=== PATIENT | female | born 1995 | race Caucasian/White ===

== ENCOUNTER → 2017-02-23 | Outpatient (REF) | payer OTHER ==
[~2017-02-23] MED LIST: CELE10TA PO; CELE20TA PO; CITA20TA4 PO; ZOLO50TA PO
== END ==
LOC: M LAB REF 20:00
PROVIDERS: ATTEND Physician Assistant
DX: R30.0 Dysuria (principal)

== ENCOUNTER 2017-03-28 23:42 | Inpatient (IN) | payer OTHER ==
[~2017-03-28] VITALS: Ht 170.2 cm; Wt 88.0 kg
[~2017-03-28 23:42] MED LIST changes: -CELE10TA PO; -CITA20TA4 PO
[2017-03-29 01:59] LABS: MEAN CORPUSCULAR HEMOGLOBIN 31.6 pg (27.0-33.0); MEAN CORPUSCULAR HGB CONC 34.7 g/dl (32.0-36.5); RED CELL DISTRIBUTION WIDTH 12.8 % (11.5-14.5); WHITE BLOOD COUNT 10.5 K/mm3 (4.0-10.0)
[2017-03-29 02:02] LABS: METHADONE URINE NEGATIVE (NEGATIVE)
[2017-03-29 02:03] LABS: GLUCOSE, FASTING 104 MG/DL (70-105)
[2017-03-29 02:04] LABS: ALKALINE PHOSPHATASE 83 U/L (45-117); ALT/SGPT 17 U/L (12-78); ANION GAP 0 MEQ/L (8-16); AST/SGOT 14 U/L (15-37); BILIRUBIN,DIRECT 0.1 MG/DL (0.0-0.2); BILIRUBIN,TOTAL 0.4 MG/DL (0.2-1.0); BLOOD UREA NITROGEN 7 MG/DL (7-18); CALCIUM LEVEL 8.6 MG/DL (8.5-10.1); CARBON DIOXIDE LEVEL 32 MEQ/L (21-32); CHLORIDE LEVEL 111 MEQ/L (98-107); CREATININE FOR GFR 0.75 MG/DL (0.55-1.02); GLOMERULAR FILTRATION RATE > 60.0 (>60); SODIUM LEVEL 143 MEQ/L (136-145); TOTAL PROTEIN 7.4 GM/DL (6.4-8.2)
[2017-03-29 02:05] LABS: ALBUMIN 3.9 GM/DL (3.2-5.2); ALBUMIN/GLOBULIN RATIO 1.11 (1.00-1.93); CONTROL LINE HCG INT CTR LINE PRESENT
[2017-03-29] MEDS ORDERED: LR 500 ML IV ONE (06:45)
[2017-03-29] MEDS ORDERED: MAALOX 30 ML SUSP *UDC PO PRN (09:00)
[2017-03-29] MEDS ORDERED: traZODone 50 MG TAB PO PRN (09:00)
[2017-03-29] MEDS ORDERED: MOM 30ML SUSPENSION UDC PO PRN (09:00)
[2017-03-29] MEDS ORDERED: ACETAMINOPHEN TAB 650MG DOSE (2X325MG) PO PRN (09:00)
[2017-03-29 11:29] VITALS: BP 121/84
[2017-03-29] MEDS ORDERED: LORazepam 2 MG TAB PO PRN (12:45)
--- NOTE | 2017-03-29 13:29 | MHHPE ---
DATE OF ADMISSION: 03/29/2017 Kaye Jha is a 21-year-old, single, white female who was driven here by her friend because she was drunk. She had drank in addition to her other alcohol an entire bottle of liquor. She apparently made suicidal statements. 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 She has worked there for 3 years. She has previously been admitted here in 2013 for suicide attempts. She does not remember her followup and was apparently here for a week. She is presently living with an aunt who has a son that the patient occasionally does cocaine with. Prior to that, she had been living with a roommate who she left after 1 month and prior to that living with a boyfriend who she left after a 3 year relationship. Her mother and brother are both from suicide attempts. Her father is in custodial for producing methamphetamine. PSYCHIATRIC HISTORY: As above. ALCOHOL HISTORY: Patient drinks every day Twist Teas 4-5 tall ones and at least a 1/4 bottle of vodka a night. She has been drinking this heavily for approximately 4-5 months. DRUG USE: As mentioned. She rarely does cocaine with her cousin. EDUCATIONAL HISTORY: High school diploma. Dropped out of college. MEDICAL HISTORY: Is negative. SURGICAL HISTORY: She had wrist surgery at age 12. LEGAL HISTORY: Is negative. The patient's speech is normal. No disturbance of thought processes. Mood is low. Affect is sad. No loose associations or psychotic thoughts. Judgment and Insight are poor. Fully oriented. Recent and remote memory are not intact at this time. Attention and concentration are poor. No disturbance of language. Full fund of knowledge. DIAGNOSIS: Major depression. Alcohol dependence. PLAN OF TREATMENT: Withdrawal orders to be given at this time and patient will be re-evaluated after withdrawal.
[2017-03-29] MEDS: FOLIC ACID 1 MG TAB PO SCH (13:36)
[2017-03-29] MEDS: MULTIVITAMINS/MINERALS THERAP 1 TAB PO SCH (13:36)
[2017-03-29] MEDS: THIAMINE 100 MG TAB PO SCH ×2 (13:36→21:00)
[2017-03-29 13:37] VITALS: BP 120/84
[2017-03-29 18:28] VITALS: BP 130/70
[2017-03-29 20:00] VITALS: BP 128/74
[2017-03-30 06:59] VITALS: BP 120/72
[2017-03-30] MEDS: THIAMINE 100 MG TAB PO SCH ×2 (09:17→21:08)
[2017-03-30] MEDS: FOLIC ACID 1 MG TAB PO SCH (09:17)
[2017-03-30] MEDS: MULTIVITAMINS/MINERALS THERAP 1 TAB PO SCH (09:17)
--- NOTE | 2017-03-30 10:20 | HPEPDOC ---
[facility] Medical History & Physical Date of Admission Mar 30, 2017 History and Physical PCP: None ATTENDING: Dr. Иван Liu HPI: 21 yo F admitted to [facility] for unspecified depressive disorder, being medically examined today. Patient is reluctant to provide history. Some of history is taken from the chart. No acute medical complaints today. Denies any fevers, chills, weakness, fatigue , BOWEN, CP, SOB, cough, palpitations, abdominal pain, N/V/D or changes in bowel or bladder habits. PMHx: Depression Anxiety History of SI. Overdose 2012. Substance use. Alcohol use. 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 Illicit Drugs: Patient denies. History of cocaine and marijuana use as per chart. IV Drug Use: Denies Tattoos done unprofessionally: Denies FAMHX: Mother: , suicide 2010 Father: Incarcerated related to methamphetamine manufacture. Siblings: One sister Alive, well. One brother , suicide 2013. Children: None Unexpected deaths due to medical reasons: None. ROS: As noted in HPI, otherwise 11pt ROS of systems reviewed and remarkable only for LMP 03/29/17. PE: GEN: 21 yo F, appears stated age. Well-nourished, well developed. No acute distress. Alert and oriented x 3. Avoids eye contact, reluctant to answer questions. HEENT: Normocephalic, atraumatic. Pupils are equal, round, and reactive to light. Extraocular movements are intact. No nystagmus appreciated. Sclera are nonicteric. Conjunctiva without injection. Nose midline. Nasal turbinates without bogginess. EACs both patent BL. TMs both visualized and lugo with good cone of light, no bulging or erythema. No facial asymmetry. Moist mucous membranes. Dentition fair. Pharynx pink and moist, no cobblestoning. Neck supple , trachea midline. No lymphadenopathy or thyromegaly appreciated. CHEST: Regular rate and rhythm, +S1, +S2 LUNGS: Clear to auscultation bilaterally. No wheezes, rales, or rhonchi. Breathing appears symmetric and easy. Patient is speaking in full sentences. No accessory muscle use. ABD: Round, soft, non-tender, non-distended. +Bowel sounds throughout. No rebound or guarding. No costovertebral angle tenderness. EXT: Pulses 2+ bilaterally dorsalis pedis and radial. No lower extremity edema appreciated. SKIN: [place], dry, warm. Capillary refill <2sec. No rashes. NEURO: Alert and oriented x 3. Cranial nerves III-XII are intact. No focal deficits appreciated. EKG: Pending. A&P: 21 yo F admitted to [facility] for unspecified depressive disorder. 1. Psych. Plan per Psychiatry. Obtain baseline EKG to assure the safety of psychiatric medications as they can prolong the QT interval. 2. Nicotine dependence. Patch available. 3. Mild leukocytosis. Patient is afebrile. Asymptomatic. Recheck CBC in a.m. 4. Follow up. No Primary Care Provider. Will attempt to establish PCP on discharge. 5. Substance use. Per psychiatry. Continue with MVI, Thiamine, and Folic Acid supplementation. 6. Staff member Rylie CARO present throughout exam. Vital Signs Vital Signs Date Time Temp Pulse Resp B/P (MAP) Pulse Ox O2 Delivery O2 Flow Rate FiO2 03/30/17 06:59 98.7 77 16 120/72 (88) 03/29/17 09:23 98 Room Air Home Medications No Active Prescriptions or Reported Meds Allergies Coded Allergies: No Known Allergies (Unverified , 03/19/13) Nandini Maher Mar 30, 2017 10:19
[2017-03-30] MEDS: CitaloPRAM (CeleXA) 10 MG TABLET PO SCH (11:45)
--- NOTE | 2017-03-30 11:53 | IPN ---
DATE: 03/30/2017 I met with Ms. Jha. She stated that she has been on Celexa since age 13, but stopped all of her medications 1-2 years ago. She stopped them because she was previously prescribed 1-2 years ago Wellbutrin, which she did not like. She states at times her depression is so bad she does not want to get out of bed. She feels people are against her, including her boss, he coworkers and her aunt. Her thoughts become slow. Her memory becomes decreased. She has treated this depression by drinking. I will begin patient on Celexa 30 mg by mouth every day. DIAGNOSES: Major depression. Alcohol abuse. MENTAL STATUS: Speech is normal. Thought processes normal. No loose associations. No psychotic thoughts. Judgment and insight are improved. Fully oriented. Recent and remote memory intact. Attention and concentration intact. No disturbance of language. Full fund of knowledge. Mood is neutral. Affect is same, neutral.
[2017-03-30 18:00] VITALS: BP 128/70
--- NOTE | 2017-03-30 19:56 | ECGEPIP ---
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
[2017-03-31 06:30] VITALS: BP 107/73
[2017-03-31 08:00] LABS: MEAN CORPUSCULAR HEMOGLOBIN 32.2 pg (27.0-33.0); RED CELL DISTRIBUTION WIDTH 12.7 % (11.5-14.5)
[2017-03-31] MEDS ORDERED: INFLUENZA QUADRIVALENT PF VACCINE 0.5ML SYRINGE (90686) IM ONE (09:00)
[2017-03-31] MEDS: THIAMINE 100 MG TAB PO SCH ×2 (09:51→21:07)
[2017-03-31] MEDS: CitaloPRAM (CeleXA) 10 MG TABLET PO SCH (09:51)
[2017-03-31] MEDS: MULTIVITAMINS/MINERALS THERAP 1 TAB PO SCH (09:52)
[2017-03-31] MEDS: FOLIC ACID 1 MG TAB PO SCH (09:52)
[2017-03-31 11:51] VITALS: BP 128/75
--- NOTE | 2017-03-31 12:09 | MHIPN ---
DATE: 03/31/2017 Ms. Jha is in improved mood today. Eye contact improved. She is having no difficulty with the Celexa 30 mg and is now deciding that she needs mental health and alcohol treatment followup. MENTAL STATUS EXAMINATION: Speech is normal. Thought processes show no abnormalities. No loose associations or psychotic thoughts. Judgment and insight improved. Fully oriented, with recent and remote memory intact. Attention and concentration are improved. No disturbances of language, with a full fund of knowledge. Mood is good. Affect is bright. PLAN: For outpatient alcohol and mental health treatment. Continue on Celexa 30 mg.
[2017-03-31 18:29] VITALS: BP 136/88
[2017-04-01 07:20] VITALS: BP 134/80
[2017-04-01 08:33] VITALS: BP 130/78
[2017-04-01] MEDS: MULTIVITAMINS/MINERALS THERAP 1 TAB PO SCH (08:52)
[2017-04-01] MEDS: CitaloPRAM (CeleXA) 10 MG TABLET PO SCH (08:52)
[2017-04-01] MEDS: FOLIC ACID 1 MG TAB PO SCH (08:52)
[2017-04-01 11:54] VITALS: BP 116/68
[2017-04-01 18:19] VITALS: BP 120/70
[2017-04-01 19:30] VITALS: BP 120/70
[2017-04-02 06:26] VITALS: BP 129/81
[2017-04-02] MEDS: MULTIVITAMINS/MINERALS THERAP 1 TAB PO SCH (09:14)
[2017-04-02] MEDS: CitaloPRAM (CeleXA) 10 MG TABLET PO SCH (09:14)
[2017-04-02] MEDS: FOLIC ACID 1 MG TAB PO SCH (09:14)
[2017-04-02 12:08] VITALS: BP 122/72
--- NOTE | 2017-04-02 15:17 | IPN ---
DATE: 04/02/2017 SUBJECTIVE: Kaye Jha is feeling well today. She is planning to go to outpatient. She is planning to some form of sobriety treatment, and she is planning to be discharged tomorrow. MENTAL STATUS EXAMINATION: Speech normal. No disturbance of thought processes. No loose associations. No psychotic thoughts. Mood is good. Affect is bright. Judgment and insight are good. Fully oriented. Recent and remote memory intact. No disturbance of attention and concentration. Language is normal. Full fund of knowledge. PRESENT MEDICATIONS: - citalopram 30 mg DIAGNOSES: 1. Adjustment disorder with depressed mood. 2. Alcohol abuse.
--- NOTE | 2017-04-02 15:50 | IPN ---
DATE: 04/01/2017 Ms. Jha continues in an improved mood. Eye contact is improved. The patient is having no difficulty with Celexa 30 mg and is continuing to feel that she needs mental health and alcohol treatment followup. MENTAL STATUS EXAMINATION: Speech is normal. Thought processes show no abnormalities. No loose associations or psychotic thoughts. Judgment and insight are improved. Fully oriented with recent and remote memory intact. Attention and concentration are improved. No disturbance of language. Full fund of knowledge. Mood is good. Affect is bright. Denies hallucinations, delusions, obsessions, compulsions, phobias. Denies suicidal ideation. PLAN: Outpatient alcohol and mental health treatment. Continue on Celexa 30 mg.
[2017-04-02 18:41] VITALS: BP 126/72
[2017-04-02 21:00] VITALS: BP 122/70
[2017-04-02 21:16] VITALS: BP 126/72
[2017-04-03 06:44] VITALS: BP 109/61
[2017-04-03] MEDS ORDERED: CELE10TA PO (08:35)
[2017-04-03] MEDS: MULTIVITAMINS/MINERALS THERAP 1 TAB PO SCH (08:44)
[2017-04-03] MEDS: FOLIC ACID 1 MG TAB PO SCH (08:44)
[2017-04-03] MEDS: CitaloPRAM (CeleXA) 10 MG TABLET PO SCH (08:44)
--- NOTE | 2017-04-03 10:18 | MHDS ---
DATE OF ADMISSION: 03/29/2017 DATE OF DISCHARGE: 04/03/2017 Kaye Jha, a 21-year-old single white female driven here by her friend because she was drunk. She was drunk in addition to her other alcohol intake, an entire bottle of liquor. She apparently made suicidal statements. 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 She was previously admitted here in 2013 for suicide attempt. She does not remember followup and was apparently here for a week. She is presently living with an aunt who has a son that the patient occasionally uses cocaine with. Prior to that, she had been living with a roommate who she left after a month and prior to that living with boyfriend who she left after a 3 year relationship. Her mother and brother are both from suicide attempts. Her father is in assisted for producing methamphetamine. ALCOHOL HISTORY: Patient drinks everyday Twisties four to five tall ones and a quarter bottle of vodka a night. DRUG USE: As mentioned. EDUCATIONAL HISTORY: High school diploma, dropped out of college. MEDICAL HISTORY: Negative. SURGICAL HISTORY: Wrist surgery age 12. LEGAL HISTORY: Negative. The patient's speech is normal and no disturbance of thought process. Mood is low. Affect sad. No loose associations, psychotic thoughts. Judgment and insight are poor on admission. Patient stated that she had been on Celexa age 13 but had stopped all medications 1-2 years ago because she was then prescribed Wellbutrin which she did not like. She states her depression is so bad at times she does not want to get out of bed and feels people are against her including her boss, coworkers and aunts. She was prescribed Celexa. Her mood began to improve. She is having no difficulty with her medication and had no significant withdrawal issues. Patient was planning to go to outpatient. She is planning sobriety treatment and hoping to be discharged. She continued in improved mood with no significant difficulties. MENTAL STATUS EXAMINATION ON DISCHARGE: Speech normal. Thought processes showed no abnormalities. No loose associations or psychotic thoughts. Her judgment and insight are improved. She is fully oriented. Recent and remote memory intact. Attention and concentration are improved. No disturbance of language. She had a full fund of knowledge. Her mood was good. Her affect was bright. She denies hallucinations, delusions, obsessions, compulsions, phobias and denies repetitively any suicidal ideation or plan. Laboratory examinations on 03/29 and 03/31/2017 showed no abnormalities of her CBC. Her serum chemistries were positive for a low AST and a mildly high chloride. On 03/29, she had a 0.179 alcohol. Otherwise her toxicology was negative. She is presently on citalopram 30 mg and was discharged as per discharge planning. DISCHARGE DIAGNOSES: Major depressive illness. Alcohol dependence. Discharge planning will involve alcohol rehabilitation as well as psychiatric followup. DARIO
[2017-04-03] MEDS ORDERED: CITA20TA4 PO (10:54)
== END 2017-04-03 15:00 | disposition home or self-care (01) | DRG 754 ==
LOC: M ED 23:42 → M ED INP 03-29 08:59 → M PSY 03-29 09:30
PROVIDERS: ADMIT Psychiatry & Neurology Psychiatry; ATTEND Psychiatry & Neurology Child & Adolescent Psychiatry
DX: F32.9 Major depressive disorder, single episode, unspecified (principal); D72.829 Elevated white blood cell count, unspecified; F10.20 Alcohol dependence, uncomplicated; F17.200 Nicotine dependence, unspecified, uncomplicated

== ENCOUNTER 2017-09-18 22:17 | Emergency (ER) | payer OTHER | END 2017-09-18 23:30 | disposition home or self-care (01) | LOC: M ED 22:17 | DX: B86 Scabies (principal); F17.210 Nicotine dependence, cigarettes, uncomplicated | CPT/HCPCS: 99282 ==

== ENCOUNTER → 2017-10-20 | Outpatient (CLI) | payer OTHER ==
[2017-10-20 13:20] LABS: BASO % 0.4 % (0.0-1.0); EOS # 0.4 10^3/uL (0.0-0.50); EOS % 4.3 % (0.0-3.0); HEMATOCRIT 40.5 % (36.0-47.0); IMMATURE GRANULOCYTE % 0.3 % (0-3.0); LYMPH # 2.4 10^3/uL (1.5-6.5); MEAN CORPUSCULAR HEMOGLOBIN 30.4 pg (27.0-33.0); MEAN CORPUSCULAR HGB CONC 34.6 g/dl (32.0-36.5); MONO # 0.5 10^3/uL (0.0-0.8); MONO % 5.3 % (0.0-5.0); NEUTROPHILS # 6.9 10^3/uL (1.8-7.7); NEUTROPHILS % 66.7 % (36.0-66.0); PLATELET COUNT, AUTOMATED 266 10^3/uL (150-450); RED CELL DISTRIBUTION WIDTH 12.2 % (11.5-14.5); WHITE BLOOD COUNT 10.3 10^3/uL (4.0-10.0)
[2017-10-20 14:19] LABS: RUBELLA IgG QUALITATIVE IMMUNE (IMMUNE)
[2017-10-20 14:23] LABS: HBsAg Prenatal NEGATIVE (NEGATIVE)
[2017-10-20 14:49] LABS: HIV 1&2 SCREEN CENTAUR NEGATIVE (NEGATIVE)
[2017-10-20 14:49] LABS: HEPATITIS C VIRUS ABY INDEX < 0.0 INDEX (<0.8)
== END ==
LOC: M SMT 11:33
DX: Z34.81 Encounter for supervision of other normal pregnancy, first trimester (principal)
CPT/HCPCS: 86762

== ENCOUNTER → 2017-12-12 | Outpatient (REF) | payer OTHER | LOC: M LAB REF 13:05 | DX: Z34.82 Encounter for supervision of other normal pregnancy, second trimester (principal) ==

== ENCOUNTER → 2018-01-12 | Outpatient (CLI) | payer OTHER | LOC: M RAD 11:03 | DX: Z34.82 Encounter for supervision of other normal pregnancy, second trimester (principal); Z36.89 Encounter for other specified antenatal screening; Z3A.18 18 weeks gestation of pregnancy | CPT/HCPCS: 76811 ==

== ENCOUNTER → 2018-02-06 | Outpatient (REF) | payer OTHER ==
[2018-02-06 22:10] LABS: CHLAMYDIA DNA AMPLIFICATION NEGATIVE (NEGATIVE); GC DNA AMPLIFICATION NEGATIVE (NEGATIVE)
== END ==
LOC: M LAB REF 17:05
DX: Z34.82 Encounter for supervision of other normal pregnancy, second trimester (principal); Z3A.00 Weeks of gestation of pregnancy not specified
CPT/HCPCS: 87086

== ENCOUNTER → 2018-02-16 | Outpatient (CLI) | payer OTHER | LOC: M RAD 06:49 | DX: Z34.82 Encounter for supervision of other normal pregnancy, second trimester (principal); Z3A.23 23 weeks gestation of pregnancy | CPT/HCPCS: 76816 ==

== ENCOUNTER → 2018-03-26 | Outpatient (CLI) | payer OTHER | LOC: M RAD 15:45 | DX: O32.1XX0 Maternal care for breech presentation, not applicable or unspecified (principal); Z36.89 Encounter for other specified antenatal screening; Z3A.29 29 weeks gestation of pregnancy | CPT/HCPCS: 76816 ==

== ENCOUNTER → 2018-05-12 | Outpatient (REF) | payer OTHER | LOC: M LAB REF 17:27 | DX: J02.9 Acute pharyngitis, unspecified (principal) ==

== ENCOUNTER → 2018-05-17 | Outpatient (REF) | payer OTHER | LOC: M LAB REF 12:40 | DX: Z34.83 Encounter for supervision of other normal pregnancy, third trimester (principal); Z3A.00 Weeks of gestation of pregnancy not specified | CPT/HCPCS: 87186 ==

== ENCOUNTER 2018-05-27 14:34 | Outpatient (CLI) | payer OTHER | END 2018-05-27 15:50 | disposition home or self-care (01) | LOC: M LDO 14:34 | DX: O36.8130 Decreased fetal movements, third trimester, not applicable or unspecified (principal); Z3A.37 37 weeks gestation of pregnancy | CPT/HCPCS: 59025 ==

== ENCOUNTER 2018-06-10 23:25 | Inpatient (IN) | payer OTHER ==
[2018-06-11] MEDS: LACTATED RINGER'S 1000 ML IV (00:45)
[2018-06-11] MEDS: PENICILLIN G POTASSIUM IV 5 MU in D5W MINI-BAG PLUS 100 ML IV (00:45)
[2018-06-11 01:01] LABS: BASO % 0.3 % (0.0-1.0); EOS # 0.3 10^3/uL (0.0-0.50); EOS % 1.9 % (0.0-3.0); HEMATOCRIT 34.2 % (36.0-47.0); HEMOGLOBIN 11.7 g/dl (12.0-15.5); IMMATURE GRANULOCYTE % 0.9 % (0-3.0); LYMPH # 2.7 10^3/uL (1.5-6.5); LYMPH % 19.7 % (24.0-44.0); MEAN CORPUSCULAR HEMOGLOBIN 30.1 pg (27.0-33.0); MEAN CORPUSCULAR HGB CONC 34.2 g/dl (32.0-36.5); MEAN CORPUSCULAR VOLUME 87.9 fl (80.0-96.0); MONO # 0.6 10^3/uL (0.0-0.8); MONO % 4.5 % (0.0-5.0); NEUTROPHILS # 10.1 10^3/uL (1.8-7.7); NEUTROPHILS % 72.7 % (36.0-66.0); PLATELET COUNT, AUTOMATED 248 10^3/uL (150-450); RED BLOOD COUNT 3.89 10^6/uL (4.00-5.40); RED CELL DISTRIBUTION WIDTH 12.3 % (11.5-14.5); WHITE BLOOD COUNT 13.9 10^3/uL (4.0-10.0)
[2018-06-11] MEDS ORDERED: FENTANYL 2MCG/ML ROPIVACAINE 0.2% IN 0.9% NACL 200ML IVBAG As Ordered (02:17)
[2018-06-11] MEDS ORDERED: LACTATED RINGER'S 1000 ML IV (02:40)
[2018-06-11] MEDS ORDERED: EPIDURAL COMMENT XX (02:40)
[2018-06-11] MEDS ORDERED: ePHEDrine SULFATE 25 MG/5 ML(5MG/ML) SYRINGE IV (02:40)
[2018-06-11] MEDS ORDERED: REFRIGERATOR IV KEYS XX (02:40)
[2018-06-11] MEDS ORDERED: NALOXONE INJ 0.4 MG/1 ML VIAL (J2310) IV (02:40)
[2018-06-11] MEDS ORDERED: diphenhydrAMINE INJ 50MG/ML VIAL (J1200) IV (02:40)
[2018-06-11] MEDS: FENTANYL/ROPIVACAINE/NACL BAG 200 ML EPIDURAL ×2 (02:40→17:38)
[2018-06-11] MEDS ORDERED: EPIDURAL/PCA KEYS XX (02:40)
[2018-06-11] MEDS ORDERED: ONDANSETRON 4MG/2ML VIAL (J2405) IV (02:40)
[2018-06-11] MEDS: LR 1,000 ML IV ×3 (03:29→16:43)
[2018-06-11] MEDS: PENICILLIN G POTASSIUM IV 2.5 MU in APPROPRIATE DILUENT 1 EA IV ×5 (05:00→21:07)
[2018-06-11] MEDS: OXYTOCIN DRIP 30 UNITS in APPROPRIATE DILUENT 1 EA IV (11:03)
[2018-06-11] MEDS: LIDOCAINE 1% MDV 20ML VIAL INFIL (22:01)
[2018-06-11 22:14] LABS: CORD GAS ABE V -5.4; CORD GAS HCO3 V 20.9 MEQ/L; CORD GAS O2 SAT V 55.8 %; CORD GAS PCO2 V 43.3 mmHg; CORD GAS PH V 7.301 UNITS; CORD GAS PO2 V 25.8 mmHg; CORD GAS SBC V 19.1 MEQ/L; CORD GAS TCO2 V 22.2 MEQ/L
[2018-06-11] MEDS ORDERED: RHOGAM 300 MCG (1500 IU) INJ (J2790) IM (22:45)
[2018-06-11] MEDS ORDERED: ANUSOL HC CREAM 30GM TOP (22:45)
[2018-06-11] MEDS ORDERED: MEASLES,MUMPS,RUBELLA VACCINE INJ (MMR-II) (90707) SC (22:45)
[2018-06-11] MEDS ORDERED: DOCUSATE SODIUM 100 MG CAP PO (22:45)
[2018-06-11] MEDS ORDERED: MOM 30ML SUSPENSION UDC PO (22:45)
[2018-06-11] MEDS ORDERED: METHYLERGONOVINE MALEATE 0.2 MG TAB PO (22:45)
[2018-06-12] MEDS: IBUPROFEN 800 MG TAB PO ×2 (06:41→19:48)
[2018-06-12] MEDS: PRENATAL VITAMINS CHEWABLE TABLET PO (09:20)
[2018-06-12] MEDS: ACETAMINOPHEN 500 MG TAB PO (13:38)
[2018-06-12] MEDS: DIBUCAINE 1% OINTMENT 30GM TOP (19:50)
[2018-06-13] MEDS: PRENATAL VITAMINS CHEWABLE TABLET PO (09:04)
== END 2018-06-13 11:42 | disposition home or self-care (01) | DRG 560 ==
LOC: M LDO 23:25 → M LDI 06-11 00:10 → M OBS 06-12 00:19
PROVIDERS: Advanced Practice Midwife
PROC: 10E0XZZ Delivery of Products of Conception, External Approach (ICD-10-PCS; principal; 2018-06-11)
PROC: 0HQ9XZZ Repair Perineum Skin, External Approach (ICD-10-PCS; 2018-06-11)
DX: O69.3XX0 Labor and delivery complicated by short cord, not applicable or unspecified (principal); O99.820 Streptococcus B carrier state complicating pregnancy; Z37.0 Single live birth; Z3A.39 39 weeks gestation of pregnancy; O70.1 Second degree perineal laceration during delivery

== ENCOUNTER → 2018-08-02 | Outpatient (CLI) | payer OTHER ==
[~2018-08-02] MED LIST changes: +CELE10TA PO; +CITA20TA4 PO; +ELIM5CRE2 TOP; +IBUP-1114 PO; +MAPA500T2 PO; +PRENTAB9 PO; +ZYRT10CA5 PO
[2018-08-02 18:28] LABS: FREE T4 1.06 NG/DL (0.76-1.46); THYROID STIMULATING HORMONE 1.38 uIU/ML (0.358-3.740); TOTAL 25(OH) VITAMIN D 19.4 NG/ML (30.0-100.0)
== END ==
LOC: M SMT 13:50
PROVIDERS: ATTEND Advanced Practice Midwife
DX: F53.0 Postpartum depression (principal)

== ENCOUNTER → 2018-08-14 | Outpatient (REF) | payer OTHER ==
[2018-08-14 15:24] LABS: CHLAMYDIA DNA AMPLIFICATION NEGATIVE (NEGATIVE); GC DNA AMPLIFICATION NEGATIVE (NEGATIVE)
== END ==
LOC: M LAB REF 13:34
PROVIDERS: ATTEND Advanced Practice Midwife
DX: Z11.3 Encounter for screening for infections with a predominantly sexual mode of transmission (principal)

== ENCOUNTER 2018-11-01 18:25 | Emergency (ER) | payer OTHER ==
[~2018-11-01] VITALS: Ht 160 cm; Wt 99.7 kg
[~2018-11-01 18:25] MED LIST changes: -CITA20TA4 PO; +CITA20TA6 PO
[2018-11-01] MEDS ORDERED: CITA10TA5 (18:30)
[2018-11-01] MEDS ORDERED: LIDOCAINE 2% MDV 20 ML VIAL SC ONE (18:45)
[2018-11-01 20:07] VITALS: BP 130/61
== END 2018-11-01 20:26 | disposition home or self-care (01) ==
LOC: M ED 18:25
DX: L60.0 Ingrowing nail (principal); F32.9 Major depressive disorder, single episode, unspecified; Z79.899 Other long term (current) drug therapy

== ENCOUNTER → 2019-04-06 | Outpatient (REF) | payer OTHER ==
[~2019-04-06] MED LIST changes: +CITA10TA5
== END ==
LOC: M LAB REF 09:27
PROVIDERS: ATTEND Physician Assistant
DX: N39.0 Urinary tract infection, site not specified (principal)

== ENCOUNTER → 2019-12-26 | Outpatient (REF) | payer OTHER ==
[~2019-12-26] MED LIST changes: +ASPE4PAD TOP; +AUGM875T28 PO; +CIPR500T3 PO; +CIPRHCOTIC OTIC; +IBUP-1022 PO; +MIRE1IUD IU; +PHEN-501 PO
== END ==
LOC: M LAB REF 15:13
PROVIDERS: ATTEND Physician Assistant
DX: N39.0 Urinary tract infection, site not specified (principal)

== ENCOUNTER 2019-12-29 17:34 | Emergency (ER) | payer OTHER ==
[~2019-12-29] VITALS: Ht 162.6 cm; Wt 97.3 kg
[~2019-12-29 17:34] MED LIST changes: -ASPE4PAD TOP; -AUGM875T28 PO; -CIPR500T3 PO; -CIPRHCOTIC OTIC; -IBUP-1022 PO; -MIRE1IUD IU; -PHEN-501 PO
[2019-12-29] MEDS ORDERED: CIPR500T3 PO (17:40)
[2019-12-29] MEDS ORDERED: PHEN-501 PO (17:40)
[2019-12-29] MEDS ORDERED: NS 1,000 ML IV ONE (18:00)
[2019-12-29] MEDS ORDERED: METHOCARBAMOL 1,000 MG/10 ML VIAL (J2800) IV ONE (18:00)
[2019-12-29 18:18] LABS: BASO # 0.1 10^3/uL (0.0-0.2); BASO % 0.6 % (0.0-1.0); EOS # 0.5 10^3/uL (0.0-0.5); EOS % 3.6 % (0.0-3.0); HEMATOCRIT 42.7 % (36.0-47.0); HEMOGLOBIN 14.2 g/dl (12.0-15.5); LYMPH # 3.4 10^3/uL (1.5-5.0); LYMPH % 27.3 % (24.0-44.0); MEAN CORPUSCULAR HEMOGLOBIN 29.3 pg (27.0-33.0); MEAN CORPUSCULAR HGB CONC 33.3 g/dl (32.0-36.5); MONO # 0.6 10^3/uL (0.0-0.8); MONO % 5.1 % (0.0-5.0); NEUTROPHILS # 7.9 10^3/uL (1.5-8.5); NEUTROPHILS % 63.1 % (36.0-66.0); PLATELET COUNT, AUTOMATED 299 10^3/uL (150-450); RED BLOOD COUNT 4.85 10^6/uL (4.00-5.40); WHITE BLOOD COUNT 12.4 10^3/uL (4.0-10.0)
[2019-12-29] MEDS: KETOROLAC 30 MG/ML 1ML VIAL IV ONE ×2 (19:28→19:31)
[2019-12-29 19:39] VITALS: BP 146/84
== END 2019-12-29 19:43 | disposition home or self-care (01) ==
LOC: M ED 17:34
DX: R31.29 Other microscopic hematuria (principal); F17.200 Nicotine dependence, unspecified, uncomplicated; M54.9 Dorsalgia, unspecified; Z87.440 Personal history of urinary (tract) infections
CPT/HCPCS: 80047; 81001; 84702; 85025; 87086; 96361; 96374; 99284; J2800

== ENCOUNTER 2020-01-09 23:07 | Emergency (ER) | payer OTHER ==
[~2020-01-09] VITALS: Ht 162.6 cm; Wt 96.6 kg
[~2020-01-09 23:07] MED LIST changes: +CIPR500T3 PO; +PHEN-501 PO
[2020-01-09] MEDS ORDERED: MIRE1IUD IU (23:17)
[2020-01-10 00:44] VITALS: BP 128/75
[2020-01-10] MEDS ORDERED: AUGMENTIN 875 MG TAB PO ONE (00:45)
[2020-01-10] MEDS ORDERED: CIPROFLOXACIN HC OTIC SUSPENSION AD ONE (00:45)
[2020-01-10] MEDS ORDERED: LIDOCAINE 5% (LIDODERM) PATCH TD ONE (00:45)
[2020-01-10] MEDS ORDERED: IBUPROFEN 600MG TAB PO ONE (00:45)
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
[2020-01-10] MEDS ORDERED: CIPRHCOTIC OTIC (01:30)
[2020-01-10] MEDS ORDERED: ASPE4PAD TOP (01:30)
[2020-01-10] MEDS ORDERED: AUGM875T28 PO (01:30)
[2020-01-10] MEDS ORDERED: IBUP-1022 PO (01:30)
[2020-01-10] MEDS ORDERED: **NOTE PATIENT COMMENT** MISC XX ONE (13:00)
== END 2020-01-10 02:03 | disposition home or self-care (01) ==
LOC: M ED 23:07
DX: H60.8X1 Other otitis externa, right ear (principal); M54.2 Cervicalgia

== ENCOUNTER → 2020-02-14 | Outpatient (REF) | payer OTHER ==
[~2020-02-14] MED LIST changes: +ASPE4PAD TOP; +AUGM875T28 PO; +CIPRHCOTIC OTIC; +CITA10TA5 PO; +EXCETAB33 PO; +IBUP-1022 PO; +MIRE1IUD IU
== END ==
LOC: M LAB REF 09:16
PROVIDERS: ATTEND Physician Assistant
DX: H60.501 Unspecified acute noninfective otitis externa, right ear (principal)

== ENCOUNTER 2020-03-27 12:43 | Emergency (ER) | payer OTHER ==
[~2020-03-27] VITALS: Ht 162.6 cm; Wt 101.3 kg
[~2020-03-27 12:43] MED LIST changes: -CITA10TA5 PO; -EXCETAB33 PO
[2020-03-27 12:45] VITALS: BP 125/67
[2020-03-27] MEDS ORDERED: EXCETAB33 PO (12:52)
[2020-03-27] MEDS ORDERED: CITA10TA5 PO (12:52)
[2020-03-27 14:25] LABS: HEMATOCRIT 42.9 % (36.0-47.0); HEMOGLOBIN 14.2 g/dl (12.0-15.5); MEAN CORPUSCULAR HEMOGLOBIN 29.5 pg (27.0-33.0); MEAN CORPUSCULAR HGB CONC 33.1 g/dl (32.0-36.5); PLATELET COUNT, AUTOMATED 248 10^3/uL (150-450); RED BLOOD COUNT 4.82 10^6/uL (4.00-5.40); WHITE BLOOD COUNT 13.5 10^3/uL (4.0-10.0)
[2020-03-27 14:45] LABS: BLOOD UREA NITROGEN 11 MG/DL (7-18); CALCIUM LEVEL 9.2 MG/DL (8.5-10.1); CARBON DIOXIDE LEVEL 25 MEQ/L (21-32); CHLORIDE LEVEL 107 MEQ/L (98-107); CREATININE FOR GFR 0.73 MG/DL (0.55-1.30); GLOMERULAR FILTRATION RATE > 60.0 (>60); GLUCOSE, FASTING 97 MG/DL (70-100); POTASSIUM SERUM 4.3 MEQ/L (3.5-5.1); SODIUM LEVEL 138 MEQ/L (136-145)
--- NOTE | 2020-03-28 12:02 | ECGEPIP ---
[facility] - ED Test Date: 2020-03-27 Pat Name: KINGSLEY PEREZ Department: Room: - Gender: Female Incident Commander: PATRICIA : 1995 Requested By: LUIS MIGUEL ZAVALA PA-C. Order Number: [id number] Reading MD: Nabor Presley Measurements Intervals [place] Rate: 83 P: 42 WV: 155 QRS: 30 QRSD: 86 T: 29 QT: 357 QTc: 421 Interpretive Statements SINUS RHYTHM SIMILAR TO 03/30/17 Electronically Signed on 03-28-2020 12:01:58 EDT by Nabor Presley
== END 2020-03-27 15:06 | disposition left against medical advice (07) ==
LOC: EEVIPCON 12:43 → M ED 12:43
DX: H60.8X1 Other otitis externa, right ear (principal); R42 Dizziness and giddiness; Z53.20 Procedure and treatment not carried out because of patient's decision for unspecified reasons; F17.200 Nicotine dependence, unspecified, uncomplicated; Z79.82 Long term (current) use of aspirin; Z79.899 Other long term (current) drug therapy

== ENCOUNTER 2020-08-09 20:07 | Emergency (ER) | payer OTHER ==
[~2020-08-09] VITALS: Ht 165.1 cm; Wt 97.7 kg
[~2020-08-09 20:07] MED LIST changes: +CITA10TA5 PO; +EXCETAB33 PO
--- OUTSIDE RECORDS SUMMARY | 2020-08-09 21:16 | CCD | Continuity of Care Document ---
Author Author Kaye OLEARY MD Organization Unknown Address [address] [place] [address] Phone [phone] Care Team Providers Care Promotions Executive Name Role Phone Samaria Oleary MD AUTM [phone] [facility] Behavioral Health AUTM [phone] [facility] Gastroenterology AUTM [phone] [place] ENT AUTM [phone] [facility] Nutrition Services AUTM [phone] [facility] AUTM [phone] [facility] AUTM [facility] Physical Therapy AUTM [phone] Problems Active Problems Provider Date Obesity Samaria Oleary MD Onset: 03/04/2020 Depressive disorder Samaria Oleary MD Onset: 03/04/2020 Tobacco user Samaria Oleary MD Onset: 03/04/2020 Prediabetes Samaria Oleary MD Onset: 03/05/2020 Social History Type Date Description Comments Sex Unknown Tobacco Use Start: Unknown Patient is a current cigarette smoker, smokes every day Tobacco Use Start: Unknown Light tobacco smoker (10 or fewe r cigarettes/day) Tobacco Use Start: Unknown Never Smoked Cigars Tobacco Use Start: Unknown Never Smoked A Pipe Tobacco Use Start: Unknown Never Used Smokeless Tobacco ETOH Use Rarely consumes alcohol Tobacco Use Start: Unknown Patient is a current smoker, smo kes every day Recreational Drug Use Denies Drug Use Tobacco Use Start: Unknown Light tobacco smoker (10 or fewe r cigarettes/day) Allergies, Adverse Reactions, Alerts Active Allergies Reaction Severity Comments Date NKDA 03/04/2020 NKEA 04/14/2020 NKFA 04/14/2020 Medications Active Medications SIG Qnty Indications Ordering Provide r Date Prednisone 10mg Tablets 3 tablets by mouth daily for 2 days. then 2 tablets daily for 2 days. then 1 tablet daily for 2 days. 12angelia Oleary MD 06/11/2020 Magnesium 500mg Capsules 1 by mouth every day 30caps Samaria Oleary MD 05/15/2020 Vitamin D3 Ultra Potency 1.25mg (79666 Ut) Tablets 1 tablet once a week by mouth 12angelia ron MD 05/15/2020 Mirena (52 MG) 20mcg/24HR IUD after insert remove after 5 yr 1untootie Oleary MD 04/14/20 20 Citalopram Hydrobromide 20mg Table ts 1 tablet by mouth daily. 30angelia Oleary MD 12/2019 Glucometer Device test blood glucose three times daily 1untootie Oleary MD 04/14/20 20 Glucose Meter Test Strips Advanced Strips test glucose three times before meals 200units Maria Elena Oleary MD 04/14/2020 Lancets Ultra Fine Misc dispense a box of 100 lancets. check glucose three times daily 100units Maria Elena Oleary MD 04/14/2020 History Medications Amoxicillin/Clavulanate Potassium 875-125mg Tablets 1 by mouth twice a day 14tajoanna Oleary MD 05/07/2020 - 05/15/2020 No Active Medications Unknown - 03/04/2020 Citalopram Hydrobromide 10mg Table ts 1 tablet by mouth daily. 30angelia Oleary MD - 04/14/2020 Immunizations Description No Information Available Vital Signs Date Vital Result Comment 06/11/2020 1:03pm BP Systolic 122 mmHg BP Diastolic 78 mmHg Heart Rate 95 /min Body Temperature 97.6 F Respiratory Rate 16 /min O2 % BldC Oximetry 98 % Weight 219.12 lb Weight 99.395 kg Height 64 inches 5'4" BMI (Body Mass Index) 37.6 kg/m2 BSA (Body Surface Area) 2.03 m2 05/15/2020 1:12pm BP Systolic 128 mmHg BP Diastolic 78 mmHg Heart Rate 112 /min Body Temperature 97.9 F Respiratory Rate 16 /min O2 % BldC Oximetry 95 % Weight 220.38 lb Weight 99.962 kg Height 64 inches 5'4" BMI (Body Mass Index) 37.8 kg/m2 BSA (Body Surface Area) 2.04 m2 Results Test Acquired Date Facility Test Result H/L Range Note Laboratory test finding 06/11/2020 [facility] Aldolase 6.2 U/L 3.3-10.3 CPK 175 U/L High 30 - 170 Xray 06/11/2020 [facility] [address] [place] [address] [phone] Knee Ap & Lat RT <pending> Xray 06/11/2020 [facility] [address] [place], [place] [id number] [phone] US Ext-Non Vascular RT Complete <pending> Laboratory test finding 05/15/2020 [facility] Magnesium Serum 2.0 mg/dL 1.7 - 2.2 1 Lyme Disease Antibodies 05/15/2020 [facility] Lyme IgG/IgM Ab <0.91 ISR 0.00-0.90 2 Lyme Disease Ab, Quant,IgM 1.30 index High 0.00-0.79 3 IgG P93 Ab. Absent IgG P66 Ab. Absent IgG P58 Ab. Absent IgG P45 Ab. Absent IgG P41 Ab. Present Abnormal IgG P39 Ab. Absent IgG P30 Ab. Absent IgG P28 Ab. Absent IgG P23 Ab. Absent IgG P18 Ab. Absent Lyme IgG Line BlotInterp. Negative 4 IgM P41 Ab. Absent IgM P39 Ab. Absent IgM P23 Ab. Absent Lyme IgM Line BlotInterp. Negative 5 Laboratory test finding 05/15/2020 [facility] Glucose 90 mg/dL 65 - 110 Debby Ifa Negative 6 Sedimentation Rate 05/15/2020 [facility] Sed Rate 6 mm/hr 0 - 20 Sed Rate Reenter 6 Laboratory test finding 05/15/2020 [facility] Ra Quant <10 IU/mL 0 - 14 CPK 554 U/L High 30 - 170 Order 04/14/2020 In Office Inhouse EKG Given to Pcp Laboratory test finding 04/14/2020 [facility] Hgba1c 6.2 % High 4.4 - 6.1 7 Basic Metabolic Panel 04/14/2020 [facility] Basic Metabolic Pane (SEE NOTE) 8 Sodium 138 mEq/L 134 - 153 Potassium 4.4 mEq/L 3.6 - 5.0 Chloride 101 mEq/L 98 - 107 Co2 25 mEq/L 22 - 30 Glucose 99 mg/dL 65 - 110 BUN 13 mg/dL 7 - 21 Creatinine 0.8 mg/dL 0.7 - 1.5 BUN/Creat 16 8 - 27 Calcium 9.4 mg/dL 8.4 - 10.2 Anion Gap 12.0 mmol/L 8.0 - 16.0 Age 24 yrs Afr Amer GFR >60 mL/min Non-Aa GFR >60 mL/min 9 Comprehensive Metabolic Panel 03/04/2020 [facility] Comprehensive Metabo (SEE NOTE) 10 Sodium 135 mEq/L 134 - 153 Potassium 3.9 mEq/L 3.6 - 5.0 Chloride 101 mEq/L 98 - 107 Co2 22 mEq/L 22 - 30 Glucose 199 mg/dL High 65 - 110 BUN 11 mg/dL 7 - 21 Creatinine 0.7 mg/dL 0.7 - 1.5 BUN/Creat 16 8 - 27 Total Protein 7.3 g/dL 6.3 - 8.2 Albumin 4.6 g/dL 3.9 - 5.0 Globulin 2.7 GM/DL 2.4 - 3.2 A/G Ratio 1.7 0.8 - 2.0 Calcium 9.6 mg/dL 8.4 - 10.2 Total Bili <0.7 mg/dL 0.2 - 1.3 Alkaline Phos 75 U/L 38 - 126 Sgot/Ast 15 U/L 5 - 40 SGPT/Alt 13 U/L 7 - 56 Anion Gap 12.0 mmol/L 8.0 - 16.0 Age 24 yrs Non-Aa GFR >60 mL/min Afr Amer GFR >60 mL/min 11 Laboratory test finding 03/04/2020 [facility] TSH Highly Sensitive 0.84 uIU/mL 0.47 - 5.01 Vitamin D (25-Hydroxy) 25 NG/ML 12 Vitamin B12 Serum 383 pg/mL 232 - 1245 Hgba1c 6.3 % High 4.4 - 6.1 13 Culture MRSA 03/04/2020 [facility] Culture MRSA (SEE NOTE) 14 CBC No Diff 03/04/2020 [facility] CBC No Diff (SEE NOTE) 15 WBC 10.7 10^3/uL 4.2 - 11.0 RBC 4.86 10^6/uL 4.20 - 5.40 Hemoglobin 14.4 g/dL 12.0 - 16.0 Hematocrit 42.5 % 37.0 - 47.0 MCV 87.4 fL 81.0 - 101 MCH 29.6 pg 27.0 - 34.0 MCHC 33.9 g/dL 31.0 - 36.0 RDW 12.9 % 11.5 - 14.5 Platelets 259 10^3/uL 150 - 450 MPV 10.9 fL High 7.4 - 10.4 1 Is patient fasting? N 2 Negative <0.91 Equivocal 0.91 - 1.09 Positive >1.09 3 Negative <0.80 Equivocal 0.80 - 1.19 Positive >1.19 IgM levels may peak at 3-6 weeks post infection, then gradually decline. 4 Positive: 5 of the following Borrelia-specific bands: 18,23,28,30,39,41,45,58, 66, and 93. Negative: No bands or banding patterns which do not meet positive criteria. 5 Note: An equivocal or positi ve EIA result followed by a negative Line Blot result is considered NEGATIVE. An equivocal or positive EIA result followed by a positive Line Blot is considered POSITIVE by the CDC. Positive: 2 of the following bands: 23,39 or 41 Negative: No bands or banding patterns which do not meet positive criteria. Criteria for positivity are those recommended by CDC/ASTPHLD. p23=Osp C, k53=dxgqegyal Note: Sera from individuals with the following may cross react in the Lyme Line Blot assays: other spirochetal diseases (periodontal disease, leptospirosis, relapsing fever, yaws, and pinta); connective autoimmune (Rheumatoid Arthritis and Systemic Lupus Erythematosus and also individuals with Antinuclear Antibody); other infections ([place] Spotted Fever; Shayy-Garcia Virus, and Cytomegalovirus). 6 Negative <1:80 Borderline 1:80 Positive >1:80 7 {A1] {HB] 8 BASIC METABOLIC PANEL 9 Male GFR Interprentation 20-49 yrs >60 mL/min Normal 50-59 yrs >56 mL/min Normal 60-69 yrs >49 mL/min Normal 70-79yrs >42 mL/min Normal 80 and above >35 mL/min Normal Female GFR Interpretation 20-39 yrs >60 mL/min Normal 40-49 yrs >58 mL/min Normal 50-59 yrs >51 mL/min Normal 60-69 yrs >45 mL/min Normal 70-79 yrs >39 mL/min Normal 80 and above >32 mL/min Normal 10 COMPREHENSIVE METABOLIC PANE L 11 Male GFR Interprentation 20-49 yrs >60 mL/min Normal 50-59 yrs >56 mL/min Normal 60-69 yrs >49 mL/min Normal 70-79yrs >42 mL/min Normal 80 and above >35 mL/min Normal Female GFR Interpretation 20-39 yrs >60 mL/min Normal 40-49 yrs >58 mL/min Normal 50-59 yrs >51 mL/min Normal 60-69 yrs >45 mL/min Normal 70-79 yrs >39 mL/min Normal 80 and above >32 mL/min Normal 12 VITAMIN-D(25HYDROXY) Deficiency: <=20 ng/ml Insufficiency: 21-29 ng/ml Preferred level: => 30 ng/ml 13 {A1] {HB] 14 _CULTURE MRSA SCREENING_ SEE SEPARATE REFERENCE LAB REPORT 15 COMPLETE BLOOD COUNT Procedures Date Code Description Status 04/14/2020 95836 Admin Patient Focused Health Ris k Assessment Instrument Completed 04/14/2020 25175 Brief Emotional/Beha v Assessment W/ Scoring Doc Per Standard Inst Completed 04/14/2020 49056 Electrocardiogram Complete Compl eted Medical Devices Description No Information Available Encounters Description No Information Available Assessments Date Code Description Provider 06/11/2020 M25.561 Pain in right knee Samaira king MD 06/11/2020 M79.10 Myalgia, unspecified site Samaria wright MD 06/11/2020 R73.03 Prediabetes Samaria collier MD 05/15/2020 M79.10 Myalgia, unspecified site Samaria wright MD 05/15/2020 R55 Syncope and collapse Samaria ron MD 05/15/2020 R25.2 Cramp and spasm Samaria collier MD 05/15/2020 F32.89 Other specified depressive episo desiree Samaria Oleary MD 04/14/2020 R55 Syncope and collapse Samaria rno MD 04/14/2020 M54.2 Cervicalgia Samaria collier MD 04/14/2020 M54.5 Low back pain Samaria collier MD 04/14/2020 F32.89 Other specified depressive episo desiree Samaria Oleary MD 04/14/2020 R73.03 Prediabetes Samaria collier MD 03/04/2020 Z00.00 Encounter for genera l adult medical examination without abnormal findings Samaria Oleary MD 03/04/2020 E66.9 Obesity, unspecified Samaria ron MD 03/04/2020 F32.89 Other specified depressive episo desiree Samaria Oleary MD 03/04/2020 H60.8x1 Other otitis externa, right ear Samaria Oleary MD 03/04/2020 K59.00 Constipation, unspecified Samaria wright MD 03/04/2020 F17.210 Nicotine dependence, cigarettes, uncomplicated Samaria Oleary MD Plan of Treatment Future Appointment(s):* 08/18/2020 1:00 pm - Samaria Oleary MD at [facility] 06/11/2020 - Samaria Oleary MD* M25.561 Pain in right knee* Recommendations: * Likely bursitis. We will get x-ray of the knee and also get ultrasound to rule out Coley's cyst. She was given tapering dose of prednisone. She can take ibuprofen as needed for pain. Rest, ice, use knee brace as needed for comfort. * M79.10 Myalgia, unspecified site* Recommendations:* She has chronic symptoms of myalgia. She had elevated CPK of 554. We will check CPK and aldolase. * R73.03 Prediabetes* Recommendations:* She has made changes in her diet. Her fasting blood sugars are running close to 100. * All * New Medication:* Prednisone 10 mg - 3 tablets by mouth daily for 2 days. then 2 tablets daily for 2 days. then 1 tablet daily for 2 days. * Follow up:* 3 months or earlier if knee pain is not improving. Functional Status Description No Information Available Mental Status Description No Information Available Referrals Refer to Reason for Referral Status Appt Date [facility] Physical Therapy 24-year-old female wi th neck and low back pain. Please evaluate and treat. Thank you. Closed [address] [place] [address] [phone] [facility] 24-year-old female with hist ory of syncope, but recently symptoms are getting more frequent. In-house EKG is normal. Please evaluate and treat. Thank you. Sent [phone] [place] [address] [phone] [facility] 24-year-old female with h istory of recurrent syncope and dizziness, but recently symptoms are getting more frequent. Please evaluate and treat. Thank you. Patient Notified 06/11/2020 [address] [place] [address] [phone] [facility] Nutrition Services 24 year old with obesity and prediabe ronal A1c 6.4. 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 Please evaluate and treat as needed. Thank you. Patient Notified 04/13/2020 [address] [place] [address] [phone] [facility] Behavioral Health 24-year-old female with hist ory of depression. Please evaluate and treat as needed. Thank you. Closed 04/02/2020 [address] [place] [address] [phone] [facility] ENT 24-year-old female with pers istent ear infection. ?chronic suppurative otitis media with perforation.Please evaluate and treat as needed. Thank you. Closed 03/20/2020 [address] [facility] [address] [place], [place] [address] [phone]
--- OUTSIDE RECORDS SUMMARY | 2020-08-09 21:16 | CCD | Continuity of Care Document ---
Author Author Kaye OLEARY MD Organization Unknown Address [address] [place] [address] Phone [phone] Care Team Providers Care Operations Lead Name Role Phone Samaria Oleary MD AUTM [phone] [facility] Behavioral Health AUTM [phone] [facility] Gastroenterology AUTM [phone] [place] ENT AUTM [phone] [facility] Nutrition Services AUTM [phone] [facility] AUTM [phone] [facility] AUTM [facility] Physical Therapy AUTM Problems Active Problems Provider Date Obesity Samaria [...] MD 05/15/2020 Vitamin D3 Ultra Potency 1.25mg (26342 Ut) Tablets 1 tablet once a week [...] H/L Range Note Laboratory test finding 06/11/2020 [facility] CPK 175 U/L High 30 - 170 Xray 06/11/2020 [facility] [address] [place] [address] [phone] Knee Ap & Lat RT <pending> Xray 06/11/2020 [facility] [address] [place] [address] [phone] US Ext-Non Vascular RT Complete <pending> Laboratory test finding 05/15/2020 [facility] Magnesium Serum 2.0 mg/dL 1.7 - 2.2 1 Lyme Disease Antibodies 05/15/2020 [facility] Lyme IgG/IgM Ab <0.91 ISR 0.00-0.90 2 [...] BlotInterp. Negative 5 Laboratory test finding 05/15/2020 [facility] Glucose 90 mg/dL 65 - 110 Debby Ifa Negative 6 Sedimentation Rate 05/15/2020 [facility] Sed Rate 6 mm/hr 0 - 20 Sed Rate Reenter 6 Laboratory test finding 05/15/2020 [facility] Ra Quant <10 IU/mL 0 - 14 CPK 554 U/L High 30 - 170 Order 04/14/2020 In Office Inhouse EKG Given to Pcp Laboratory test finding 04/14/2020 [facility] Hgba1c 6.2 % High 4.4 - 6.1 7 Basic Metabolic Panel 04/14/2020 [facility] Basic Metabolic Pane (SEE NOTE) 8 [...] >60 mL/min 9 Comprehensive Metabolic Panel 03/04/2020 [facility] ospital Comprehensive Metabo (SEE NOTE) 10 [...] >60 mL/min 11 Laboratory test finding 03/04/2020 [facility] TSH Highly Sensitive 0.84 uIU/mL 0.47 - 5.01 Vitamin D (25-Hydroxy) 25 NG/ML 12 Vitamin B12 Serum 383 pg/mL 232 - 1245 Hgba1c 6.3 % High 4.4 - 6.1 13 Culture MRSA 03/04/2020 [facility] Culture MRSA (SEE NOTE) 14 CBC No Diff 03/04/2020 [facility] CBC No Diff (SEE NOTE) 15 [...] are those recommended by CDC/ASTPHLD. p23=Osp C, s83=kjpvcbljr Note: Sera from individuals with the following may cross react in the Lyme Line Blot assays: other spirochetal diseases (periodontal disease, leptospirosis, relapsing fever, yaws, and pinta); connective autoimmune (Rheumatoid Arthritis and Systemic Lupus Erythematosus and also individuals with Antinuclear Antibody); other infections ([place] Spotted Fever; Shayy-Garcia Virus, and Cytomegalovirus). 6 [...] COUNT Procedures Date Code Description Status 04/14/2020 98587 Admin Patient Focused Health Ris k Assessment Instrument Completed 04/14/2020 08736 Brief Emotional/Beha v Assessment W/ Scoring Doc Per Standard Inst Completed 04/14/2020 99298 Electrocardiogram Complete Compl eted Medical Devices Description No Information Available Encounters Description No Information Available Assessments Date Code Description Provider 06/11/2020 M25.561 Pain in right knee Samaria king MD 06/11/2020 M79.10 Myalgia, unspecified site Samaria wright MD 06/11/2020 R73.03 Prediabetes Samaria collier MD 05/15/2020 M79.10 Myalgia, unspecified site Samaria wright MD 05/15/2020 R55 Syncope and collapse Samaria ron MD 05/15/2020 R25.2 Cramp and spasm Samaria collier MD 05/15/2020 F32.89 Other specified depressive episo desiree Samaria Oleary MD 04/14/2020 R55 Syncope and collapse Samaria ron MD 04/14/2020 M54.2 Cervicalgia Samaria collier MD [...] 1:00 pm - Samaria Oleary MD at [facility] 06/11/2020 - Samaria Oleary MD* M25.561 [...] Description No Information Available Referrals Refer to Dr Reason for Referral Status Appt Date [facility] Physical Therapy 24-year-old female wi th neck and low back pain. Please evaluate and treat. Thank you. Closed [address] [place] [address] [phone] [facility] 24-year-old female with hist ory of syncope, but recently symptoms are getting more frequent. In-house EKG is normal. Please evaluate and treat. Thank you. Sent [phone] [place] [address] [phone] [facility] 24-year-old female with h istory of recurrent syncope and dizziness, but recently symptoms are getting more frequent. Please evaluate and treat. Thank you. Patient Notified 06/11/2020 [address] [place] [address] [phone] [facility] Nutrition Services 24 year old with obesity and prediabe ronal A1c 6.4. Closed 03/31/2020 [address] [place] [address] [phone] [facility] Gastroenterology 24-year-old female with epilepsy physician patrick constipation. Please evaluate and treat as needed. Thank you. Patient Notified 04/13/2020 [address] [place] [address] [phone] [facility] Behavioral Health 24-year-old female with hist ory of depression. Please evaluate and treat as needed. Thank you. Closed 04/02/2020 [address] [place] [address] [phone] [facility] ENT 24-year-old female with pers istent ear infection. ?chronic suppurative otitis media with perforation.Please evaluate and treat as needed. Thank you. Closed 03/20/2020 826 [facility] [address] [place] [address] [phone]
--- OUTSIDE RECORDS SUMMARY | 2020-08-09 21:16 | CCD ---
Continuity of Care Document (CCD) Created on: 07/01/2020 Kaye Jha External Reference #: [id number] : [id number] Sex: Female Author Author Kaye JENKINS M.D. Organization Unknown Address [address] [place] [address] Phone [phone] Care Team Providers Care Water Pump Operator Name Role Phone Samaria Oleary M.D. AUTM [phone] Problems Description No Information Available Social History Type Date Description Comments Sex Unknown Allergies, Adverse Reactions, Alerts Description No Information Available Medications Description No Information Available Immunizations Description No Information Available Vital Signs Description No Information Available Results Description No Information Available Procedures Date Code Description Status 06/22/2020 92429 Magnetic Resonance Angiography N radha W/O Contrast Materials Completed 06/22/2020 33992 Magnetic Resonance Angiography N radha W/O Contrast Materials Completed 06/22/2020 67553 Magnetic Resonance Angiogtaphy H ead W/O Contrast Material(S) Completed 06/22/2020 84529 Magnetic Resonance Angiogtaphy H ead W/O Contrast Material(S) Completed 06/12/2020 14683 Sympathetic Skin Responses Compl eted 06/12/2020 09447 Sympathetic Skin Responses Compl eted 06/12/2020 24472 Test Autonomic Nervous System, C ardiovagal Innervation Completed 06/12/2020 77039 Test Autonomic Nervous System, C ardiovagal Innervation Completed Medical Devices Description No Information Available Encounters Type Date Location Provider Dx Diagnosis Office Visit 06/11/2020 3:00p [place] R55 Syncope and collapse R42 Dizziness and giddiness R25.8 Other abnormal involuntary m ovements I95.1 Orthostatic hypotension Assessments Date Code Description Provider 06/22/2020 R42 Dizziness and giddiness Yuval Belcher M.D. 06/22/2020 R42 Dizziness and giddiness MRI 06/12/2020 I95.1 Orthostatic hypotension Carol L adela, M.D. 06/12/2020 I95.1 Orthostatic hypotension Ans/VS 06/12/2020 R55 Syncope and collapse Carol griffiths M.D. 06/12/2020 R55 Syncope and collapse Ans/VS 06/11/2020 R55 Syncope and collapse Carol griffiths M.D. 06/11/2020 R42 Dizziness and giddiness Carol chapman M.D. 06/11/2020 R25.8 Other abnormal involuntary movem ents Carol Jenkins M.D. 06/11/2020 I95.1 Orthostatic hypotension Carol chapman M.D. Plan of Treatment Future Appointment(s):* 07/02/2020 8:30 am - Myles [facility]baCFred at [facility] * 08/14/2020 10:30 am - Inessa Bedoya P.A.-C. at [facility] * 08/04/2020 8:15 am - EEG at [facility] 07/02/2020 - Myles BarbaCFred* R55 Syncope and collapse * R42 Dizziness and giddiness Functional Status Description No Information Available Mental Status Description No Information Available Referrals Refer to Reason for Referral Status Appt Date Yuval Jenkins M.D. Created [facility] [address] [place] [address] [phone] Yuval Jenkins M.D. Created [facility] [address] [place] [address] [phone] Yuval Jenkins M.D. Created [facility] [address] [place] [address] [phone]
--- OUTSIDE RECORDS SUMMARY | 2020-08-09 21:16 | CCD | Continuity of Care Document ---
Author Author Kaye OLEARY MD Organization Unknown Address [address] [place] [address] Phone [phone] Care Team Providers Care Network Relay Tester Name Role Phone Samaria Oleary MD AUTM [phone] [facility] Behavioral Health AUTM [phone] [facility] Gastroenterology AUTM [phone] [place] ENT AUTM [phone] [facility] Nutrition Services AUTM [phone] [facility] AUTM [phone] [facility] AUTM [facility] Physical Therapy AUTM [phone] Problems Active Problems Provider Date Obesity Samaria [...] MD 05/15/2020 Vitamin D3 Ultra Potency 1.25mg (63106 Ut) Tablets 1 tablet once a week [...] H/L Range Note Laboratory test finding 06/11/2020 [facility] Aldolase <pending> CPK <pending> Xray 06/11/2020 [facility] [address] [place] [address] [phone] Knee Ap & Lat RT <pending> Xray 06/11/2020 [facility] [address] [place] [address] [phone] US Ext-Non Vascular RT Complete <pending> Laboratory test finding 05/15/2020 [facility] Magnesium Serum 2.0 mg/dL 1.7 - 2.2 1 Lyme Disease Antibodies 05/15/2020 [facility] Lyme IgG/IgM Ab <0.91 ISR 0.00-0.90 2 [...] BlotInterp. Negative 5 Laboratory test finding 05/15/2020 [facility] Glucose 90 mg/dL 65 - 110 Debby Ifa Negative 6 Sedimentation Rate 05/15/2020 [facility] Sed Rate 6 mm/hr 0 - 20 Sed Rate Reenter 6 Laboratory test finding 05/15/2020 [facility] Ra Quant <10 IU/mL 0 - 14 CPK 554 U/L High 30 - 170 Order 04/14/2020 In Office Inhouse EKG Given to Pcp Laboratory test finding 04/14/2020 [facility] Hgba1c 6.2 % High 4.4 - 6.1 7 Basic Metabolic Panel 04/14/2020 [facility] Basic Metabolic Pane (SEE NOTE) 8 [...] >60 mL/min 9 Comprehensive Metabolic Panel 03/04/2020 [facility] ospital Comprehensive Metabo (SEE NOTE) 10 Sodium [...] >60 mL/min 11 Laboratory test finding 03/04/2020 [facility] TSH Highly Sensitive 0.84 uIU/mL 0.47 - 5.01 Vitamin D (25-Hydroxy) 25 NG/ML 12 Vitamin B12 Serum 383 pg/mL 232 - 1245 Hgba1c 6.3 % High 4.4 - 6.1 13 Culture MRSA 03/04/2020 [facility] Culture MRSA (SEE NOTE) 14 CBC No Diff 03/04/2020 [facility] CBC No Diff (SEE NOTE) 15 [...] are those recommended by CDC/ASTPHLD. p23=Osp C, v35=tabmfrfpa Note: Sera from individuals with the following may cross react in the Lyme Line Blot assays: other spirochetal diseases (periodontal disease, leptospirosis, relapsing fever, yaws, and pinta); connective autoimmune (Rheumatoid Arthritis and Systemic Lupus Erythematosus and also individuals with Antinuclear Antibody); other infections ([place] Spotted Fever; Shayy-Garcia Virus, and Cytomegalovirus). 6 [...] COUNT Procedures Date Code Description Status 04/14/2020 20523 Admin Patient Focused Health Ris k Assessment Instrument Completed 04/14/2020 37150 Brief Emotional/Beha v Assessment W/ Scoring Doc Per Standard Inst Completed 04/14/2020 39263 Electrocardiogram Complete Compl eted Medical Devices Description [...] 1:00 pm - Samaria Oleary MD at [facility] 06/11/2020 - Samaria Oleary MD* M25.561 [...] to Reason for Referral Status Appt Date [facility] Physical Therapy 24-year-old female wi th neck and low back pain. Please evaluate and treat. Thank you. Closed [address] [place] [address] [phone] [facility] 24-year-old female with hist ory of syncope, but recently symptoms are getting more frequent. In-house EKG is normal. Please evaluate and treat. Thank you. Sent [id number] [place] [address] [phone] [facility] 24-year-old female with h istory of recurrent syncope and dizziness, but recently symptoms are getting more frequent. Please evaluate and treat. Thank you. Patient Notified 06/11/2020 [address] [place] [address] [phone] [facility] Nutrition Services 24 year old with obesity and prediabe ronal A1c 6.4. 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 Please evaluate and treat as needed. Thank you. Patient Notified 04/13/2020 [address] [place] [address] [phone] [facility] Behavioral Health 24-year-old female with hist ory of depression. Please evaluate and treat as needed. Thank you. Closed 04/02/2020 [address] [place] [address] [phone] [facility] ENT 24-year-old female with pers istent ear infection. ?chronic suppurative otitis media with perforation.Please evaluate and treat as needed. Thank you. Closed 03/20/2020 826 [facility] [address] [place], [place] [address] [phone]
--- OUTSIDE RECORDS SUMMARY | 2020-08-09 21:16 | CCD | Continuity of Care Document ---
Author Author Ans/Kaye JAMES Organization Unknown Address [address] [place] [address] Phone [phone] Care Team Providers Care Butter Fat Tester Name Role Phone Samaria Oleary M.D. [phone] Problems Description No Information Available Social History Type Date Description Comments Sex Unknown Allergies, Adverse Reactions, Alerts Description No Information Available Medications Description No Information Available Immunizations Description No Information Available Vital Signs Description No Information Available Results Description No Information Available Procedures Description No Information Available Medical Devices Description No Information Available Encounters Description No Information Available Assessments Description No Information Available Plan of Treatment Future Appointment(s):* 08/14/2020 10:30 am - Inessa Bedoya P.A.-C. at [facility] * 08/04/2020 8:15 am - EEG at [facility] Functional Status Description No Information Available Mental Status Description No Information Available Referrals Description No Information Available
--- OUTSIDE RECORDS SUMMARY | 2020-08-09 21:16 | CCD | Continuity of Care Document ---
Author Author TIMOTHYKentonKaye L Organization Unknown Address [address] [place] [address] Phone [phone] Care Team Providers Care Specimen Collector Name Role Phone Samaria Oleary M.D. AUTM [phone] Problems Description No Information Available Social History Type Date Description Comments Sex Unknown Allergies, Adverse Reactions, Alerts Description No Information Available Medications Description No Information Available Immunizations Description No Information Available Vital Signs Description No Information Available Results Description No Information Available Procedures Date Code Description Status 06/22/2020 34266 Magnetic Resonance Angiography N radha W/O Contrast Materials Completed 06/22/2020 37119 Magnetic Resonance Angiography N radha W/O Contrast Materials Completed 06/22/2020 24041 Magnetic Resonance Angiogtaphy H ead W/O Contrast Material(S) Completed 06/22/2020 33017 Magnetic Resonance Angiogtaphy H ead W/O Contrast Material(S) Completed 06/12/2020 36376 Sympathetic Skin Responses Compl eted 06/12/2020 78715 Sympathetic Skin Responses Compl eted 06/12/2020 79565 Test Autonomic Nervous System, C ardiovagal Innervation Completed 06/12/2020 62355 Test Autonomic Nervous System, C ardiovagal Innervation Completed Medical Devices Description No Information Available Encounters Description No Information Available Assessments Date Code Description Provider 06/22/2020 R42 Dizziness and giddiness Yuval Belcher M.D. 06/22/2020 R42 Dizziness and giddiness MRI 06/12/2020 I95.1 Orthostatic hypotension Carol chapman M.D. 06/12/2020 I95.1 Orthostatic hypotension Ans/VS 06/12/2020 R55 Syncope and collapse Carol griffiths M.D. 06/12/2020 R55 Syncope and collapse Ans/VS Plan of Treatment Future Appointment(s):* 08/14/2020 10:30 am - Inessa Bedoya P.A.-C. at [facility] * 08/04/2020 8:15 am - EEG at [facility] Functional Status Description No Information Available Mental Status Description No Information Available Referrals Refer to Reason for Referral Status Appt Date Yuval Jenkins M.D. Created [facility] [address] [place] [address] [phone] Yuval Jenkins M.D. Created [facility] [address] [place] [address] [phone] Yuval Jenkins M.D. Created [facility] [address] [place] [address] [phone]
--- OUTSIDE RECORDS SUMMARY | 2020-08-09 21:16 | CCD | Continuity of Care Document ---
Author Author Kaye OLEARY MD Organization Unknown Address [address] [place] [address] Phone [phone] Care Team Providers Care Budget Manager Name Role Phone Samaria Oleary MD AUTM [phone] [facility] Behavioral Health AUTM [phone] [facility] Gastroenterology AUTM [phone] [place]/[facility] ENT AUTM [phone] [facility] Nutrition Services AUTM [phone] [facility] AUTM [phone] [facility] AUTM [phone] [facility] Physical Therapy AUTM [phone] Problems Active Problems Provider Date Obesity Samaria [...] SIG Qnty Indications Ordering Provide r Date Magnesium 500mg Capsules 1 by mouth every day 30caps Samaria Oleary MD 05/15/2020 Vitamin D3 Ultra Potency 1.25mg (36810 Ut) Tablets 1 tablet once a week by mouth 12tajoanna ron MD 05/15/2020 Mirena (52 MG) 20mcg/24HR IUD after insert remove after 5 yr 1untootie Oleary MD 04/14/20 20 Citalopram Hydrobromide 20mg Table ts 1 tablet by mouth daily. 30tajoanna Oleary MD 12/2019 Glucometer Device test blood glucose three times daily 1units Samaria Oleary MD 04/14/20 20 Glucose Meter Test Strips Advanced Strips test glucose three times before meals 200units Maria Elena Oleary MD 04/14/2020 Lancets Ultra Fine Misc dispense a box of 100 lancets. check glucose three times daily 100units Maria Elena Oleary MD 04/14/2020 History Medications Amoxicillin/Clavulanate Potassium 875-125mg Tablets 1 by mouth twice a day 14tabs Samaria Oleary MD 05/07/2020 - 05/15/2020 No Active Medications Unknown - 03/04/2020 Citalopram Hydrobromide 10mg Table ts 1 tablet by mouth daily. 30tajoanna Oleary MD - 04/14/2020 Immunizations Description No Information Available Vital Signs Date Vital Result Comment 05/15/2020 1:12pm BP Systolic 128 mmHg BP Diastolic 78 mmHg Heart Rate 112 /min Body Temperature 97.9 F Respiratory Rate 16 /min O2 % BldC Oximetry 95 % Weight 220.38 lb Weight 99.962 kg Height 64 inches 5'4" BMI (Body Mass Index) 37.8 kg/m2 BSA (Body Surface Area) 2.04 m2 04/14/2020 2:00pm BP Systolic 120 mmHg BP Diastolic 78 mmHg Heart Rate 89 /min Body Temperature 98.2 F Respiratory Rate 16 /min O2 % BldC Oximetry 97 % Weight 220.00 lb Weight 99.792 kg Height 64 inches 5'4" BMI (Body Mass Index) 37.8 kg/m2 BSA (Body Surface Area) 2.04 m2 Results Test Acquired Date Facility Test Result H/L Range Note Laboratory test finding 05/15/2020 [facility] Magnesium Serum 2.0 mg/dL 1.7 - 2.2 1 Lyme Disease Antibodies 05/15/2020 [facility] Lyme IgG/IgM Ab <0.91 ISR 0.00-0.90 2 [...] BlotInterp. Negative 5 Laboratory test finding 05/15/2020 [facility] Glucose 90 mg/dL 65 - 110 Debby Ifa Negative 6 Sedimentation Rate 05/15/2020 [facility] Sed Rate 6 mm/hr 0 - 20 Sed Rate Reenter 6 Laboratory test finding 05/15/2020 [facility] Ra Quant <10 IU/mL 0 - 14 CPK 554 U/L High 30 - 170 Basic Metabolic Panel 04/14/2020 [facility] Basic Metabolic Pane (SEE NOTE) 7 Sodium 138 mEq/L 134 - 153 Potassium [...] GFR >60 mL/min Non-Aa GFR >60 mL/min 8 Laboratory test finding 04/14/2020 [facility] Hgba1c 6.2 % High 4.4 - 6.1 9 Order 04/14/2020 In Office Inhouse EKG Given to Pcp CBC No Diff 03/04/2020 [facility] CBC No Diff (SEE NOTE) 10 WBC 10.7 10^3/uL 4.2 - 11.0 RBC 4.86 10^6/uL 4.20 - 5.40 Hemoglobin 14.4 g/dL 12.0 - 16.0 Hematocrit 42.5 % 37.0 - 47.0 MCV 87.4 fL 81.0 - 101 MCH 29.6 pg 27.0 - 34.0 MCHC 33.9 g/dL 31.0 - 36.0 RDW 12.9 % 11.5 - 14.5 Platelets 259 10^3/uL 150 - 450 MPV 10.9 fL High 7.4 - 10.4 Comprehensive Metabolic Panel 03/04/2020 [facility] ospital Comprehensive Metabo (SEE NOTE) 11 Sodium 135 mEq/L 134 - 153 Potassium [...] >60 mL/min Afr Amer GFR >60 mL/min 12 Laboratory test finding 03/04/2020 [facility] l TSH Highly Sensitive 0.84 uIU/mL 0.47 - 5.01 Vitamin D (25-Hydroxy) 25 NG/ML 13 Vitamin B12 Serum 383 pg/mL 232 - 1245 Hgba1c 6.3 % High 4.4 - 6.1 14 Culture MRSA 03/04/2020 [facility] Culture MRSA (SEE NOTE) 15 1 Is patient fasting? N 2 Negative [...] are those recommended by CDC/ASTPHLD. p23=Osp C, y57=tgfncasin Note: Sera from individuals with the following may cross react in the Lyme Line Blot assays: other spirochetal diseases (periodontal disease, leptospirosis, relapsing fever, yaws, and pinta); connective autoimmune (Rheumatoid Arthritis and Systemic Lupus Erythematosus and also individuals with Antinuclear Antibody); other infections ([place] Spotted Fever; Shayy-Garcia Virus, and Cytomegalovirus). 6 Negative <1:80 Borderline 1:80 Positive >1:80 7 BASIC METABOLIC PANEL 8 Male GFR Interprentation 20-49 yrs >60 mL/min Normal 50-59 yrs >56 mL/min Normal 60-69 yrs >49 mL/min Normal 70-79yrs >42 mL/min Normal 80 and above >35 mL/min Normal Female GFR Interpretation 20-39 yrs >60 mL/min Normal 40-49 yrs >58 mL/min Normal 50-59 yrs >51 mL/min Normal 60-69 yrs >45 mL/min Normal 70-79 yrs >39 mL/min Normal 80 and above >32 mL/min Normal 9 {A1] {HB] 10 COMPLETE BLOOD COUNT [address] COMPREHENSIVE METABOLIC PANE L 12 Male GFR Interprentation 20-49 yrs >60 mL/min Normal 50-59 yrs >56 mL/min Normal 60-69 yrs >49 mL/min Normal 70-79yrs >42 mL/min Normal 80 and above >35 mL/min Normal Female GFR Interpretation 20-39 yrs >60 mL/min Normal 40-49 yrs >58 mL/min Normal 50-59 yrs >51 mL/min Normal 60-69 yrs >45 mL/min Normal 70-79 yrs >39 mL/min Normal 80 and above >32 mL/min Normal 13 VITAMIN-D(25HYDROXY) Deficiency: <=20 ng/ml Insufficiency: 21-29 ng/ml Preferred level: => 30 ng/ml 14 {A1] {HB] 15 _CULTURE MRSA SCREENING_ SEE SEPARATE REFERENCE LAB REPORT Procedures Date Code Description Status 04/14/2020 72127 Admin Patient Focused Health Ris k Assessment Instrument Completed 04/14/2020 07028 Brief Emotional/Beha v Assessment W/ Scoring Doc Per Standard Inst Completed 04/14/2020 55929 Electrocardiogram Complete Compl eted Medical Devices Description No Information Available Encounters Description No Information Available Assessments Date Code Description Provider 05/15/2020 M79.10 Myalgia, unspecified site Samaria wright [...] 1:00 pm - Samaria Oleary MD at [facility] Functional Status Description No Information Available Mental Status Description No Information Available Referrals Refer to Reason for Referral Status Appt Date [facility] Physical Therapy 24-year-old female wi th neck and low back pain. Please evaluate and treat. Thank you. Closed [address] [place] [address] [phone] [facility] 24-year-old female with hist ory of syncope, but recently symptoms are getting more frequent. In-house EKG is normal. Please evaluate and treat. Thank you. Sent [id number] [place] [address] [phone] [facility] 24-year-old female with h istory of recurrent syncope and dizziness, but recently symptoms are getting more frequent. Please evaluate and treat. Thank you. Patient Notified 06/11/2020 [address] [place] [address] [phone] [facility] Nutrition Services 24 year old with obesity and prediabe ronal A1c 6.4. Closed 03/31/2020 [address] [place], [place] [address] [phone] 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 Please evaluate and treat as needed. Thank you. Patient Notified 04/13/2020 [address] [place] [address] [phone] [facility] Behavioral Health 24-year-old female with hist ory of depression. Please evaluate and treat as needed. Thank you. Closed 04/02/2020 [address] [place], [place] [address] [phone] [facility] ENT 24-year-old female with pers istent ear infection. ?chronic suppurative otitis media with perforation.Please evaluate and treat as needed. Thank you. Closed 03/20/2020 826 [facility] [address] [place], [place] [address] [phone]
--- OUTSIDE RECORDS SUMMARY | 2020-08-09 21:16 | CCD | Continuity of Care Document ---
Author Author Kaye AGUIRRE Organization Unknown Address [address] [place] [address] Phone [phone] Care Team Providers Care Lasting Room Supervisor Name Role Phone Samaria Oleary M.D. AUTM [phone] Problems Description No Information Available Social History Type Date Description Comments Sex Unknown Allergies, Adverse Reactions, Alerts Description No Information Available Medications Description No Information Available Immunizations Description No Information Available Vital Signs Description No Information Available Results Description No Information Available Procedures Date Code Description Status 06/12/2020 66862 Sympathetic Skin Responses Compl eted 06/12/2020 94611 Sympathetic Skin Responses Compl eted 06/12/2020 15865 Test Autonomic Nervous System, C ardiovagal Innervation Completed 06/12/2020 84673 Test Autonomic Nervous System, C ardiovagal Innervation Completed Medical Devices Description No Information Available Encounters Description No Information Available Assessments Date Code Description Provider 06/12/2020 I95.1 Orthostatic hypotension Carol chapman M.D. 06/12/2020 I95.1 Orthostatic hypotension Ans/VS 06/12/2020 R55 Syncope and collapse Carol griffiths M.D. 06/12/2020 R55 Syncope and collapse Ans/VS Plan of Treatment Future Appointment(s):* 08/14/2020 10:30 am - Inessa Bedoya P.A.-C. at [facility] * 08/04/2020 8:15 am - EEG at [facility] Functional Status Description No Information Available Mental Status Description No Information Available Referrals Refer to Reason for Referral Status Appt Date Yuval Jenkins M.D. Created [facility] [address] [place] [address] [phone]
--- OUTSIDE RECORDS SUMMARY | 2020-08-09 21:16 | CCD | Continuity of Care Document ---
Author Author Kaye OLEARY MD Organization Unknown Address [address] [place] [address] Phone [phone] Care Team Providers Care Work Manager Name Role Phone Samaria Oleary MD AUTM [phone] [facility] Behavioral Health AUTM [phone] [facility] Gastroenterology AUTM [phone] [facility] ENT AUTM [phone] [facility] Nutrition Services AUTM [phone] [facility] [phone] [facility] AUTM [facility] Physical [facility] AUTM [phone] Problems Active Problems Provider Date Obesity Samaria [...] SIG Qnty Indications Ordering Provide r Date Vitamin D 2000Unit Tablets 1 tablet by mouth daily 90angelia Oleary MD 07/23/2020 Magnesium 500mg Capsules 1 by mouth every day 30capperico Oleary MD 05/15/2020 Mirena (52 MG) 20mcg/24HR IUD [...] Maria Elena Oleary MD 04/14/2020 History Medications Prednisone 10mg Tablets 3 tablets by mouth daily for 2 days. then 2 tablets daily for 2 days. then 1 tablet daily for 2 days. 12angelia Oleary MD 06/11/2020 - 07/23/2020 Vitamin D3 Ultra Potency 1.25mg (67159 Ut) Tablets 1 tablet once a week by mouth 12tajoanna ron MD 05/15/2020 - 07/23/2020 Amoxicillin/Clavulanate Potassium 875-125mg Tablets 1 by mouth twice a day 14angelia Oleary MD 05/07/2020 - 05/15/2020 No Active Medications Unknown - 03/04/2020 Citalopram Hydrobromide 10mg Table ts 1 tablet by mouth daily. 30angelia Oleary MD - 04/14/2020 Immunizations Description No Information Available Vital Signs Date Vital Result Comment 07/23/2020 9:47am BP Systolic 110 mmHg BP Diastolic 82 mmHg Heart Rate 104 /min Body Temperature 96.8 F Respiratory Rate 16 /min O2 % BldC Oximetry 98 % Weight 221.38 lb Weight 100.416 kg Height 64 inches 5'4" BMI (Body Mass Index) 38.0 kg/m2 BSA (Body Surface Area) 2.04 m2 06/11/2020 1:03pm BP Systolic 122 mmHg BP Diastolic 78 mmHg Heart Rate 95 /min Body Temperature 97.6 F Respiratory Rate 16 /min O2 % BldC Oximetry 98 % Weight 219.12 lb Weight 99.395 kg Height 64 inches 5'4" BMI (Body Mass Index) 37.6 kg/m2 BSA (Body Surface Area) 2.03 m2 Results Test Acquired Date Facility Test Result H/L Range Note Laboratory test finding 07/23/2020 [facility] CPK 146 U/L 30 - 170 Xray 07/23/2020 [facility] [address] [place] [address] [phone] Spine LS Ap & Lat <pending> Laboratory test finding 06/11/2020 [facility] Aldolase 6.2 U/L 3.3-10.3 CPK 175 U/L High 30 - 170 Xray 06/11/2020 [facility] [address] [place] [address] [phone] Knee Ap & Lat RT <pending> Xray 06/11/2020 [facility] [address] [place] [address] [phone] US Ext-Non Vascular RT Complete <pending> Laboratory test finding 05/15/2020 [facility] Magnesium Serum 2.0 mg/dL 1.7 - 2.2 1 Lyme Disease Antibodies 05/15/2020 [facility] Lyme IgG/IgM Ab <0.91 ISR 0.00-0.90 2 [...] Negative 5 Laboratory test finding 05/15/2020 [facility] Glucose 90 mg/dL 65 - 110 Debby Ifa Negative 6 Sedimentation Rate 05/15/2020 [facility] Sed Rate 6 mm/hr 0 - 20 Sed Rate Reenter 6 Laboratory test finding 05/15/2020 [facility] Ra Quant <10 IU/mL 0 - 14 CPK 554 U/L High 30 - 170 Order 04/14/2020 In Office Inhouse EKG Given to Pcp Laboratory test finding 04/14/2020 [facility] Hgba1c 6.2 % High 4.4 - 6.1 7 Basic Metabolic Panel 04/14/2020 [facility] Basic Metabolic Pane (SEE NOTE) 8 Sodium [...] >60 mL/min Non-Aa GFR >60 mL/min 9 Laboratory test finding 03/04/2020 [facility] TSH Highly Sensitive 0.84 uIU/mL 0.47 - 5.01 Vitamin D (25-Hydroxy) 25 NG/ML 10 Vitamin B12 Serum 383 pg/mL 232 - 1245 Hgba1c 6.3 % High 4.4 - 6.1 11 Culture MRSA 03/04/2020 [facility] Culture MRSA (SEE NOTE) 12 Comprehensive Metabolic Panel 03/04/2020 [facility] Comprehensive Metabo (SEE NOTE) 13 Sodium 135 mEq/L 134 - 153 Potassium [...] >60 mL/min Afr Amer GFR >60 mL/min 14 CBC No Diff 03/04/2020 [facility] CBC No Diff (SEE NOTE) 15 WBC [...] are those recommended by CDC/ASTPHLD. p23=Osp C, p70=isdzsxuvj Note: Sera from individuals with the following may cross react in the Lyme Line Blot assays: other spirochetal diseases (periodontal disease, leptospirosis, relapsing fever, yaws, and pinta); connective autoimmune (Rheumatoid Arthritis and Systemic Lupus Erythematosus and also individuals with Antinuclear Antibody); other infections ([place]ale Spotted Fever; Shayy-Garcia Virus, and Cytomegalovirus). 6 [...] 80 and above >32 mL/min Normal 10 VITAMIN-D(25HYDROXY) Deficiency: <=20 ng/ml Insufficiency: 21-29 ng/ml Preferred level: => 30 ng/ml 11 {A1] {HB] 12 _CULTURE MRSA SCREENING_ SEE SEPARATE REFERENCE LAB REPORT 13 COMPREHENSIVE METABOLIC PANE L 14 Male GFR Interprentation 20-49 yrs >60 mL/min Normal 50-59 yrs >56 mL/min Normal 60-69 yrs >49 mL/min Normal 70-79yrs >42 mL/min Normal 80 and above >35 mL/min Normal Female GFR Interpretation 20-39 yrs >60 mL/min Normal 40-49 yrs >58 mL/min Normal 50-59 yrs >51 mL/min Normal 60-69 yrs >45 mL/min Normal 70-79 yrs >39 mL/min Normal 80 and above >32 mL/min Normal 15 COMPLETE BLOOD COUNT Procedures Date Code Description Status 04/14/2020 35013 Admin Patient Focused Health Ris k Assessment Instrument Completed 04/14/2020 00975 Brief Emotional/Beha v Assessment W/ Scoring Doc Per Standard Inst Completed 04/14/2020 99418 Electrocardiogram Complete Compl eted Medical Devices Description No Information Available Encounters Description No Information Available Assessments Date Code Description Provider 07/23/2020 M54.5 Low back pain Samaria collier MD 07/23/2020 M79.10 Myalgia, unspecified site Samaria wright MD 07/23/2020 R55 Syncope and collapse Samaria ron MD 06/11/2020 M25.561 Pain in right knee Samaria [...] 1:00 pm - Samaria Oleary MD at [facility] Functional Status Description No Information Available Mental Status Description No Information Available Referrals Refer to Reason for Referral Status Appt Date [facility] Physical Therapy 24-year-old female wi th neck and low back pain. Please evaluate and treat. Thank you. Closed [address] [place] [address] [phone] [facility] [place] 24-year-old female with hist ory of syncope, but recently symptoms are getting more frequent. In-house EKG is normal. Please evaluate and treat. Thank you. Closed [address] [place] [address] [phone] [facility] 24-year-old female with h istory of recurrent syncope and dizziness, but recently symptoms are getting more frequent. Please evaluate and treat. Thank you. Closed 06/11/2020 [address] [place] [address] [phone] [facility] Nutrition Services 24 year old with obesity and prediabe ronal A1c 6.4. 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 Please evaluate and treat as needed. Thank you. Patient Notified 04/13/2020 [address] [place], [place] [id number] [phone] [facility] Behavioral Health 24-year-old female with hist ory of depression. Please evaluate and treat as needed. Thank you. Closed 04/02/2020 [address] [place] [address] [phone] [facility] ENT 24-year-old female with pers istent ear infection. ?chronic suppurative otitis media with perforation.Please evaluate and treat as needed. Thank you. Closed 03/20/2020 [address] [facility] [address] [place], [place] [id number] [phone]
--- OUTSIDE RECORDS SUMMARY | 2020-08-09 21:17 | CCD ---
Author Author [facility] Organization [facility] Address Unknown Phone Unavailable Care Team Providers Care [place] Contractor Name Role Phone ASHU TREVINO MD Unavailable Unavailable ASHU TREVINO MD Unavailable Unavailable ASHU TREVINO MD Unavailable Unavailable ASHU TREVINO MD Unavailable Unavailable ASHU TREVINO MD Unavailable Unavailable ASHU TREVINO MD Unavailable Unavailable ASHU TREVINO MD Unavailable Unavailable ASHU TREVINO MD Unavailable Unavailable ASHU TREVINO MD Unavailable Unavailable ASHU TREVINO MD Unavailable Unavailable ASHU TREVINO MD Unavailable Unavailable URIEL, ASHU MD Unavailable Unavailable URIEL, ASHU MD Unavailable Unavailable URIEL, ASHU MD Unavailable Unavailable URIEL, ASHU MD Unavailable Unavailable URIEL, ASHU MD Unavailable Unavailable URIEL, ASHU MD Unavailable Unavailable URIEL, ASHU MD Unavailable Unavailable URIEL, ASHU MD Unavailable Unavailable URIEL, ASHU MD Unavailable Unavailable URIEL, ASHU MD Unavailable Unavailable URIEL, ASHU MD Unavailable Unavailable URIEL, ASHU MD Unavailable Unavailable URIEL, ASHU MD Unavailable Unavailable URIEL, ASHU MD Unavailable Unavailable URIEL, ASHU MD Unavailable Unavailable URIEL, ASHU MD Unavailable Unavailable URIEL, ASHU MD Unavailable Unavailable URIEL, ASHU MD Unavailable Unavailable URIEL, ASHU MD Unavailable Unavailable URIEL, ASHU MD Unavailable Unavailable URIEL, ASHU MD Unavailable Unavailable URIEL, ASHU MD Unavailable Unavailable URIEL, ASHU MD Unavailable Unavailable URIEL, ASHU MD Unavailable Unavailable URIEL, ASHU MD Unavailable Unavailable URIEL, ASHU MD Unavailable Unavailable URIEL, ASHU MD Unavailable Unavailable URIEL, ASHU MD Unavailable Unavailable URIEL, ASHU MD Unavailable Unavailable Kamlesh Menjivartech Unavailable Unavailable WilburkaPanchojtech Unavailable Unavailable WilburkaPanchojtech Unavailable Unavailable Wilburka Vojtech Unavailable Unavailable WilburkaPanchojtech Unavailable Unavailable Pancho Menjivarjtech Unavailable Unavailable WilburkaPanchojtech Unavailable Unavailable WilburkaPanchojtech Unavailable Unavailable SlejohnniekaPanchojtech Unavailable Unavailable Slejohnnieka Vojtech Unavailable Unavailable SlejohnniekaPanchojtech Unavailable Unavailable WilburkaPanchojtech Unavailable Unavailable SlejohnniekaPanchojtech Unavailable Unavailable Slejohnnieka Vojtech Unavailable Unavailable Slezka Vojtech Unavailable Unavailable Slezka Vojtech Unavailable Unavailable Slezka Vojtech Unavailable Unavailable SlezkaPanchojtech Unavailable Unavailable WilburkaPanchojtech Unavailable Unavailable Slejohnnieka Vojtech Unavailable Unavailable Wilburka Vojtech Unavailable Unavailable Slezka Vojtech Unavailable Unavailable Slezka Vojtech Unavailable Unavailable Slezka Vojtech Unavailable Unavailable Slejohnnieka Vojtech Unavailable Unavailable WilburkaPanchojtech Unavailable Unavailable SlezkaPanchojtech Unavailable Unavailable Slezka Vojtech MD Unavailable Unavailable Diamond Menjivar MD Unavailable Unavailable Diamond Menjivar MD Unavailable Unavailable Diamond Menjivar MD Unavailable Unavailable Diamond Menjivar MD Unavailable Unavailable Diamond Menjivar MD Unavailable Unavailable Diamond Menjivar MD Unavailable Unavailable Diamond Menjivar MD Unavailable Unavailable Diamond Menjivar MD Unavailable Unavailable Diamond Menjivar MD Unavailable Unavailable Diamond Menjivar MD Unavailable Unavailable Diamond Menjivar MD Unavailable Unavailable Diamond Menjivar MD Unavailable Unavailable Diamond Menjivar MD Unavailable Unavailable Diamond Menjivar MD Unavailable Unavailable Diamond Menjivar MD Unavailable Unavailable Diamond Menjivar MD Unavailable Unavailable Diamond Menjivar MD Unavailable Unavailable Diamond Menjivar MD Unavailable Unavailable Diamond Menjivar MD Unavailable Unavailable Diamond Menjivar MD Unavailable Unavailable Diamond Menjivar MD Unavailable Unavailable Diamond Menjivar MD Unavailable Unavailable Diamond Menjivar MD Unavailable Unavailable Diamond Menjivar MD Unavailable Unavailable Diamond Menjivar MD Unavailable Unavailable Diamond Menjivar MD Unavailable Unavailable Diamond Menjivar MD Unavailable Unavailable Diamond Menjivar MD Unavailable Unavailable Diamond Menjivar MD Unavailable Unavailable Diamond Menjivar MD Unavailable Unavailable TURRIN, ELSY Unavailable Unavailable TURRIN, ELSY Unavailable Unavailable TURRIN, ELSY Unavailable Unavailable TURRIN, ELSY Unavailable Unavailable Mamta F Samaria MARR Unavailable Unavailable Jimumpuradulce F Samaria MARR Unavailable Unavailable Ajnumpuradulce F Samaria MARR Unavailable Unavailable Ajnumpuradulce F Samaria MARR Unavailable Unavailable Ajnumpuradulce F Samaria MARR Unavailable Unavailable Ajnumpuradulce F Samaria MARR Unavailable Unavailable Ajnumpuradulce F Samaria MARR Unavailable Unavailable Ajnumpuradulce F Samaria MARR Unavailable Unavailable Ajnumpuradulce F Samaria MARR Unavailable Unavailable Ajnumpuradulce F Samaria MARR Unavailable Unavailable Ajnumpuradulce, F Samaria MARR Unavailable Unavailable Ajnumpuradulce F Samaria MARR Unavailable Unavailable Ajnumpuradulce F Samaria MARR Unavailable Unavailable Kunnumpurath, F Samaria MD Unavailable Unavailable Kunnumpurath, F Samaria MD Unavailable Unavailable Kunnumpurath, F Samaria MD Unavailable Unavailable Kunnumpurath, F Samaria MD Unavailable Unavailable Kunnumpurath, F Samaria MD Unavailable Unavailable Kunnumpurath, F Samaria MD Unavailable Unavailable Kunnumpurath, F Samaria MD Unavailable Unavailable Kunnumpurath, F Samaria MD Unavailable Unavailable Kunnumpurath, F Samaria MD Unavailable Unavailable Kunnumpurath, F Samaria MD Unavailable Unavailable Kunnumpurath, F Samaria MD Unavailable Unavailable Kunnumpurath, F Samaria MD Unavailable Unavailable Kunnumpurath, F Samaria MD Unavailable Unavailable Kunnumpurath, F Samaria MD Unavailable Unavailable Kunnumpurath, F Samaria MD Unavailable Unavailable Kunnumpurath, F Samaria MD Unavailable Unavailable Kunnumpurath, F Samaria MD Unavailable Unavailable Kunnumpurath, F Samaria MD Unavailable Unavailable Kunnumpurath, F Samaria MD Unavailable Unavailable Kunnumpurath, F Samaria MD Unavailable Unavailable Kunnumpurath, F Samaria MD Unavailable Unavailable Kunnumpurath, F Samaria MD Unavailable Unavailable Kunnumpurath, F Samaria MD Unavailable Unavailable Kunnumpurath, F Samaria MD Unavailable Unavailable Kunnumpurath, F Samaria MD Unavailable Unavailable Raines, Naz Adair PA Unavailable Unavailable Raines, Naz Adair PA Unavailable Unavailable Raines, Naz Adair PA Unavailable Unavailable Raines, Naz Adair PA Unavailable Unavailable RainesNaz PA Unavailable Unavailable RainesNaz PA Unavailable Unavailable Raines, Naz Mana PA Unavailable Unavailable Raines, Naz Gamezlyn PA Unavailable Unavailable Raines, Naz Mana PA Unavailable Unavailable Raines, Naz Mana PA Unavailable Unavailable Kunnumpurath, F Samaria MD Unavailable Unavailable Kunnumpurath, F Samaria MD Unavailable Unavailable Kunnumpurath, F Samaria MD Unavailable Unavailable Kunnumpurath, F Samaria MD Unavailable Unavailable Kunnumpurath, F Samaria MD Unavailable Unavailable Kunnumpurath, F Samaria MD Unavailable Unavailable Kunnumpurath, F Samaria MD Unavailable Unavailable Kunnumpurath, F Samaria MD Unavailable Unavailable Kunnumpurath, F Samaria MD Unavailable Unavailable Kunnumpurath, F Samaria MD Unavailable Unavailable Kunnumpurath, F Samaria MD Unavailable Unavailable Kunnumpurath, F Samaria MD Unavailable Unavailable Kunnumpurath, F Samaria MD Unavailable Unavailable Kunnumpurath, F Samaria MD Unavailable Unavailable Kunnumpurath, F Samaria MD Unavailable Unavailable Kunnumpurath, F Samaria MD Unavailable Unavailable Kunnumpurath, F Samaria MD Unavailable Unavailable Kunnumpurath, F Samaria MD Unavailable Unavailable Kunnumpurath, F Samaria MD Unavailable Unavailable Kunnumpurath, F Samaria MD Unavailable Unavailable Kunnumpurath, F Samaria MD Unavailable Unavailable Kunnumpurath, F Samaria MD Unavailable Unavailable Kunnumpurath, F Samaria MD Unavailable Unavailable Kunnumpurath, F Samaria MD Unavailable Unavailable Kunnumpurath, F Samaria MD Unavailable Unavailable Kunnumpurath, F Samaria MD Unavailable Unavailable Kunnumpurath, F Samaria MD Unavailable Unavailable Kunnumpurath, F Samaria MD Unavailable Unavailable Kunnumpurath, F Samaria MD Unavailable Unavailable Kunnumpurath, F Samaria MD Unavailable Unavailable Kunnumpurath, F Samaria MD Unavailable Unavailable Kunnumpurath, F Samaria MD Unavailable Unavailable Kunnumpurath, F Samaria MD Unavailable Unavailable Kunnumpurath, F Samaria MD Unavailable Unavailable Kunnumpurath, F Samaria MD Unavailable Unavailable Kunnumpurath, F Samaria MD Unavailable Unavailable Kunnumpurath, F Samaria MD Unavailable Unavailable Kunnumpurath, F Samaria MD Unavailable Unavailable GoncalvesSihla ruiz MD Unavailable Unavailable GoncalvesShila ruiz MD Unavailable Unavailable GoncalvesShila ruiz MD Unavailable Unavailable GoncalvesShila ruiz MD Unavailable Unavailable GoncalvesShila ruiz MD Unavailable Unavailable GoncalvesShila ruiz MD Unavailable Unavailable GoncalvesShila ruiz MD Unavailable Unavailable GoncalvesShila ruiz MD Unavailable Unavailable GoncalvesShila ruiz MD Unavailable Unavailable GoncalvesShila ruiz MD Unavailable Unavailable Shila Goncalves MD Unavailable Unavailable GoncalvesShila ruiz MD Unavailable Unavailable GoncalvesShila ruiz MD Unavailable Unavailable GoncalvesShila ruiz MD Unavailable Unavailable GoncalvesShila ruiz MD Unavailable Unavailable Goncalves, L Vincent MD Unavailable Unavailable Goncalves, L Vincent MD Unavailable Unavailable Goncalves, L Vincent MD Unavailable Unavailable Goncalves, L Vincent MD Unavailable Unavailable Goncalves, L Vincent MD Unavailable Unavailable Goncalves, L Vincent MD Unavailable Unavailable Goncalves, L Vincent MD Unavailable Unavailable Goncalves, L Vincent MD Unavailable Unavailable Goncalves, L Vincent MD Unavailable Unavailable Goncalves, L Vincent MD Unavailable Unavailable Goncalves, L Vincent MD Unavailable Unavailable Goncalves, L Vincent MD Unavailable Unavailable Goncalves, L Vincent MD Unavailable Unavailable Goncalves, L Vincent MD Unavailable Unavailable Goncalves, L Vincent MD Unavailable Unavailable Goncalves, L Vincent MD Unavailable Unavailable Goncalves, L Vincent MD Unavailable Unavailable Goncalves, L Vincent MD Unavailable Unavailable Goncalves, L Vincent MD Unavailable Unavailable Goncalves, L Vincent MD Unavailable Unavailable Goncalves, L Vincent MD Unavailable Unavailable Goncalves, L Vincent MD Unavailable Unavailable Goncalves, L Vincent MD Unavailable Unavailable Goncalves, L Vincent MD Unavailable Unavailable Goncalves, L Vinecnt MD Unavailable Unavailable Goncalves, L Vincent MD Unavailable Unavailable Goncalves, L Vincent MD Unavailable Unavailable Goncalves, L Vincent MD Unavailable Unavailable Goncalves, L Vincent MD Unavailable Unavailable Goncalves, L Vincent MD Unavailable Unavailable Goncalves, L Vincent MD Unavailable Unavailable Goncalves, L Vincent MD Unavailable Unavailable NO, PCP Unavailable Unavailable Re-disclosure Warning The records that you are about to access may contain information from federally-assisted alcohol or drug abuse programs. If such information is present, then the following federally mandated warning applies: This information has been disclosed to you from records protected by federal confidentiality rules (42 CFR part 2). The federal rules prohibit you from making any further disclosure of this information unless further disclosure is expressly permitted by the written consent of the person to whom it pertains or as otherwise permitted by 42 CFR part 2. A general authorization for the release of medical or other information is NOT sufficient for this purpose. The Federal rules restrict any use of the information to criminally investigate or prosecute any alcohol or drug abuse patient.The records that you are about to access may contain highly sensitive health information, the redisclosure of which is protected by Article 27-F of the [facility] Public Health law. If you continue you may have access to information: Regarding HIV / AIDS; Provided by facilities licensed or operated by the [facility] Office of Mental Health; or Provided by the [facility] Office for People With Developmental Disabilities. If such information is present, then the following [facility] mandated warning applies: This information has been disclosed to you from confidential records which are protected by state law. State law prohibits you from making any further disclosure of this information without the specific written consent of the person to whom it pertains, or as otherwise permitted by law. Any unauthorized further disclosure in violation of state law may result in a fine or long term sentence or both. A general authorization for the release of medical or other information is NOT sufficient authorization for further disc losure. Family History Family Member Name Family Member Gender Family Member Status Date o f Status Description Data Source(s) Unknown Unknown Problem [facility] ([facility] Unknown Unknown Problem [facility] Encounters Encounter Providers Location Date Indications Data Source(s ) Outpatient Attender: Samaria Oleary MDConsultant: PCP NO 07/23/2020 09:38:00 AM EST - 07/23/2020 09:38:00 AM [facility] Outpatient Referrer: Diamond MARTÍNEZCT-[email or web address].SYR 06/10 10:47:26 AM [facility] Outpatient Attender: Diamond Menjivar MDConsultant: Mic MARTÍNEZSRINIVAS-[email or web address].SRINIVAS 06/23/2020 03:35:41 PM EST - 07/01/2020 10:57:17 AM [facility] Outpatient Attender: Samaria Oleary MDConsultant: PCP NO 06/17/2020 12:49:15 PM EST - 06/18/2020 12:43:00 PM [facility] Patient discharged. Outpatient Attender: ASHU TREVINO MD Main office - [facility] 06/11/2020 02:00:00 PM EST [facility] ([facility] ) Outpatient Attender: Samaria Oleary MDConsultant: PCP NO 06/11/2020 12:57:00 PM EST - 06/11/2020 12:57:00 PM [facility] Outpatient Attender: Samaria Oleary MDConsultant: PCP NO 05/15/2020 01:05:00 PM EST - 05/15/2020 01:05:00 PM [facility] Outpatient Attender: Samaria Oleary MD Family Practice 1 07/15/2019 12:00:00 PM EST [facility] ([facility] Outpatient Attender: Samaria Oleary MDConsultant: PCP NO 05/05/2020 09:04:00 AM EDT - 05/05/2020 10:04:00 AM EDT [facility] Patient discharged. Outpatient Attender: Samaria Oleary MDConsultant: PCP NO 04/28/2020 02:29:50 PM EDT - 04/29/2020 09:03:00 AM EDT [facility] Patient discharged. Outpatient Attender: Samaria Oleary MDConsultant: PCP NO 04/20/2020 11:20:00 AM EDT - 04/20/2020 12:20:00 PM EDT [facility] Outpatient Attender: Samaria Oleary MD Family Practice 1 02:00:00 PM EDT [facility] ([facility] Outpatient Attender: Samaria Oleary MDConsultant: PCP NO 04/14/2020 01:46:00 PM EDT - 04/14/2020 01:46:00 PM EDT [facility] Outpatient Attender: Vincent Goncalves MD Physical Therapy 03/09/2020 1 0:15:00 AM EDT [facility] ([facility]) Outpatient Attender: Samaria Oleary MD Family Practice 0 03/04/2020 01:20:00 PM EDT [facility] ([facility] Outpatient Attender: Samaria Oleary MDConsultant: PCP NO 03/04/2020 01:13:00 PM EDT - 03/04/2020 01:13:00 PM EDT [facility] Emergency Attender: ELSY JUAREZConsultant: PCP NO 02/19/2020 08:18:00 PM EDT - 02/19/2020 10:13:[facility] Attender: Mana rey 02/14/2020 03:00:00 PM EDT [facility] ([facility]) Outpatient Attender: Vincent Goncalves MD Physical Therapy 01/23/2020 1 0:00:00 AM EDT [facility] ([facility]) Medications Medication Brand Name Start Date Product Form Dose Route Admi nistrative Instructions Pharmacy Instructions Status Indications Reaction Description Data Source(s) 50 mcg (2,000 unit) 07/24/2020 12:00:00 AM EST tablet 30 TAKE ONE TABLET BY MOUTH EVERY DAY TAKE ONE TABLET BY MOUTH EVERY DAY SOLD: 08/06/2020 [facility] Citalopram 20 MG Oral Tablet CITALOPRAM HYDROBROMIDE 07/24/2020 12:00:00 AM EST tablet 30 TAKE ONE TABLET BY MOUTH EVERY D AY TAKE ONE TABLET BY MOUTH EVERY DAY SOLD: 08/06/2020 [facility] Cholecalciferol 2000 UNT Oral Tablet Vitamin D 07/23/2020 12:00:00 A M EST ORAL active [facility] ([facility]) Citalopram 20 MG Oral Tablet citalopram (CELEXA) 20 MG tablet citalopram (CELEXA) 20 MG tablet 06/12/2020 12:00:00 AM EST 20 mg Oral active Take 20 mg by mouth daily [facility] Prednisone 10 MG Oral Tablet Prednisone 06/11/2020 12:00:00 AM EST ORAL completed [facility] ([facility]) 10 mg 06/11/2020 12:00:00 AM EST tablet 12 TAKE 3 TABLETS BY MOUTH EVERY DAY FOR 2 DAYS THEN 2 TABLETS DAILY FOR 2 DAYS THEN 1 TABLET DAILY FOR 2 DAYS TAKE 3 TABLETS BY MOUTH EVERY DAY FOR 2 DAYS THEN 2 TABLETS DAILY FOR 2 DAYS THEN 1 TABLET DAILY FOR 2 DAYS SOLD: 06/11/2020 [facility] Magnesium Oxide 500 MG Oral Tablet Magnesium Oxide 500 MG TABS Magnesium Oxide 500 MG TABS 05/16/2020 12:00:00 AM EST 1 {tbl} Oral activ e Take 1 tablet by mouth daily [facility] Cholecalciferol 91362 UNT Oral Capsule D3-50 1.25 MG ( 15141 UT) capsule D3-50 1.25 MG (98232 UT) capsule 05/16/2020 12:00:00 AM EST active TAKE ONE CAPSULE BY MOUTH ONCE A WEEK [facility] 500 mg 05/16/2020 12:00:00 AM EST tablet 30 TAKE ONE TABLET BY MOUTH EVERY DAY TAKE ONE TABLET BY MOUTH EVERY DAY SOLD: 05/19/2020 [facility] 1,250 mcg (50,000 unit) 05/16/2020 12:00:00 AM EST capsule 4 TAKE ONE CAPSULE BY MOUTH ONCE A WEEK TAKE ONE CAPSULE BY MOUTH ONCE A WEEK SOLD: 05/19/2020 [facility] Cholecalciferol 10386 UNT Oral Tablet Vitamin D3 Ultra Poten cy 05/15/2020 12:00:00 AM EST ORAL completed [facility] ([facility]) Magnesium Oxide 500 MG Oral Capsule Magnesium 05/15/2020 12:00:00 AM EST ORAL active [facility] ([facility]) Amoxicillin 875 MG / Clavulanate 125 MG Oral Tablet Am oxicillin/Clavulanate Potassium 05/07/2020 12:00:00 AM EDT ORAL completed [facility] ([facility]) Lancets Ultra Fine 04/14/2020 12:00:00 AM EDT active [facility] ([facility]) BLOOD SUGAR DIAGNOSTIC 04/14/2020 12:00:00 AM EDT strip 200 TEST THREE TIMES A DAY BEFORE MEALS TEST THREE TIMES A DAY BEFORE MEALS SOLD: 04/14/2020 [facility] BLOOD-GLUCOSE METER 04/14/2020 12:00:00 AM EDT misc 1 TEST BLOOD GLUCOSE THREE TIMES A DAY TEST BLOOD GLUCOSE THREE TIMES A DAY SOLD: 04/14/2020 [facility] Citalopram 20 MG Oral Tablet CITALOPRAM HYDROBROMIDE 04/14/2020 12:00:00 AM EDT tablet 30 TAKE ONE TABLET BY MOUTH EVERY D AY TAKE ONE TABLET BY MOUTH EVERY DAY SOLD: 04/14/2020 [facility] Citalopram 20 MG Oral Tablet CITALOPRAM HYDROBROMIDE 04/14/2020 12:00:00 AM EDT tablet 30 TAKE ONE TABLET BY MOUTH EVERY D AY TAKE ONE TABLET BY MOUTH EVERY DAY SOLD: 06/19/2020 [facility] 33 gauge 04/14/2020 12:00:00 AM EDT misc 100 CHECK GLUCOSE THREE TIMES A DAY CHECK GLUCOSE THREE TIMES A DAY SOLD: 04/14/2020 [facility] Levonorgestrel 0.504500 MG/HR Drug Implant [Mirena] Mirena ( 52 MG) 04/14/2020 12:00:00 AM EDT active M EDENT ([facility]) Citalopram 20 MG Oral Tablet Citalopram Hydrobromide 04/14/2020 12:00:00 AM EDT ORAL active [facility] ( [facility]) Glucose Meter Test Strips Advanced 04/14/2020 12:00:00 AM EDT active [facility] ([facility]) Glucometer 04/14/2020 12:00:00 AM EDT active [facility] ([facility]) 1-0.05 % 04/04/2020 12:00:00 AM EDT cream 15 APPLY TO OUTER EAR CANAL AND RUB IN TWO TIMES A DAY APPLY TO OUTER EAR CANAL AND RUB IN TWO TIMES A DAY SO LD: 04/09/2020 [facility] 10 mg 03/05/2020 12:00:00 AM EDT tablet 30 TAKE ONE TABLET BY MOUTH EVERY DAY TAKE ONE TABLET BY MOUTH EVERY DAY SOLD: 04/11/2020 [facility] 10 mg 03/05/2020 12:00:00 AM EDT tablet 30 TAKE ONE TABLET BY MOUTH EVERY DAY TAKE ONE TABLET BY MOUTH EVERY DAY SOLD: 03/06/2020 [facility] No Active Medications 03/04/2020 12:00:00 AM EDT completed [facility] ([facility]) Citalopram 10 MG Oral Tablet Citalopram Hydrobromide 03/04/2020 12:00:00 AM EDT ORAL completed [facility] ([facility]) 300 mg 02/20/2020 12:00:00 AM EDT capsule 30 TAKE ONE CAPSULE BY MOUTH THREE TIMES A DAY TAKE ONE CAPSULE BY MOUTH THREE TIMES A DAY SOLD: 02/20/2020 [facility] 5-325 mg 02/20/2020 12:00:00 AM EDT tablet 3 TAKE ONE TABLET BY MOUTH THREE TIMES A DAY MAXIMUM DAILY DOSE = 3 TABLETS TAKE ONE TABLET BY MOUTH THREE TIMES A DAY MAXIMUM DAILY DOSE = 3 TABLETS SOLD: 02/20/2020 [facility] 3.5-10,000-1 mg/mL-unit/mL-% 02/20/2020 12:00:00 AM EDT drop s,suspension 10 INSTILL 4 DROPS INTO AFFECTED EAR 3 TO 4 TIMES DAILY FOR 7 DAYS INSTILL 4 DROPS INTO AFFECTED EAR 3 TO 4 TIMES DAILY FOR 7 DAYS SOLD: 02/20/2020 [facility] Dexamethasone 1 MG/ML / Tobramycin 3 MG/ML Ophthalmic Suspension [Tobradex] Tobradex 02/19/2020 12:00:00 AM EDT completed [facility] ([facility]) 2 % 02/15/2020 12:00:00 AM EDT solution 15 INSTILL FIVE DROPS IN RIGHT EAR CANAL FOUR TIMES A DAY FOR 10 DAYS INSTILL FIVE DROPS IN RIGHT EAR CANAL FO UR TIMES A DAY FOR 10 DAYS SOLD: 02/16/2020 [facility] Acetic Acid 20 MG/ML Otic Solution Acetic Acid 02/14/2020 12:00:00 AM EDT completed [facility] ([facility]) 0.5 mg (11)- 1 mg (42) 01/24/2020 12:00:00 AM EDT tablets,do se pack 53 TAKE BY MOUTH DIRECTED TAKE BY MOUTH DIRECTED SOLD: 01/25/2020 [facility] varenicline 0.5 MG Oral Tablet [Chantix] Chantix 01/23/2020 12:00: 00 AM EDT active [facility] ([facility]) 0.3 % 01/10/2020 12:00:00 AM EDT drops 5 INSTILL 3 DROPS INTO AFFECTED EAR(S) TWO TIMES A DAY INSTILL 3 DROPS INTO AFFECTED EAR(S) TWO TIMES A DAY SOLD: 01/10/2020 [facility] 875-125 mg 01/10/2020 12:00:00 AM EDT tablet 14 TAKE ONE TABLET BY MOUTH TWICE A DAY TAKE ONE TABLET BY MOUTH TWICE A DAY SOLD: 01/10/2020 [facility] 600 mg 01/10/2020 12:00:00 AM EDT tablet 30 TAKE ONE TABLET BY MOUTH EVERY 6 HOURS NEEDED FOR PAIN TAKE ONE TABLET BY MOUTH EVERY 6 HOURS A S NEEDED FOR PAIN SOLD: 01/10/2020 [facility] 3.5-10,000-1 mg/mL-unit/mL-% 12/26/2019 12:00:00 AM EDT drop s,suspension 10 INSTILL 3 DROPS INTO AFFECTED EAR(S) THREE TIMES A DAY FOR 7 DAYS INSTILL 3 DROPS INTO AFFECTED EAR(S) THREE TIMES A DAY FOR 7 DAYS SOLD: 12/26/2019 [facility] 500 mg 12/26/2019 12:00:00 AM EDT tablet 10 TAKE ONE TABLET BY MOUTH EVERY 12 HOURS FOR 5 DAYS TAKE ONE TABLET BY MOUTH EVERY 12 HOURS FOR 5 DAYS FLORENTIN [facility] 200 mg 12/26/2019 12:00:00 AM EDT tablet 6 TAKE ONE TABLET BY MOUTH THREE TIMES A DAY FOR 2 DAYS TAKE ONE TABLET BY MOUTH THREE TIMES A DAY FOR 2 DAYS SOLD: 12/26/2019 [facility] Insurance Providers Payer name Policy type / Coverage type Policy ID Covered alliance party ID Covered alliance party's relationship to [place] Policy [place] Plan Information [facility] [id number] SP [id number] [facility] [place] [id number] 18 [id number] [facility] COMMUNTY PLAN [id number] [facility] [employer] XIX [id number] [facility] MEDICAID [id number] [place] [id number] [facility] MEDICAID [id number] [facility](MCA[facility]) O [id number] S [id number] Medicaid [place] Medigap Part B [id number] Self [id number] [facility] Health Maintenance Organization (HMO) [id number] Self [id number] [facility] ([facility] [id number] Self [id number] [facility] (HMO) [id number] Self [id number] [facility] (HMO) [id number] Self [id number] [facility] (HMO) [id number] Self [id number] SELF PAY O [id number] S [id number] [facility] [id number] SP [id number] [facility] [id number] Comme rcial Insurance [id number] [facility] [id number] SP [id number] [facility] (HMO) [id number] Self [id number] Medicaid [place] Medigap Part B [id number] Self [id number] [facility] Health Maintenance Organization (HMO) [id number] Self [id number] [facility] (HMO) [id number] Self [id number] [facility] (HMO) Self SELF PAY ONLY [id number] SP [id number] MEDICAID [id number] SP [id number] SELF PAY UNAVAILABLE SP UNAVAILA BLE BLUE [employer]OSS [employer] PLAN [id number] SP [id number] Medicaid P [id number] S [id number] HMO BLUE [id number] SP [id number] Problems, Conditions, and Diagnoses Code Display Name Description Problem Type Effective Dates Data Source(s) R55 Syncope Syncope [id number] 06/21/2020 12:00:00 AM [facility] [id number] Prediabetes Prediabetes Problem 03/05/2020 12:00:00 AM EDT [facility] ([facility]) [id number] Tobacco user Tobacco user Problem 03/04/2020 12:00:00 A M EDT [facility] ([facility]) [id number] Depressive disorder Depressive disorder Problem 0 03/04/2020 12:00:00 AM EDT [facility] ([facility]) [id number] Obesity Obesity Problem 03/04/2020 12:00:00 AM ED T [facility] ([facility]) M7910 Myalgia, unspecified site Myalgia, unspecified site Di agnosis 07/23/2020 09:38:00 AM [facility] M545 Low back pain Low back pain Diagnosis 07/23/2020 09:38:00 AM [facility] R55 Syncope and collapse Syncope and collapse Diagnosis 06/23/2020 03:35:41 PM [facility] R99 Ill-defined and unknown cause of mortali ty Ill-defined and unknown cause of mortality Diagnosis 06/18/2020 12:43:00 PM [facility] R7303 Prediabetes Prediabetes Diagnosis 06/11/2020 12:57:00 PM [facility] A79893 Pain in right knee Pain in right knee Diagnosis 09/2019 12:57:00 PM [facility] F3289 Other specified depressive episodes Other specif ied depressive episodes Diagnosis 05/15/2020 01:05:00 PM [facility] R252 Cramp and spasm Cramp and spasm Diagnosis 05/15/2020 01:0 5:00 PM [facility] R55 Syncope and collapse Syncope and collapse Diagnosis 05/15/2020 01:05:00 PM [facility] J0120 Acute ethmoidal sinusitis, unspecified A cute ethmoidal sinusitis, unspecified Diagnosis [facility]05[facility]2020 [facility] Acute maxillary sinusitis, unspecified A cute maxillary sinusitis, unspecified Diagnosis 05/05/2020 09:04:00 AM [facility] R222 Localized swelling, mass and lump, trunk Localized swelling, mass and lump, trunk Diagnosis 04/20/2020 [facility] Cervicalgia Cervicalgia Diagnosis 04/14/2020 01:46:00 PM [facility] Z833 Family history of diabetes mellitus Family histo ry of diabetes mellitus Diagnosis 03/04/2020 01:13:00 PM [facility] [id number] Nicotine dependence, cigarettes, uncompl icated Nicotine dependence, cigarettes, uncomplicated Diagnosis [facility] Constipation, unspecified Constipation, unspecified Di agnosis 03/04/2020 01:13:00 PM [facility] [id number] Other otitis externa, right ear Other otitis ext marisa, right ear Diagnosis 03/04/2020 01:13:00 PM [facility] E669 Obesity, unspecified Obesity, unspecified Diagnosis 03/04/2020 01:13:00 PM [facility] Z0000 Encounter for general adult medical exam ination without abnormal findings Encounter for general adult medical examination without abnormal findings Diagnosis 03/04/2020 01:13:00 PM [facility] H6092 Unspecified otitis externa, left ear Unspecified otitis externa, left ear Diagnosis 02/19/2020 08:18:00 PM [facility] H6501 Acute serous otitis media, right ear Acute serou s otitis media, right ear Diagnosis 02/19/2020 08:18:00 PM [facility] H9203 Otalgia, bilateral Otalgia, bilateral Diagnosis 06/2020 08:18:00 PM [facility] Surgeries/Procedures Procedure Description Date Indications Data Source(s) ECG ROUTINE ECG W/LEAST 12 LDS W/I&R POCT AMB EKG Routine 06/23/2020 4:27 PM EST Syncope, unspecified syncope type 06/23/2020 09:27:00 PM EST Syncope, unspecified syncope type [facility] Syncope, unspecified syncope type Magnetic Resonance Angiogtaphy Head W/O Contrast Material(S) 06/22/2020 12:00:00 AM EST [facility] ([facility]) Magnetic Resonance Angiogtaphy Head W/O Contrast Material(S) 06/22/2020 12:00:00 AM EST [facility] ([facility]) Magnetic Resonance Angiography Neck W/O Contrast Materials 06/22/2020 12:00:00 AM EST [facility] ([facility]) Magnetic Resonance Angiography Neck W/O Contrast Materials 06/22/2020 12:00:00 AM EST [facility] ([facility]) TSTG ANS FUNCJ CARDIOVAGAL INNERVAJ PARASYMP 0 12:00:00 AM EST [facility] ([facility]) TSTG ANS FUNCJ CARDIOVAGAL INNERVAJ PARASYMP 0 12:00:00 AM EST [facility] ([facility] ) TESTING AUTONOMIC NERVOUS SYSTEM FUNCTION 06/12/2020 1 2:00:00 AM EST [facility] ([facility] ) TESTING AUTONOMIC NERVOUS SYSTEM FUNCTION 06/12/2020 1 2:00:00 AM EST [facility] ([facility] ) Electrocardiogram Complete 04/14/2020 12:00:00 AM EDT [facility] ([facility]) Brief Emotional/Behav Assessment W/ Scoring Doc Per Standard Inst 04/14/2020 12:00:00 AM EDT [facility] ([facility]) Admin Patient Focused Health Risk Assessment Instrument 04/14/2020 12:00:00 AM EDT [facility] ([facility]) Results ID Date Data Source [id number] 07/23/2020 10:12:00 AM EST [facility] ([facility]) Name Value Range Interpretation Code Description Data Zoila rce(s) Supporting Document(s) Creatine kinase [Enzymatic activity/volume] in Serum or Plasma 146 U/L 30-170 [facility] ([facility]) ID Date Data Source [id number] 07/23/2020 03:11:00 PM EST [facility] Name Value Range Interpretation Code Description Data Zoila rce(s) Supporting Document(s) Creatine kinase [Enzymatic activity/volume] in Serum or Plasma 1 46 U/L 30 - 170 [facility] ID Date Data Source [id number] 07/23/2020 10:01:00 AM EST [facility] ([facility]) Name Value Range Interpretation Code Description Data Zoila rce(s) Supporting Document(s) Spine LS Ap & Lat Laboratory test result [facility] ([facility]) ID Date Data Source [id number] 07/01/2020 11:41:52 AM EST [facility] Name Value Range Interpretation Code Description Data Zoila rce(s) Supporting Document(s) &PDF [facility] OOLRUc4dXdJDGyRe85/YPGorOROyb4MtGPxfIFt0KGeeWUBqY5KcnNcwOASTOXSNXrxIZiyIXlSvZOKo vci [file] ICAgICAgICAgICAgICAgICAgICAgICAgICAgICAgICAgICAgICAgICAgICAgICAgICAgICAgICAgICAg SXGaIYTiBOVlRN3XLBYiRZVcEKGyPAEwFXOrAYCtZUNoVATdOUMwGVJhWBHoVBGkKSYlSBJiUMNrRXKa ICAgICAgICAgICAgICAgICAgICAgICAgICAgICAgIC BlGKGvYDEiGWDdVXDxPVNdIBJdXN1LNOJbLYRoZWQsWPWuALKyDPIpLNRlBCOeVAJxUPXnARJdRERiSP AgICAgICAgICAgICAgICAgICAgICAgICAgICAgICAgICAgICAgICAgICAgICAgICAgICAgICAgICAgIC EbMX3TMHPuVKKrYHTwNEKwRPEvLOEsPJYmUAAiXMUw ICAgICAgICAgICAgICAgICAgICAgICAgICAgICAgICAgICAgICAgICAgICAgICAgICAgICAgICAgICAg MROpXNYhMNBeMCQjAF7DDNPwFKJaDPRlIPOvMREjAQHpZSBiKUKeKPLpNRNyGSMcIWQiNOSmNNEiVWZj ICAgICAgICAgICAgICAgICAgICAgICAgICAgICAgIC EiRMEuANRtEMPnDESmWTMsEQHoFEIfLY8BXQZtPBDwZNXxORGbHKGrHYBtCJSyGAPnGMUrGNZjPCPdYP AgICAgICAgICAgICAgICAgICAgICAgICAgICAgICAgICAgICAgICAgICAgICAgICAgICAgICAgICAgIC BbXZKeWD7HDWKxXVBaMIBoKFEwNZJtUBFyOSGgJMDe ICAgICAgICAgICAgICAgICAgICAgICAgICAgICAgICAgICAgICAgICAgICAgICAgICAgICAgICAgICAg CJXyTYOvQGZvKYBsLBJqHD6KXBCvPQGiVRWbQLBgTXFpVHHePHYlPREeKVPgWLCmHXAcMXCxTEBaRLIo ICAgICAgICAgICAgICAgICAgICAgICAgICAgICAgIC YoANBxLIEtDXGoHJFyBIQwRLQpQEOyAXXiFW2VCELmXVFsHWCdWMKeESVoJCPoVKYsQYHrHYHvVKGeDL AgICAgICAgICAgICAgICAgICAgICAgICAgICAgICAgICAgICAgICAgICAgICAgICAgICAgICAgICAgIC HmNZDyNYBuVY0JVEHuODIeILPwUNXqNZGjZJTvAVCi ICAgICAgICAgICAgICAgICAgICAgICAgICAgICAgICAgICAgICAgICAgICAgICAgICAgICAgICAgICAg JXTxYLDhYNFjSUZiAXNoTBTsUG6MLY70rKNty3F7OSVrCX7lgkd/Xu4HXEmcpwFhfRLcBJ2AKbVmKV3o sy7VJrSwTE1yyu4HLIlWLyFoP9W6cYOySBRhQAIVIz KpB44hGSshZu77DHtpHMXgBjRwTGt0Bp3UZfNwN5odVRIhLxI1TTWsUoR4PRLiKlVbYFolMF1Ha8HysX AyDQo+Hz6HIL4tw3KuERtvLWRhZU1axt0FUYmCYcLmQ9F2sSUaB8S0BUqkXe3DWITzGXIvUNbcBYGETO ydGE9DFC1fonM9YF8VrDXkTTTpGPQzfHBzFRy4C17v bYPuJTfgPD6GENO+Sourav+Cm7SBTMzMDXgEHNaLlHuBHIWNhDnM62whUCbNAYmDBYpKOKzFv6JXNVrJ1Bu qhEgrEezkvZgPPWcRNCGCJ3LSVyinwMecVOrnJtpNF20nNqnGC8EHb8TXlRcRS4ywb5YoNElQy1UMFZk Oz6SZZLoKNWjTFSrZME7NBXsTxQhLPjuYLTfQWSaTY I7UBQrUMBdAA3LJpGnJFNyRDB4AOOzOPSwQYYzkh8PTIKrICWmSGYyNwBdRWLiJXMxJJciKQHkNDYiIS grEJPbUQIlJW7PEaDsCXBoWWC1XQmdEARzDEZyvq4UHASvNIZtYsXcNDPfLXZoIRUxZLupKATcMLUyXB d9HCRrORMfVG6NJnGtSBDoIYF7RIQnIUAsJJCkyr7M FJTfSYCdHHf7CnIoRJYjLIKvAWxfXKDnPUE1NXZ6TCQtTSJwBI4UCqCmTTOfCMYyKbumDAFrHXBiaf2B OWOyYVBdVfN2EGKtLMSpLAAePMrvKMIcKJP6WjakOPFtCXHiMW3YUrRxGXIcCWS4YeikUFCvRVSuyc0H MTMpUXAgXqDeKnAdQRKcPFVwSUleJHTyVEK2GnZ4ZO SaVVEkPB6EEdLiRJMrBNz7EyPkIJCoIOAzvu7MNPBfCFOsMpAoGFQfSSMvKDDjZDlzBWNjMRC8KJBfIP MgFECvOU4SZwCoAAYiGHR3UmJlRFAkXNCauq0HVBStZOLtIRQtKqFgKTCbUIUwZZv8jsGqwBQeKWw6EG 6CT0SxnuTwJqBDXn9Zl368TSMiMDVdDp3YI0sjMi9r HWKcAWGJJg9JHXz6DcjbWABwWwA0QLV1IYG9ZsWoVsiyEkQjScUdSei6MDH+NBflBrA4H4XdPEU5KOOa ElBwI3JtPTMdDSB2XTNjBlcxYf5xUJTWTf1+GXzitAGszUweGLSPEyG5LUl0VWjdLKOTNy0A ID Date Data Source [id number] 06/11/2020 01:26:00 PM EST [facility] ([facility]) Name Value Range Interpretation Code Description Data Zoila rce(s) Supporting Document(s) Aldolase [Enzymatic activity/volume] in Serum or Plasma 6.2 U/L 3. 3-10.3 [facility] ([facility]) Creatine kinase [Enzymatic activity/volume] in Serum or Plasma 1 75 U/L 30-170 Above high normal [facility] ([facility]) ID Date Data Source [id number] 06/11/2020 01:26:00 PM EST [facility] ([facility]) Name Value Range Interpretation Code Description Data Zoila rce(s) Supporting Document(s) Creatine kinase [Enzymatic activity/volume] in Serum or Plasma 1 75 U/L 30-170 Above high normal [facility] ([facility]) ID Date Data Source [id number] 06/11/2020 01:22:00 PM EST [facility] ([facility]) Name Value Range Interpretation Code Description Data Zoila rce(s) Supporting Document(s) US Ext-Non Vascular RT Complete Laboratory test result [facility] ([facility]) ID Date Data Source [id number] 06/15/2020 03:27:00 PM EST [facility] Name Value Range Interpretation Code Description Data Zoila rce(s) Supporting Document(s) Aldolase [Enzymatic activity/volume] in Serum or Plasma 6.2 U/L 3. 3-10.3 [facility] ID Date Data Source [id number] 06/11/2020 06:21:00 PM EST [facility] Name Value Range Interpretation Code Description Data Zoila rce(s) Supporting Document(s) Creatine kinase [Enzymatic activity/volume] in Serum or Plasma 1 75 U/L 30 - 170 H [facility] ID Date Data Source [id number] 06/11/2020 01:19:00 PM EST [facility] ([facility]) Name Value Range Interpretation Code Description Data Zoila rce(s) Supporting Document(s) Knee Ap & Lat RT Laboratory test result [facility] ([facility]) ID Date Data Source [id number] 05/15/2020 01:41:00 PM EST [facility] ([facility]) Name Value Range Interpretation Code Description Data Zoila rce(s) Supporting Document(s) Creatine kinase [Enzymatic activity/volume] in Serum or Plasma 5 54 U/L 30-170 Above high normal [facility] ([facility]) Is patient fasting? N Rheumatoid factor [Units/volume] in Serum or Plasma Laboratory t est result 0-14 [facility] ([facility]) Is patient fasting? N ID Date Data Source [id number] 05/15/2020 01:41:00 PM EST [facility] ([facility]) Name Value Range Interpretation Code Description Data Zoila rce(s) Supporting Document(s) Sed Rate Reenter 6 [facility] ([facility]) Is patient fasting? N Sed Rate 6 mm/hr 0-20 [facility] ([facility]) Is patient fasting? N ID Date Data Source [id number] 05/15/2020 01:41:00 PM EST [facility] ([facility]) Name Value Range Interpretation Code Description Data Zoila rce(s) Supporting Document(s) Erythrocyte sedimentation rate by Westergren method Laboratory test result [facility] ([facility]) Rheumatoid factor [Units/volume] in Serum or Plasma Laboratory test result [facility] ([facility]) Creatine kinase [Enzymatic activity/volume] in Serum o r Plasma Laboratory test result [facility] ([facility]) Glucose [Mass/volume] in Serum or Plasma 90 mg/dL 65-110 [facility] ([facility]) Is patient fasting? N Nuclear Ab [Titer] in Serum by Immunofluorescence Laboratory test res ult [facility] ([facility]) Is patient fasting? N ID Date Data Source [id number] 05/15/2020 01:41:00 PM EST [facility] ([facility]) Name Value Range Interpretation Code Description Data Zoila rce(s) Supporting Document(s) Lyme IgG/IgM Ab Laboratory test result 0.00-0.90 [facility] ([facility]) Is patient fasting? N Lyme Disease Ab, Quant,IgM 1.30 index 0.00-0.79 Above high normal [facility] ([facility]) Is patient fasting? N IgG P93 Ab. Laboratory test result [facility] ([facility]) Is patient fasting? N IgG P66 Ab. Laboratory test result [facility] ([facility]) Is patient fasting? N IgG P58 Ab. Laboratory test result [facility] ([facility]) Is patient fasting? N IgG P41 Ab. Laboratory test result Abnormal (applies to non-numeric results) [facility] ([facility]) Is patient fasting? N IgG P39 Ab. Laboratory test result [facility] ([facility]) Is patient fasting? N IgG P45 Ab. Laboratory test result [facility] ([facility]) Is patient fasting? N IgG P30 Ab. Laboratory test result [facility] ([facility]) Is patient fasting? N IgG P28 Ab. Laboratory test result [facility] ([facility]) Is patient fasting? N IgG P18 Ab. Laboratory test result [facility] ([facility]) Is patient fasting? N IgG P23 Ab. Laboratory test result [facility] ([facility]) Is patient fasting? N Laboratory test finding (navigational concept) Laboratory test result [facility] ([facility]) Is patient fasting? N IgM P39 Ab. Laboratory test result [facility] ([facility]) Is patient fasting? N IgM P41 Ab. Laboratory test result [facility] ([facility]) Is patient fasting? N Laboratory test finding (navigational concept) Laboratory test result [facility] ([facility]) Is patient fasting? N IgM P23 Ab. Laboratory test result M [facility] ([facility]) Is patient fasting? N ID Date Data Source [id number] 05/15/2020 01:41:00 PM EST [facility] ([facility]) Name Value Range Interpretation Code Description Data Zoila rce(s) Supporting Document(s) Magnesium [Mass/volume] in Serum or Plasma 2.0 mg/dL 1.7-2.2 [facility] ([facility]) Is patient fasting? N ID Date Data Source [id number] 05/19/2020 04:13:00 PM [facility] Name Value Range Interpretation Code Description Data Zoila rce(s) Supporting Document(s) Borrelia burgdorferi IgG+IgM Ab [Units/volume] in Serum <0.91 ISR 0. 00-0.90 [facility] Negative <0.91 Equivocal 0.91 - 1.09 Positive >1.09 Borrelia burgdorferi IgM Ab [Units/volume] in Serum by Immun oassay 1.30 index 0.00-0.79 H [facility] Negative <0.80 Equivocal 0.80 - 1.19 Positive >1.19 IgM levels may peak at 3-6 weeks post infection, then gradually decline. Borrelia burgdorferi 93kD IgG Ab [Presence] in Serum by Immu noblot (IB) Absent [facility] Borrelia burgdorferi 66kD IgG Ab [Presence] in Serum by Immu noblot (IB) Absent [facility] Borrelia burgdorferi 58kD IgG Ab [Presence] in Serum by Immu noblot (IB) Absent [facility] Borrelia burgdorferi 45kD IgG Ab [Presence] in Serum by Immu noblot (IB) Absent [facility] Borrelia burgdorferi 41kD IgG Ab [Presence] in Serum by Immu noblot (IB) Present A [facility] Borrelia burgdorferi 39kD IgG Ab [Presence] in Serum by Immu noblot (IB) Absent [facility] Borrelia burgdorferi 30kD IgG Ab [Presence] in Serum by Immu noblot (IB) Absent [facility] Borrelia burgdorferi 28kD IgG Ab [Presence] in Serum by Immu noblot (IB) Absent [facility] Borrelia burgdorferi 23kD IgG Ab [Presence] in Serum by Immu noblot (IB) Absent [facility] Borrelia burgdorferi 18kD IgG Ab [Presence] in Serum by Immu noblot (IB) Absent [facility] Borrelia burgdorferi Ab.IgG band pattern [Interpretation] in Serum by Immunoblot (IB) Negative [facility] Posi tive: 5 of the following Borrelia-specific bands: 18,23,28,30,39,41,45,58, 66, and 93. Negative: No bands or banding patterns which do not meet positive criteria. Borrelia burgdorferi 41kD IgM Ab [Presence] in Serum by Immu noblot (IB) Absent [facility] Borrelia burgdorferi 39kD IgM Ab [Presence] in Serum by Immu noblot (IB) Absent [facility] Borrelia burgdorferi 23kD IgM Ab [Presence] in Serum by Immu noblot (IB) Absent [facility] Borrelia burgdorferi Ab.IgM band pattern [Interpretation] in Serum by Immunoblot (IB) Negative [facility] Note: An equivocal or positive EIA resul t followed by a negativeLine Blot result is considered NEGATIVE. An equivocal or positiveEIA result followed by a positive Line Blot is considered POSITIVEby the CDC.Positive: 2 of the following bands: 23,39 or 41Negative: No bands or banding patterns which do not meet positivecriteria.Criteria for positivity are those recommended by CDC/ASTPHLD.p23=Osp C, w53=josmcaojeGodg:Sera from individuals with the following may cross react in theLyme Line Blot assays: other spirochetal diseases (periodontaldisease, leptospirosis, relapsing fever, yaws, and pinta);connective autoimmune (Rheumatoid Arthritis and Systemic LupusErythematosus and also individuals with Antinuclear Antibody);other infections (Cogdell Spotted Fever; Shayy-Garcia Virus,and Cytomegalov irus). ID Date Data Source [id number] 05/18/2020 06:48:00 PM [facility] Name Value Range Interpretation Code Description Data Zoila rce(s) Supporting Document(s) Nuclear Ab [Titer] in Serum by Immunofluorescence Negative [facility] Negative <1:80 Borderline 1:80 Positive >1:80 ID Date Data Source [id number] 05/15/2020 08:08:00 PM [facility] Name Value Range Interpretation Code Description Data Zoila rce(s) Supporting Document(s) Erythrocyte sedimentation rate by Westergren method 6 mm/hr 0 - 20 [facility] SED RATE REENTER 6 [facility] ID Date Data Source [id number] 05/15/2020 07:58:00 PM [facility] Value Range Interpretation Code Description Data Zoila rce(s) Supporting Document(s) Creatine kinase [Enzymatic activity/volume] in Serum or Plasma 5 54 U/L 30 - 170 H [facility] ID Date Data Source [id number] 05/15/2020 07:58:00 PM [facility] Value Range Interpretation Code Description Data Zoila rce(s) Supporting Document(s) RA QUANT <10 IU/mL 0 - 14 [facility] ID Date Data Source [id number] 05/15/2020 07:58:00 PM [facility] Value Range Interpretation Code Description Data Zoila rce(s) Supporting Document(s) Glucose [Mass/volume] in Serum or Plasma 90 MG/DL 65 - 110 [facility] ID Date Data Source [id number] 05/15/2020 07:58:00 PM [facility] Value Range Interpretation Code Description Data Zoila rce(s) Supporting Document(s) Magnesium [Mass/volume] in Serum or Plasma 2.0 MG/DL 1.7 - 2.2 [facility] ID Date Data Source [id number] 05/06/2020 10:22:00 AM EDT [facility] [address] [place] [address] PHONE: [phone] FAX: [phone] Name .................. : ANA Fuchs Acct Number.................. : [id number] ROOM. ................. : MR Number ................... : [id number] Stay type ............. : O/P Discharge Date......... ... : 05/05/20 Admit Date ......... : 05/05/20 Admit Phys .................... : RAMIRO Date of ....... : 1995 Family Phys ................... : NO PCP Phone .................. : [phone] Age ................................ : 24 Film# .................. .:[id number] Sex ................................. : F Unsigned transcriptions are preliminary reports and do not represent a medical or legal document MRI BRAIN W&W/O CONTRAST [id number] COMPLETE:05/05/20 11:50 TONYA [id number] SYNCOPE AND COLLAPSE MRI OF THE BRAIN WITH AND WITHOUT CONTRAST, 05/05/20: FINDINGS: There is no focal lesion of abnormal increased or decreased signal intensity. There is no mass, mass effect, midline shift, extra-axial fluid collection, or intracranial hemorrhage. The ventricles are normal size and configuration. The craniocervical junction is within normal limits. Normal flow voids are present within the major intracranial vessels. No acute infarction is identified. No suspicious areas of enhancement occur after the contrast administration. The orbits are unremarkable. There is moderate to severe mucosal thickening at the left maxillary sinus and moderate on the right. There is moderate mucosal thickening at ethmoidal air cells. IMPRESSION: Intracranially unremarkable MRI of the brain. Moderate to severe left and moder ate right maxillary and moderate ethmoid sinus disease. Electronically Reviewed and Signed By Girma Oconnor MD , 05/06/20 10:22, TDS Transcribe Initials: SSR, Transcribe Date: 05/05/20 13:04, Dictation Date: Copy for: [address] [place] [address] REC Page 1 of 1 Name Value Range Interpretation Code Description Data Zoila rce(s) Supporting Document(s) ID Date Data Source [id number] 04/21/2020 11:01:00 [place] [address] PHONE: [phone] FAX: [phone] Name .................. : ANA Fuchs Acct Number.................. : [id number] ROOM. ................. : Number ................... : [id number] Stay type ............. : O/P Discharge Date......... ... : 04/20/20 Admit Date ......... : 04/20/20 Admit Phys .................... : RAMIRO Date of ....... : 1995 Family Phys ................... : NO PCP Phone .................. : [phone] Age ................................ : 24 Film# .................. .:[id number] Sex ................................. : F Unsigned transcriptions are preliminary reports and do not represent a medical or legal document US SOFT TISSUE UPPPER BACK [id number] COMPLETE:04/20/20 14:32 KNB [id number] (TEST REASON: MASS UPPER THORACIC ULTRASOUND OF THE SOFT TISSUES OF THE MIDLINE OF THE UPPER BACK: TECHNIQUE: Imaging is performed at the area of interest indicated by the patient. FINDINGS: No distinct cystic or soft tissue mass is identified. No discrete abnormality is identified. IMPRESSION: No discrete mass. Examination dictated by LIUDMILA Portillo. Examination was reviewed with Velasquez Oconnor MD, radiologist at the time of this dictation. Electronically Reviewed and Signed By Girma Oconnor MD , 04/21/20 11:01, TDS Transcribe Initials: DZ , Transcribe Date: 04/20/20 22:11, Dictation Date: Copy for: 710 MED REC Page 1 of 1 Name Value Range Interpretation Code Description Data Zoila rce(s) Supporting Document(s) ID Date Data Source [id number] 04/15/2020 07:09:00 AM EDT [facility] ([facility]) Name Value Range Interpretation Code Description Data Zoila rce(s) Supporting Document(s) Laboratory test finding (navigational concept) Laboratory test result [facility] ([facility]) ID Date Data Source [id number] 04/14/2020 02:51:00 PM EDT [facility] ([facility]) Name Value Range Interpretation Code Description Data Zoila rce(s) Supporting Document(s) Inhouse EKG Laboratory test result [facility] ([facility]) ID Date Data Source [id number] 04/14/2020 02:28:00 PM EDT [facility] ([facility]) Name Value Range Interpretation Code Description Data Zoila rce(s) Supporting Document(s) Sodium 138 meq/L 134-153 [facility] ([facility]) Is patient fasting? N Basic Metabolic Pane Laboratory test result [facility] ([facility]) BASIC METABOLIC PANEL Potassium 4.4 meq/L 3.6-5.0 [facility] ([facility]) Is patient fasting? N Chloride 101 meq/L 98-107 [facility] ([facility]) Is patient fasting? N Co2 25 meq/L 22-30 [facility] ([facility]) Is patient fasting? N Glucose 99 mg/dL 65-110 [facility] ([facility]) Is patient fasting? N Creatinine 0.8 mg/dL 0.7-1.5 [facility] ([facility]) Is patient fasting? N BUN 13 mg/dL 7-21 [facility] ([facility]) Is patient fasting? N Calcium 9.4 mg/dL 8.4-10.2 [facility] ([facility]) Is patient fasting? N BUN/Creat 16 8-27 [facility] ([facility]) Is patient fasting? N Age 24 yrs [facility] ([facility]) Is patient fasting? N Anion Gap 12.0 mmol/L 8.0-16.0 [facility] ([facility]) Is patient fasting? N Afr Amer GFR Laboratory test result [facility] ([facility]) Is patient fasting? N Non-Aa GFR Laboratory test result [facility] ([facility]) Male GFR Interprentation 20-49 yrs >60 mL/min Normal 50-59 yrs >56 mL/min Normal 60-69 yrs >49 mL/min Normal 70-79yrs >42 mL/min Normal 80 and above >35 mL/min Normal Female GFR Interpretation 20-39 yrs >60 mL/min Normal 40-49 yrs >58 mL/min Normal 50-59 yrs >51 mL/min Normal 60-69 yrs >45 mL/min Normal 70-79 yrs >39 mL/min Normal 80 and above >32 mL/min Normal ID Date Data Source [id number] 04/14/2020 02:28:00 PM EDT [facility] ([facility]) Name Value Range Interpretation Code Description Data Zoila rce(s) Supporting Document(s) Hemoglobin A1c/Hemoglobin.total in Blood 6.2 % 4.4-6.1 Above high normal [facility] ([facility]) {A1] {HB] ID Date Data Source [id number] 04/14/2020 06:26:00 PM EDT [facility] Name Value Range Interpretation Code Description Data Zoila rce(s) Supporting Document(s) BASIC METABOLIC PANEL [facility] BASIC METABOLIC PANEL Sodium [Moles/volume] in Serum or Plasma 138 mEq/L 134 - 153 [facility] Potassium [Moles/volume] in Serum or Plasma 4.4 mEq/L 3.6 - 5.0 [facility] Chloride [Moles/volume] in Serum or Plasma 101 mEq/L 98 - 107 [facility] Carbon dioxide, total [Moles/volume] in Serum or Plasma 25 MEQ/L 22 - 30 [facility] Glucose [Mass/volume] in Serum or Plasma 99 MG/DL 65 - 110 [facility] BUN 13 MG/DL 7 - 21 [facility] al Creatinine [Mass/volume] in Serum or Plasma 0.8 MG/DL 0.7 - 1.5 [facility] BUN/CREAT 16 8 - 27 [facility] al Calcium [Mass/volume] in Serum or Plasma 9.4 MG/DL 8.4 - 10.2 [facility] Anion gap 3 in Serum or Plasma 12.0 mmol/L 8.0 - 16.0 [facility] 24 [facility] >60 mL/min [facility] NON-AA GFR >60 mL/min [facility] ital Male GFR Inter prentation 20-49 yrs >60 mL/min Normal 50-59 yrs >56 mL/min Normal 60-69 yrs >49 mL/min Normal 70-79yrs >42 mL/min Normal 80 and above >35 mL/min Normal Female GFR Interpretation 20-39 yrs >60 mL/min Normal 40-49 yrs >58 mL/min Normal 50-59 yrs >51 mL/min Normal 60-69 yrs >45 mL/min Normal 70-79 yrs >39 mL/min Normal 80 and above >32 mL/min Normal ID Date Data Source [id number] 04/14/2020 06:26:00 PM EDT [facility] Name Value Range Interpretation Code Description Data Zoila rce(s) Supporting Document(s) Hemoglobin A1c/Hemoglobin.total in Blood 6.2 % 4.4 - 6.1 H [facility] {A1]{HB] ID Date Data Source [id number] 04/14/2020 02:27:00 PM EDT [facility] ([facility]) Name Value Range Interpretation Code Description Data Zoila rce(s) Supporting Document(s) CT Head W/O Contrast Laboratory test result [facility] ([facility]) ID Date Data Source [id number] 03/04/2020 01:53:00 PM EDT [facility] ([facility]) Name Value Range Interpretation Code Description Data Zoila rce(s) Supporting Document(s) CBC No Diff Laboratory test result [facility] ([facility]) COMPLETE BLOOD COUNT WBC 10.7 10^3/uL 4.2-11.0 [facility] ([facility]) Is patient fasting? N Hemoglobin 14.4 g/dL 12.0-16.0 [facility] ([facility]) Is patient fasting? N RBC 4.86 10^6/uL 4.20-5.40 [facility] ([facility]) Is patient fasting? N MCV 87.4 fL 81.0-101 [facility] ([facility]) Is patient fasting? N Hematocrit 42.5 % 37.0-47.0 [facility] ([facility]) Is patient fasting? N MCH 29.6 pg 27.0-34.0 [facility] ([facility]) Is patient fasting? N MCHC 33.9 g/dL 31.0-36.0 [facility] ([facility]) Is patient fasting? N RDW 12.9 % 11.5-14.5 [facility] ([facility]) Is patient fasting? N Platelets 259 10^3/uL 150-450 [facility] ([facility]) Is patient fasting? N MPV 10.9 fL 7.4-10.4 Above high normal [facility] ([facility]) Is patient fasting? N ID Date Data Source [id number] 03/04/2020 01:53:00 PM EDT [facility] ([facility]) Name Value Range Interpretation Code Description Data Zoila rce(s) Supporting Document(s) Comprehensive Metabo Laboratory test result [facility] ([facility]) COMPREHENSIVE METABOLIC PANEL Sodium 135 meq/L 134-153 [facility] ([facility]) Is patient fasting? N Potassium 3.9 meq/L 3.6-5.0 [facility] ([facility]) Is patient fasting? N Chloride 101 meq/L 98-107 [facility] ([facility]) Is patient fasting? N Co2 22 meq/L 22-30 [facility] ([facility]) Is patient fasting? N Glucose 199 mg/dL 65-110 Above high normal [facility] ([facility]) Is patient fasting? N Creatinine 0.7 mg/dL 0.7-1.5 [facility] ([facility]) Is patient fasting? N BUN 11 mg/dL 7-21 [facility] ([facility]) Is patient fasting? N BUN/Creat 16 8-27 [facility] ([facility]) Is patient fasting? N Total Protein 7.3 g/dL 6.3-8.2 [facility] ([facility]) Is patient fasting? N Globulin 2.7 GM/DL 2.4-3.2 [facility] ([facility]) Is patient fasting? N Albumin 4.6 g/dL 3.9-5.0 [facility] ([facility]) Is patient fasting? N Calcium 9.6 mg/dL 8.4-10.2 [facility] ([facility]) Is patient fasting? N Total Bili Laboratory test result 0.2-1.3 [facility] ([facility]) Is patient fasting? N A/G Ratio 1.7 0.8-2.0 [facility] ([facility]) Is patient fasting? N Alkaline Phos 75 U/L 38-126 [facility] ([facility]) Is patient fasting? N Sgot/Ast 15 U/L 5-40 [facility] ([facility]) Is patient fasting? N Anion Gap 12.0 mmol/L 8.0-16.0 [facility] ([facility]) Is patient fasting? N SGPT/Alt 13 U/L 7-56 [facility] ([facility]) Is patient fasting? N Age 24 yrs [facility] ([facility]) Is patient fasting? N Non-Aa GFR Laboratory test result [facility] ([facility]) Is patient fasting? N Afr Amer GFR Laboratory test result [facility] ([facility]) Male GFR Interprentation 20-49 yrs >60 mL/min Normal 50-59 yrs >56 mL/min Normal 60-69 yrs >49 mL/min Normal 70-79yrs >42 mL/min Normal 80 and above >35 mL/min Normal Female GFR Interpretation 20-39 yrs >60 mL/min Normal 40-49 yrs >58 mL/min Normal 50-59 yrs >51 mL/min Normal 60-69 yrs >45 mL/min Normal 70-79 yrs >39 mL/min Normal 80 and above >32 mL/min Normal ID Date Data Source [id number] 03/04/2020 01:53:00 PM EDT [facility] ([facility]) Name Value Range Interpretation Code Description Data Zoila rce(s) Supporting Document(s) Culture MRSA Laboratory test result [facility] ([facility]) _CULTURE MRSA SCREENING_ SEE SEPARATE REFERENCE LAB REPORT ID Date Data Source [id number] 03/04/2020 01:53:00 PM EDT [facility] ([facility]) Name Value Range Interpretation Code Description Data Zoila rce(s) Supporting Document(s) Thyrotropin [Units/volume] in Serum or Plasma 0.84 uIU/mL 0.47-5.01 [facility] ([facility]) Is patient fasting? N Cobalamin (Vitamin B12) [Mass/volume] in Serum or Plasma 383 pg/mL 2 32-1245 [facility] ([facility]) Is patient fasting? N Calcidiol [Mass/volume] in Serum or Plasma 25 ng/mL [facility] ([facility]) <content>VITAMIN-D(25HYDROXY)</content>< br/><content>Deficiency: <=20 ng/ml</content>
<content>Insufficiency: 21-29 ng/ml</content>
<content>Preferred level: => 30 ng/ml</content>
<conten t></content> Hemoglobin A1c/Hemoglobin.total in Blood 6.3 % 4.4-6.1 Above high normal [facility] ([facility]) {A1] {HB] ID Date Data Source [id number] 03/19/2020 12:06:00 PM EDT [facility] Value Range Interpretation Code Description Data Zoila rce(s) Supporting Document(s) CULTURE MRSA [facility] pital _CULTURE MRSA SCREENING_ SEE SEP ARATE REFERENCE LAB REPORT ID Date Data Source [id number] 03/04/2020 06:23:00 PM EDT [facility] Value Range Interpretation Code Description Data Zoila rce(s) Supporting Document(s) Cobalamin (Vitamin B12) [Mass/volume] in Serum or Plasma 383 PG/ML 232 - 1245 [facility] ID Date Data Source [id number] 03/04/2020 06:23:00 PM EDT [facility] Value Range Interpretation Code Description Data Zoila rce(s) Supporting Document(s) Calcidiol [Moles/volume] in Serum or Plasma 25 NG/ML [facility] VITAMIN-D(2 5HYDROXY) Deficiency: <=20 ng/ml Insufficiency: 21-29 ng/ml Preferred level: => 30 ng/ml ID Date Data Source [id number] 03/04/2020 06:23:00 PM EDT [facility] Value Range Interpretation Code Description Data Zoila rce(s) Supporting Document(s) Thyrotropin [Units/volume] in Serum or Plasma by Detec tion limit <= 0.05 mIU/L 0.84 uIU/mL 0.47 - 5.01 [facility] ID Date Data Source [id number] 03/04/2020 05:56:00 PM EDT [facility] Value Range Interpretation Code Description Data Zoila rce(s) Supporting Document(s) COMPREHENSIVE METABOLIC PANEL [facility] COMPREHENSIVE METABOLIC PANEL Sodium [Moles/volume] in Serum or Plasma 135 mEq/L 134 - 153 [facility] Potassium [Moles/volume] in Serum or Plasma 3.9 mEq/L 3.6 - 5.0 [facility] Chloride [Moles/volume] in Serum or Plasma 101 mEq/L 98 - 107 [facility] Carbon dioxide, total [Moles/volume] in Serum or Plasma 22 MEQ/L 22 - 30 [facility] Glucose [Mass/volume] in Serum or Plasma 199 MG/DL 65 - 110 [facility] BUN 11 MG/DL 7 - 21 [facility] al Creatinine [Mass/volume] in Serum or Plasma 0.7 MG/DL 0.7 - 1.5 [facility] BUN/CREAT 16 8 - 27 [facility] Protein [Mass/volume] in Serum or Plasma 7.3 G/DL 6.3 - 8.2 [facility] Albumin [Mass/volume] in Serum or Plasma 4.6 G/DL 3.9 - 5.0 [facility] Globulin [Mass/volume] in Serum by calculation 2.7 GM/DL 2.4 - 3.2 [facility] A/G RATIO 1.7 0.8 - 2.0 [facility] Calcium [Mass/volume] in Serum or Plasma 9.6 MG/DL 8.4 - 10.2 [facility] Bilirubin.total [Mass/volume] in Serum or Plasma <0.7 MG/DL 0.2 - 1.3 [facility] Alkaline phosphatase [Enzymatic activity/volume] in Serum or Plasma 75 U/L 38 - 126 [facility] Aspartate aminotransferase [Enzymatic activity/volume] in Serum or Plasma 15 U/L 5 - 40 [facility] Alanine aminotransferase [Enzymatic activity/volume] in Seru m or Plasma 13 U/L 7 - 56 [facility] Anion gap 3 in Serum or Plasma 12.0 mmol/L 8.0 - 16.0 [facility] AGE 24 yrs [facility] al NON-AA GFR >60 mL/min [facility] ital AFR AMER GFR >60 mL/min [facility] Ho spital Male GFR In terprentation 20-49 yrs >60 mL/min Normal 50-59 yrs >56 mL/min Normal 60-69 yrs >49 mL/min Normal 70-79yrs >42 mL/min Normal 80 and above >35 mL/min Normal Female GFR Interpretation 20-39 yrs >60 mL/min Normal 40-49 yrs >58 mL/min Normal 50-59 yrs >51 mL/min Normal 60-69 yrs >45 mL/min Normal 70-79 yrs >39 mL/min Normal 80 and above >32 mL/min Normal ID Date Data Source [id number] 03/04/2020 05:26:00 PM EDT [facility] Name Value Range Interpretation Code Description Data Zoila rce(s) Supporting Document(s) Hemoglobin A1c/Hemoglobin.total in Blood 6.3 % 4.4 - 6.1 H [facility] {A1]{HB] ID Date Data Source [id number] 03/04/2020 05:12:00 PM EDT [facility] Name Value Range Interpretation Code Description Data Zoila rce(s) Supporting Document(s) CBC NO DIFF [facility] ital COMPLETE BLOOD COUNT Leukocytes [#/volume] in Blood by Automated count 10.7 10^3/uL 4.2 - 11.0 [facility] Erythrocytes [#/volume] in Blood by Automated count 4.86 10^6/uL 4. 20 - 5.40 [facility] Hemoglobin [Mass/volume] in Blood 14.4 g/dL 12.0 - 16.0 [facility] Hematocrit [Volume Fraction] of Blood by Automated count 42.5 % 3 7.0 - 47.0 [facility] Erythrocyte mean corpuscular volume [Entitic volume] by Auto mated count 87.4 fL 81.0 - 101 [facility] Erythrocyte mean corpuscular hemoglobin [Entitic mass] by Automated count 29.6 pg 27.0 - 34.0 [facility] Erythrocyte mean corpuscular hemoglobin concentration [Mass/volume] by Automated count 33.9 g/dL 31.0 - 36.0 [facility] Erythrocyte distribution width [Ratio] by Automated count 12.9 % 11.5 - 14.5 [facility] Platelets [#/volume] in Blood by Automated count 259 10^3/uL 150 - 45 0 [facility] Platelet mean volume [Entitic volume] in Blood by Automated count 10.9 fL 7.4 - 10.4 H [facility] ID Date Data Source [id number] 02/19/2020 08:18:00 PM EDT [facility] 1 OrderSheet [facility] Emergency Department [address] [place] [address] Phone #: ext- [phone] 02/19/2020 20:03 Patient: KINGSLEY PEREZ Sex: F : 1995 Age: 24yWEIGHT:97.5 kg (S) HEIGHT:66 inches BMI:34.7ALLERGIES: NoneCHIEF COMPLAINT: earacheDIAGNOSIS: Otitis media, Otitis externaLAB ORDERSOrder Description Priority Entered Acknowledged InitialedDIAGNOSTIC STUDY ORDERSOrder Description Priority Entered Acknowledged InitialedMEDICATION/IV/DRIP/FLUID ORDERSOrder Description Priority Entered Acknowledged InitialedToradol IM 30 mg 20:54 02/19/2020 21:11 Milo Pennington.N. P.A.- C;Rocephin IM 1000 20:54 02/19/2020 21:11 Sorbero,mg Milo DaleyN. P.A.-C;Ativan PO 1 mg 20:54 02/19/2020 21:10 Milo Pennington.N. P.A.-C;Tylenol 1 g PO X1 20:54 02/19/2020 21:11 Sorbstanford,dose: 1000 mg Milo DaleyN.(NOW x1) P.A.-C;GENERAL ORDERSOrder Description Priority Entered Acknowledged Initialed[Electronically signed by Caleb Wyatt RN (22:11 02/19/2020)][Electronically signed by Milo Campbell P.A.-C (17:29 02/20/2020)][Electronically locked by Caleb Wyatt RN (22:11 02/19/2020)] Name Value Range Interpretation Code Description Data Zoila rce(s) Supporting Document(s) ID Date Data Source [id number] 02/19/2020 08:18:00 PM EDT [facility] 1 Medication Reconciliation Report [facility] Department [address] [place] [address] Phone #: ext- [phone] 02/19/2020 20:03 Patient: KINGSLEY PEREZ Sex: F : 1995 Age: 24yWeight: 97.5 kgHeight/Length: 66 in.BMI: 34.7ALLERGIES: NoneThe patient's Home Medications are listed below:THE FOLLOWING MEDICATIONS NEED TO BE RECONCILED: Ear DropsThe source(s) of the original Home Medication information:Not obtained.The following Medications were given to the patient in the Emergency Department:Ativan [PO] PO 1 mg, administered: 02/19/2020 9:10:00 PMTylenol [PO] PO 1000 mg, administered: 02/19/2020 9:11:00 PMRocephin [IM] IM 1 gm, administered: 02/19/2020 9:11:00 PMToradol [IM] IM 30 mg, administered: 02/19/2020 9:11:00 PMThe following Medications were prescribed to the patient:[place]ville 5 mg-325 mg tablet Take 1 tablet three times a day for 1 days -- Dispense 3 tablet. Refills: 0.Substitution permitted.[facility] - [id number] ; [place] [address]. FaxNumber: .Ciprodex 0.3 %- 0.1 % ear drops,suspension Instill 4 drop twice a day for 7 days -- Instill 4 drops intoaffected ear twice daily for 7 days. Dispense 1 bottle. Refills: 0. Substitution permitted. Note to Pharmacy -EAR DROPS.[facility] - [id number] ; [place] [address]. FaxNumber: .clindamycin HCl 300 mg capsule Take 1 capsule three times a day for 10 days -- Dispense 30 capsule. 2 Medication Reconciliation Report [facility] [address] [place] [address] Phone #: ext- [phone] 02/19/2020 20:03 Patient: KINGSLEY PEREZ Sex: F : 1995 Age: 24yRefills: 0. Substitution permitted.[facility] - [id number] ; [place] [address]. FaxNumber: . -- Milo Campbell P.A.-C Name Value Range Interpretation Code Description Data Zoila rce(s) Supporting Document(s) ID Date Data Source [id number] 02/19/2020 08:18:00 PM EDT [facility] 1 Medication Administration Record [facility] [address] [place] [address] Phone #: ext- [phone] 02/19/2020 20:03 Patient: KINGSLEY PEREZ Sex: F : 1995 Age: 24yWeight: 97.5 kgHeight/Length: 66 inBMI: 34.7ALLERGIES: None Date/Time Medication Administered Medication OrderedGiven TORADOL [IM] (KETOROLAC Toradol IM 30 mg21:11 02/19/2020 TROMETHAMINE)Sorbero, Lenin, R.N. Dose: 30 mg IMGiven ROCEPHIN [IM] (CEFTRIAXONE Rocephin IM 1000 mg21:11 02/19/2020 SODIUM)Lenin Pennington R.N. Dose: 1 gm IMGiven ATIVAN [PO] (LORAZEPAM) Ativan PO 1 mg21:10 02/19/2020 Dose: 1 mg Tablets POSorbLenin coyne R.N.Given TYLENOL [PO] (APAP) Tylenol 1 g PO X1 dose: 1000 mg21:11 02/19/2020 Dose: 1000 mg Capsules PO (NOW x1)Lenin Pennington R.N. Name Value Range Interpretation Code Description Data Zoila rce(s) Supporting Document(s) ID Date Data Source [id number] 02/19/2020 08:18:00 PM EDT [facility] 1 General Instructions [facility] Department [address] [place] [address] Phone #: ext- [phone] 02/19/2020 20:03 Patient: KINGSLEY PEREZ Sex: F : 1995 Age: 24yAcute serous right otitis media. No perforation of right tympanic membrane.Acute localized left otitis externa. Swimmer's ear.INSTRUCTIONSTake Tylenol (Acetaminophen) or Motrin (Ibuprofen) as needed for fever control. Take medicationaccording to label instructions.Drink plenty of fluids. Do not smoke.Warnings: Further evaluation is necessary.SEDATIVE MEDICATION: You were given sedative medication during your visit. Do not drive or operatedangerous machinery.CONTROLLED SUBSTANCE WARNINGS.GENERAL WARNINGS: Return or contact your physician immediately if your condition worsens orchanges unexpectedly, if not improving as expected, or if other problems arise.Prescription monitor program consulted by me. Prescription does not exceed state maximum supply ofmedicationsPrescription Medications:[place]ville 5 mg-325 mg tablet Take 1 tablet three times a day for 1 days -- Dispense 3 tablet. Refills: 0.Substitution permitted.[facility] - [id number] ; [place] [address]. FaxNumber: .Ciprodex 0.3 %- 0.1 % ear drops,suspension Instill 4 drop twice a day for 7 days -- Instill 4 drops intoaffected ear twice daily for 7 days. Dispense 1 bottle. Refills: 0. Substitution permitted. Note to Pharmacy -EAR DROPS.[facility] - [id number] ; [place] [address]. FaxNumber: .clindamycin HCl 300 mg capsule Take 1 capsule three times a day for 10 days -- Dispense 30 capsule.Refills: 0. Substitution permitted.[facility] - [id number] ; [place] [address]. Phone: FaxNumber: .Follow-up: 2 General Instructions [facility] Emergency Department [address] [place] [address] Phone #: ext- [phone] 02/19/2020 20:03 Patient: KINGSLEY PEREZ Sex: F : 1995 Age: 24yReturn to the emergency department as needed.Understanding of the discharge instructions verbalized by patient.Follow-up with: [facility], , , [address] [place], [address] Follow up. Call for the next available appointment. Reason for referral: evaluation, treatment and Toestablish care.Follow-up with: [facility], , [id number], [address] [place] [address], [place], [address] Follow up. Reason for referral: evaluation and treatment. ADDITIONAL INFORMATIONExternal Ear Infection (Adult)External otitis (also called "swimmer's ear") is an infection in the ear canal. It is often caused bybacteria or fungus. It can occur a few days after water gets trapped in the ear canal (from swimmingor bathing). It can also occur after cleaning too deeply in the ear canal with a cotton swab or otherobject. Sometimes, hair care produ cts get into the ear canal and cause this problem.Symptoms can include pain, fever, itching, redness, drainage, or swelling of the ear canal. Temporaryhearing loss may also occur.Home care 3 General Instructions [facility] [address] [place] [address] Phone #: ext- [phone] 02/19/2020 20:03 Patient: KINGSLEY PEREZ Sex: F : 1995 Age: 24y Do not try to clean the ear canal. This can push pus and bacteria deeper into the canal. Use prescribed ear drops as directed. These help reduce swelling and fight the infection. If an ear wick was placed in the ear canal, apply drops right onto the end of the wick. The wick will draw the medicine into the ear canal even if it is swollen closed. A cotton ball may be loosely placed in the outer ear to absorb any drainage. You may use acetaminophen or ibuprofen to control pain, unless another medicine was prescribed. Note: If you have chronic liver or kidney disease or ever had a stomach ulcer or GI bleeding, talk to your healthcare provider before taking any of these medicines. Do not allow water to get into your ear when bathing. Also, don't swim until the infection has cleared.Prevention Keep your ears dry. This helps lower the risk of infection. Dry your ears with a towel or vice chairman after getting wet. Also, use ear plugs when swimming. Do not stick any objects in the ear to remove wax. If you feel water trapped in your ear, use ear drops right away. You can get these drops over the counter at most drugstores. They work by removing water from the ear canal.Follow-up careFollow up with your healthcare provider in 1 week, or as advised.When to seek medical adviceCall your healthcare provider right away if any of these occur: Ear pain becomes worse or doesn't improve after 3 days of treatment Redness or swelling of the outer ear occurs or gets worse Headache Painful or stiff neck Drowsiness or confusion Fever of 100.4F (38C) or higher, or as directed by your healthcare provider Seizure [id number] [employer]. [address] [place] [address]. All rights reserved. 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 Always follow your healthcare professional's instructions. You have been given the following additional information: External Ear Infection (Adult)(Electronically signed by Milo Campbell P.A.-C 02/20/2020 17:29) Name Value Range Interpretation Code Description Data Zoila rce(s) Supporting Document(s) ID Date Data Source [id number] 02/19/2020 08:18:00 PM EDT [facility] 1 Clinical Report - Nurses [facility] Emergency Department [address] [place] [address] Phone #: ext- [phone] 02/19/2020 20:03 Patient: KINGSLEY PEREZ Sex: F : 1995 Age: 24yTRIAGEArrived by private vehicle. Historian: patient. Accompanied by family. ( went to [facility] 2 times andurgent care 2 times and another urgent care and given antibiotics, last seen monday and was called todayand told it was mrsa and when she went to pharmacy it was eye drops but nee d not call them).Acuity: LEVEL 4.Chief Complaint: RIGHT EAR PAIN.Alert.Onset. (2 months). The patient has had a nasal discharge. ( post nasal drip).Treatment MULTIFOCAL BUTTON GENERATOR:None.SEPSIS SCREEN: SIRS Screen negative. Sepsis Screen negative. No suspected or confirmed signs ofinfection present. --20:13 02/19/20 Tatiana Jimenez R.N.20:06 02/19/20. BP: 134/82. MAP: 99. HR: 93. RR: 18. O2 saturation: 96% on room air. Temp: 97.9 F(oral). Pain level now: 09/16. --20:13 02/19/20 Tatiana Jimenez R.N.Weight: 97.5 kg stated. Height/Length: 66 inches. BMI: 34.7. --20:06 02/19/20 Tatiana Jimenez R.N.MedicationsEar Drops. --20:09 02/19/20 Tatiana Jimenez R.N.AllergiesNone. --20:08 02/19/20 Tatiana Jimenez R.N.PROBLEMS:Spinal sprang.Head Injury.Ear infection. --20:10 02/19/20 Tatiana Jimenez R.N.ADDITIONAL SURGERIES:Wrist surgery. --20:10 02/19/20 Tatiana Jimenez R.N.HistoryPAST MEDICAL HX: Immunizations: up-to-date. Last normal menstrual period- Jul. Uses an intrauterinedevice.SOCIAL HX: Light tobacco smoker- less than 1/2 a pack per day. Occasional alcohol use. No drug use.The patient was offered HIV testing but declined and hepatitis C testing but declined. The patient has not 2 Clinical Report - Nurses [facility] Emergency Department [address] [place] [address] Phone #: ext- [phone] 02/19/2020 20:03 Patient: KINGSLEY PEREZ Sex: F : 1995 Age: 24y traveled outside the [place] Infectious disease exposure: No infectious disease exposure. 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 Patient is not a known carrier of tuberculosis, hepatitis, HIV, VRE or CRE. SELF HARM ASSESSMENT: Self harm assessment was performed. The patient answered "no" to the question(s) "Have you recently felt down, depressed, or hopeless?", "Do you have thoughts of harming or killing yourself?", "Do you have a plan for harming or killing yourself?", "Have you recently had thoughts about harming or killing others?", "Do you have any dangerous items in your possession?", "Have you noticed less interest or pleasure in doing things?", "Are you here because you tried to hurt yourself?" and "Have you ever tried to hurt yourself before today?". ABUSE ASSESSMENT: Abuse assessment. Abuse denied. No suspicion of abuse. No report of abuse. NUTRITIONAL RISK ASSESSMENT: The nutritional risk assessment revealed no deficiencies. FUNCTIONAL ASSESSMENT: Functional assessment: no impairments noted. LEARNING NEEDS ASSESSMENT: The learning needs assessment revealed no barriers. FALL RISK ASSESSMENT: Fall risk assessment completed. No risk factors identified. SKIN INTEGRITY ASSESSMENT: Skin integrity risk assessment completed. No skin integrity risk identified. --20:13 02/19/20 Tatiana Jimenez R.N. Interventions Identification band on patient. To treatment room. --20:13 02/19/20 Tatiana Jimenez R.N.PHYSICAL [id number] 02/19/20. Ambulatory to room.GENERAL / NEURO / PSYCH: Alert. Appears in no acute distress.HEENT: No facial asymmetry noted. EOM intact. No signs of head trauma.RESPIRATORY: Respirations not labored.CVS: Capillary refill less than 2 seconds.SKIN: Skin is warm and dry. --20:26 02/19/20 Lnein Pennington R.N.NURSING PROGRESS NOTESReassurance given. Two patient identifiers checked. Call light placed in reach. Side rails up x 2. Bedplaced in lowest position. Brakes of bed on. Patient ready for evaluation- ED physician and PA notified.--20:14 02/19/20 Tatiana Jimenez R.N. 21:02/19/2020 Ativan (LORazepam) PO Tablets 1 mg given. Allergies verified and confirmed 5 rights. Information reviewed with patient and spouse including reason for taking this medication, signs of allergic reaction, precautions and sedative warning. Verbalizes understanding. --21:10 02/19/20 Lenin Pennington R.N. 3 Clinical Report - Nurses [facility] Emergency Department [address] [place] [address] Phone #: ext- [phone] 02/19/2020 20:03 Patient: KINGSLEY PEREZ Sex: F : 1995 Age: 24y 21:02/19/2020 Tylenol (APAP) PO Capsules 1000 mg given. Allergies verified and confirmed 5 rights. Information reviewed with patient and spouse including reason for taking this medication, signs of allergic reaction and precautions. Verbalizes understanding. --21:02/19/20 Lenin Pennington R.N. 21:02/19/2020 Rocephin (cefTRIAXone Sodium) IM 1 gm given. Given in the right anterior lateral thigh (split dose). Allergies verified and confirmed 5 rights. Information reviewed with patient and spouse including reason for taking this medication, signs of allergic reaction and precautions. Verbalizes shadi ng. --21:02/19/20 Lenin Pennington R.N. 21:02/19/2020 Toradol (Ketorolac Tromethamine) IM 30 mg given. Given in the right anterior lateral thigh. Allergies verified and confirmed 5 rights. Information reviewed with patient and spouse including reason for taking this medication, signs of allergic reaction and precautions. Verbalizes understanding. --21:11 02/19/20 Lenin Pennington R.N.DISPOSITION / DISCHARGE [place] Coma Scale: 15- eyes open- spontaneous (4); best verbal response- oriented (5); best motor response- obeys commands (6). Departure time: 22:11 02/19/2020. Condition at departure: improved. No learning barriers present. Reviewed medication(s) side effects, precautions, dosing and course information. Prescription(s) sent electronically to pharmacy. Reviewed fever care instructions. Reviewed referral to an ear, nose, and throat specialist (medical esthetician) and family practice for followup. Reviewed need for increased fluid intake. Activity restrictions reviewed (no swimming until ea rs clear up). Patient verbalized understanding. Written instructions provided in Czech. The patient was discharged home and accompanied by crutcher helper. She left ambulatory and via private vehicle. Key Ringer driving. --22:11 02/19/20 Caleb Wyatt RN 22:09 02/19/20. BP: 122/95 taken on the left arm, via an automated monitor, while lying. MAP: 104. HR: 93 (regular, normal rate and strong). RR: 16 (regular, unlabored and normal). O2 saturation: 100% on room air. Temp: 97.7 F (oral). Pain level now: 09/16. --22:11 02/19/20 Caleb Wyatt RN.Locked/Released at 02/19/2020 22:11 by Caleb Wyatt RN Name Value Range Interpretation Code Description Data Zoila rce(s) Supporting Document(s) ID Date Data Source [id number] 02/19/2020 08:18:00 PM EDT [facility] 1 Clinical Report - Physicians/Mid Levels [facility] Emergency Department [address] [place] [address] Phone #: ext- [phone] 02/19/2020 20:03 Patient: KINGSLEY PEREZ Sex: F : 1995 Age: 24y Time Seen: 20:53 02/19/2020; initial patient contact, initial documentation. Arrived- By private vehicle. Historian- patient and family.HISTORY OF PRESENT ILLNESS Chief Complaint: EARACHE. This started about 2 months ago. Location- right ear. The pain is described as mild. The patient has had ear pain and drainage. No complaint of foreign body in the ear, ear trauma, recent barotrauma or tinnitus. (Pt sts that s/s have been presnet for 2 mths. sts that he has seen [facility] ER x 2, [facility] x 3 and recently saw a [facility] [place] and was rx'ed eye drops for ear compalitns and chose to come to this ER for eval and tx. Pt sts that she was contacted by the [facility] also becasue they did a culture and infomred she had MRSA. Wne to to pharmacy and only eye drops was there. Does not have a PCP and has not seen one. Pt sts taht she was on a few different drops; cortisporin and acetic acid. Also sts she was rx'ed amxoicllin in the time frame and even took her dogs doxycycline for a few weeks to help tx.). Similar symptoms previously. Recent medical care: The patient was seen recently at another facility in the emergency department and a clinic.REVIEW OF SYSTEMSUses an intrauterine device. No fever, chills, cough, difficulty breathing or chest pain. No headache, eyediscomfort, nausea, vomiting or diarrhea. No abdominal pain, difficulty with urination, skin rash, enlargedlymph nodes or joint pain. Has not had decreased oral intake. Denies current . All othersystems reviewed and are negative.PAST HISTORYSee nurses notes. Problems: Spinal sprang. Head Injury. Ear infection. Additional Surgeries: Wrist surgery. 2 Clinical Report - Physicians/Mid Levels [facility] Emergency Department [address] [place] [address] Phone #: ext- [phone] 02/19/2020 20:03 Patient: KINGSLEY PEREZ [facility]#: [id number] Sex: F : 1995 Age: 24y Medications: Ear Drops. Allergies: None.SOCIAL HISTORYLight tobacco smoker- less than 1/2 a pack per day. Occasional alcohol use. No drug use.ADDITIONAL NOTESThe nursing notes have been reviewed.PHYSICAL EXAMVital Signs: 02/19/2020 20:06 BP: 134/82. MAP: 99. HR: 93. RR: 18. O2 saturation: 96% on room air.Temp: 97.9 F. Pain level now: 09/16. Have been reviewed. Oxygen saturation normal.Appearance: Alert. No acute distress.Eyes: Eyes normal inspection.Nose: Nose normal.Ear (left): There is dullness of the tympanic membrane and abnormal insufflation. No tenderness of theauricle, pain with movement of the auricle, lymphadenopathy, erythema of the external canal or swelling ofthe external canal. No material in the external canal. Left ear normal. Normal mastoid.Throat: Pharyngeal erythema.Ear (right): There is erythema of the external canal, erythema and dullness of the tympanic membrane andabnormal insufflation. No tenderness of the auricle, pain with movement of the auricle orlymphadenopathy. Right ear normal. Normal mastoid.Neck: Neck supple and nontender. Full ROM.CVS: Normal heart rate and rhythm. No JVD present. Pulses normal. Capillary refill normal. Strongperipheral pulses. Heart sounds normal. Pulses: right radial 2+; left radial 2+.Respiratory: Chest normal on inspection. No respiratory distress. Unlabored respirations. Lungs clear.Good chest movement. Breath sounds normal and equal. Chest nontender.Skin: Skin warm and dry.Neuro: Awake. Alert. Mood/affect normal. Speech normal. No motor deficit. No sensory deficit.Psych: Cognition normal. Thought process and content normal. Insight and judgement normal.PROGRESS AND PROCEDURESCourse of Care: VSS, NAD, AOx3, interacting well and appropriately, no use of accessory muscle, able tospeak full sentences, stable, non-toxic looking. Enter room and pt lying peacefully in bed in NAD. Patient stable. Denies any new issues, concerns, or complaints. PE dmeos NV itnact b/l UE. Noted s/s c/w AOE. ? sinus issues as too. ? MRSA. Will tx sinus/AOM/MRSA with clindamycin and AOE with cipro drops. 3 Clinical Report - Physicians/Mid Levels [facility] Emergency Department [address] [place] [address] Phone #: ext- [phone] 02/19/2020 20:03 Patient: KINGSLEY PEREZ Sex: F : 1995 Age: 24y Enter room and patient lying peacefully in bed in NAD. Patient stable. Denies any new issues, concerns, or complaints. Discussed results with pt. Discussed tx plan with pt. Discussed and counseled on stable condition. Discussed importance of a f/u with PCP. Discussed return to ER criteria. Answered their questions. Indicates and verbalizes that they understand, agree, and will comply with above. Denies any new questions or concerns. Patient has capacity to understand. Discharge decision based on the following: patient's condition is stable; patient's exam is stable; social support is adequate; transportation is available; follow-up is available. Discussed of OTC Motrin and Tylenol to control inflammation and pain management. Informed to follow directions on bottle that are appropriate for age and/or weight. Disposition: Discharged home in good and improved condition. Condition: good and stable.CLINICAL IMPRESSION Acute serous right otitis media. No perforation of right tympanic membrane. Acute localized left otitis externa. Swimmer's ear.INSTRUCTIONS Take Tylenol (Acetaminophen) or Motrin (Ibuprofen) as needed fo r fever control. Take medication according to label instructions. Drink plenty of fluids. Do not smoke. Warnings: Further evaluation is necessary. SEDATIVE MEDICATION: You were given sedative medication during your visit. Do not drive or operate dangerous machinery. CONTROLLED SUBSTANCE WARNINGS. GENERAL WARNINGS: Return or contact your physician immediately if your condition worsens or changes unexpectedly, if not improving as expected, or if other problems arise. Prescription monitor program consulted by me. Prescription does not exceed state maximum supply of medications Prescription Medications: [place] 5 mg-325 mg tablet Take 1 tablet three times a day for 1 days -- Dispense 3 tablet. Refills: 0. Substitution permitted. [facility] - [id number] ; [place] [address]. 4 Clinical Report - Physicians/Mid Levels [facility] Emergency Department [address] [place] [address] Phone #: ext- [phone] 02/19/2020 20:03 Patient: KINGSLEY PEREZ Sex: F : 1995 Age: 24y . Ciprodex 0.3 %-0.1 % ear drops,suspension Instill 4 drop twice a day for 7 days -- Instill 4 drops into affected ear twice daily for 7 days. Dispense 1 bottle. Refills: 0. Substitution permitted. Note to Pharmacy - EAR DROPS. [facility] - [id number] ; [place] [address]. . clindamycin HCl 300 mg capsule Take 1 capsule three times a day for 10 days -- Dispense 30 capsule. Refills: 0. Substitution permitted. [facility] - [id number] ; [place] [address]. . Follow-up: Return to the emergency department as needed. Understanding of the discharge instructions verbalized by patient. Follow-up with: [facility], , , [address] [place], [address] Follow up. Call for the next available appointment. Reason for referral: evaluation, treatment and To establish care. Follow-up with: [facility], , [id number], [address] [place] [address], , [place], [address] Follow up. Reason for referral: evaluation and treatment.(Electronically signed by Milo Campbell P.A.-C 02/20/2020 17:29) Name Value Range Interpretation Code Description Data Zoila rce(s) Supporting Document(s) ID Date Data Source [id number] 02/14/2020 03:48:00 PM EDT [facility] ([facility], [facility]) Name Value Range Interpretation Code Description Data Zoila rce(s) Supporting Document(s) Wound Culture Laboratory test result Abnormal (applies to non-numeric results) [facility] ([facility], [facility]) <content>FULL REPORT IN LAB NOTES ([facility] a nd [facility]).</content>
<content></content>
<content>ORGANISM 1: STAPH.AUREUS METHICILLIN RESIS</content>
<content></content>
<content>QUANTITY OF GROWTH FEW</content>
<content></content>
<content>ORGANISM 2: MOLD LIKE ORGANISM</content>
<content></content>
<content>QUANTITY OF GROWTH FEW</content>
<content></content>
<content></content>
<content>ORGANISM 1: STAPH.AUREUS METHICILLIN RESIS</content>
<content>ORGANISM 2: MOLD LIKE ORGANISM</content>
<content></content>
<content>STAPH.AUREUS METHICILLIN RESIS: REACTION</content>
<content>ICR (INDUCIBLE CC RESISTANCE) IV ICR TEST RESULT</content>
<content>TETRACYCLINE PO 250 mg qid <=1 S</content>
<content>PENICILLIN G IV 1 mu q6H >=0.5 R</content>
<content>PENICILLIN G IV 1 mu q6h >=0.5 R</content>
<content>PENICILLIN G PO 250mg q6h fasting >=0.5 R</content>
<content> TRIMETHOPRIM/SULFAMETHOXAZOLE IV 160mg TMP & 800mg SMXq6h <=10 S</content>
<content>TRIMETHOPRIM/SULFAMETHOXAZOLE PO Bactrim DS Bid <=10 S</content>
<content>ERYTHROMYCIN IV 500mg q6h >=8 R</content>
<content>ERYTHROMYCIN PO 500mg q6h >=8 R</content>
<content>GENTAMICIN IV 80mg q8h <=0.5 S</content>
<content>CLINDAMYCIN IV 600mg q6h 0.25 R</content>
<content>CLINDAMYCIN PO 150mg q6h 0.25 R</content>
<content>OXACILLIN IV 500mg q6h >=4 R</content>
<content>VANCOMYCIN IV 500mg q8h 1 S</content>
<content>LINEZOLID (ZYVOX) IV 600MG Q12HR 2 S</content>
<content> LINEZOLID (ZYVOX) PO 600MG Q12HR 2 S</content>
<content>An isolate with a (+) POSITIVE ICR test is considered</content>
<content>CLINDAMYCIN RESISTANT; however, clindamycin may still</content>
<content>be effective in some patients.</content>
<content>An isolate with a (-) NEGATIVE ICR test is considered</content>
<content>CLIDAMYCIN SENSITIVE.</content>
<content></content> Procedure Social History Code Duration Value Status Description Data Source(s ) Alcohol intake 06/23/2020 12:00:00 AM EST Yes completed [facility] Smoking 06/23/2020 12:00:00 AM EST Current every day smoker co mpleted Current every day smoker [facility] Vital Signs ID Date Data Source UNK Name Value Range Interpretation Code Description Data Source(s) Body surface area Derived from formula 2.04 m2 2.04 m2 [facility] ([facility]) Body mass index (BMI) [Ratio] 38.0 kg/m2 38.0 k g/m2 [facility] ([facility]) Body height 64 [in_i] 64 [in_i] [facility] ([facility]) 5'4" Body weight 100.416 kg 100.416 kg [facility] ([facility]) Body weight 221.38 [lb_av] 221.38 [lb_av] [facility] ([facility]) Oxygen saturation in Arterial blood by Pulse oximetry 98 % 98 % [facility] ([facility]) Respiratory rate 16 /min 16 /min [facility] Body temperature 96.8 [degF] 96.8 [degF] [facility] ([facility]) Heart rate 104 /min 104 /min [facility] Diastolic blood pressure 82 mm[Hg] 82 mm[Hg] [facility] ([facility]) Systolic blood pressure 110 mm[Hg] 110 mm[Hg] M [facility] ([facility]) Oxygen saturation in Arterial blood by Pulse oximetry 98 % 98 % [facility] Body mass index (BMI) [Ratio] 37.25 kg/m2 37.25 kg/m2 [facility] Body weight 98.431 kg 98.431 kg [facility] Body height 162.6 cm 162.6 cm [facility] Heart rate 97 /min 97 /min [facility] Diastolic blood pressure 70 mm[Hg] 70 mm[Hg] [facility] Systolic blood pressure 108 mm[Hg] 108 mm[Hg] [facility] Body surface area Derived from formula 2.03 m2 2.03 m2 [facility] ([facility]) Body mass index (BMI) [Ratio] 37.6 kg/m2 37.6 k g/m2 [facility] ([facility]) Body height 64 [in_i] 64 [in_i] [facility] ([facility]) 5'4" Body weight 99.395 kg 99.395 kg [facility] ([facility]) Body weight 219.12 [lb_av] 219.12 [lb_av] [facility] ([facility]) Oxygen saturation in Arterial blood by Pulse oximetry 98 % 98 % [facility] ([facility]) Respiratory rate 16 /min 16 /min [facility] ( [facility]) Body temperature 97.6 [degF] 97.6 [degF] [facility] ([facility]) Heart rate 95 /min 95 /min [facility] ([facility]) Diastolic blood pressure 78 mm[Hg] 78 mm[Hg] [facility] ([facility]) Systolic blood pressure 122 mm[Hg] 122 mm[Hg] [facility] ([facility]) Body surface area Derived from formula 2.04 m2 2.04 m2 [facility] ([facility]) Body mass index (BMI) [Ratio] 37.8 kg/m2 37.8 k g/m2 [facility] ([facility]) Body height 64 [in_i] 64 [in_i] [facility] ([facility]) 5'4" Body weight 99.962 kg 99.962 kg [facility] ([facility]) Body weight 220.38 [lb_av] 220.38 [lb_av] [facility] ([facility]) Oxygen saturation in Arterial blood by Pulse oximetry 95 % 95 % [facility] ([facility]) Respiratory rate 16 /min 16 /min [facility] Body temperature 97.9 [degF] 97.9 [degF] [facility] ([facility]) Heart rate 112 /min 112 /min [facility] ([facility]) Diastolic blood pressure 78 mm[Hg] 78 mm[Hg] [facility] ([facility]) Systolic blood pressure 128 mm[Hg] 128 mm[Hg] [facility] ([facility]) Body surface area Derived from formula 2.04 m2 2.04 m2 [facility] ([facility]) Body mass index (BMI) [Ratio] 37.8 kg/m2 37.8 k g/m2 [facility] ([facility]) Body height 64 [in_i] 64 [in_i] [facility] ([facility]) 5'4" Body weight 99.792 kg 99.792 kg [facility] ([facility]) Body weight 220.00 [lb_av] 220.00 [lb_av] [facility] ([facility]) Oxygen saturation in Arterial blood by Pulse oximetry 97 % 97 % [facility] ([facility]) Respiratory rate 16 /min 16 /min [facility] ( [facility]) Body temperature 98.2 [degF] 98.2 [degF] [facility] ([facility]) Heart rate 89 /min 89 /min [facility] ([facility]) Diastolic blood pressure 78 mm[Hg] 78 mm[Hg] [facility] ([facility]) Systolic blood pressure 120 mm[Hg] 120 mm[Hg] M [facility] ([facility]) Body weight 99.792 kg 99.792 kg [facility] ([facility], ) Body mass index (BMI) [Ratio] 39.0 kg/m2 39.0 k g/m2 [facility] ([facility], ) Body weight 220.00 [lb_av] 220.00 [lb_av] [facility] ([facility], ) Body height 63 [in_i] 63 [in_i] [facility] ([facility], ) 5'3" Body weight 99.452 kg 99.452 kg [facility] ([facility]) Body weight 219.25 [lb_av] 219.25 [lb_av] [facility] ([facility]) Oxygen saturation in Arterial blood by Pulse oximetry 97 % 97 % [facility] ([facility]) Respiratory rate 18 /min 18 /min [facility] ( [facility]) Body temperature 98.4 [degF] 98.4 [degF] [facility] ([facility]) Heart rate 94 /min 94 /min [facility] ([facility]) Diastolic blood pressure 62 mm[Hg] 62 mm[Hg] [facility] ([facility]) Systolic blood pressure 125 mm[Hg] 125 mm[Hg] M [facility] ([facility]) Body mass index (BMI) [Ratio] 36.0 kg/m2 36.0 k g/m2 [facility] ([facility], [facility]) Body height 64 [in_i] 64 [in_i] [facility] ([facility]) 5'4" Body weight 210.00 [lb_av] 210.00 [lb_av] [facility] ([facility], [facility]) Body temperature 98.4 [degF] 98.4 [degF] [facility] ([facility], [facility]) Oxygen saturation in Arterial blood by Pulse oximetry 99 % 99 % [facility] ([facility], [facility]) Respiratory rate 16 /min 16 /min [facility] ( [facility], [facility]) Heart rate 68 /min 68 /min [facility] ([facility], [facility]) Diastolic blood pressure 73 mm[Hg] 73 mm[Hg] [facility] ([facility] [facility], [facility]) Systolic blood pressure 126 mm[Hg] 126 mm[Hg] M EDENT ([facility], [facility]) Body mass index (BMI) [Ratio] 36.0 kg/m2 36.0 k g/m2 MEDENT ([facility]) Body weight 210.00 [lb_av] 210.00 [lb_av] MEDEN T ([facility] ) Body height 64 [in_i] 64 [in_i] MEDENT ([facility]) 5'4" Body temperature 98.6 [degF] 98.6 [degF] [facility] ([facility] ) Patient Treatment Plan of Care Planned Activity Planned Date Details Description Data Source (s) Citalopram 20 MG Oral Tablet 06/12/2020 12:00:00 AM [facility] Magnesium Oxide 500 MG Oral Tablet 05/16/2020 12:00:00 AM [facility] Cholecalciferol 97963 UNT Oral Capsule 05/16/2020 12:00:00 AM [facility]
--- OUTSIDE RECORDS SUMMARY | 2020-08-09 21:17 | CCD | Continuity of Care Document ---
Author Author Kaye OLEARY MD Organization Unknown Address [address] [place] [address] Phone [phone] Care Team Providers Care Marine Service Operator Name Role Phone Samaria Oleary MD AUT[facility] [phone] [facility] Behavioral Health [facility] [phone] [facility] Gastroenterology AUTM [phone] [facility] ENT AUTM [phone] [facility] Nutrition Services AUTM [phone] [facility] AUTM [phone] [facility] AUTM [facility] Physical Therapy AUTM Problems Active Problems Provider [...] MD 05/15/2020 Vitamin D3 Ultra Potency 1.25mg (64571 Ut) Tablets 1 tablet once a week by mouth 12tajoanna ron MD 05/15/2020 Mirena (52 MG) 20mcg/24HR IUD after insert remove after 5 yr 1untootie Oleary MD 04/14/20 20 Citalopram Hydrobromide 20mg Table ts 1 tablet by mouth daily. 30tajoanna Oleary MD 12/2019 Glucometer Device test blood glucose three times daily 1units Samaria Oleayr MD 04/14/20 20 Glucose Meter Test Strips [...] H/L Range Note Laboratory test finding 05/15/2020 [facility] l Magnesium Serum <pending> Laboratory test finding 05/15/2020 [facility] l Glucose <pending> Debby Antibody <pending> Sedimentation Rate <pending> Ra Quantitative <pending> CPK <pending> Basic Metabolic Panel 04/14/2020 [facility] Basic Metabolic Pane (SEE NOTE) 1, 2 Sodium 138 mEq/L 134 - 153 Potassium [...] GFR >60 mL/min Non-Aa GFR >60 mL/min 3 Laboratory test finding 04/14/2020 [facility] l Hgba1c 6.2 % High 4.4 - 6.1 4 Order 04/14/2020 In Office Inhouse EKG Given to Pcp CBC No Diff 03/04/2020 [facility] CBC No Diff (SEE NOTE) 5 WBC 10.7 10^3/uL 4.2 - 11.0 RBC [...] 7.4 - 10.4 Comprehensive Metabolic Panel 03/04/2020 [facility] ospital Comprehensive Metabo (SEE NOTE) 6 Sodium 135 mEq/L 134 - 153 Potassium [...] >60 mL/min Afr Amer GFR >60 mL/min 7 Laboratory test finding 03/04/2020 [facility] TSH Highly Sensitive 0.84 uIU/mL 0.47 - 5.01 Vitamin D (25-Hydroxy) 25 NG/ML 8 Vitamin B12 Serum 383 pg/mL 232 - 1245 Hgba1c 6.3 % High 4.4 - 6.1 9 Culture MRSA 03/04/2020 [facility] Culture MRSA (SEE NOTE) 10 1 Is patient fasting? N 2 BASIC METABOLIC PANEL 3 Male GFR Interprentation 20-49 yrs >60 mL/min Normal 50-59 yrs >56 mL/min Normal 60-69 yrs >49 mL/min Normal 70-79yrs >42 mL/min Normal 80 and above >35 mL/min Normal Female GFR Interpretation 20-39 yrs >60 mL/min Normal 40-49 yrs >58 mL/min Normal 50-59 yrs >51 mL/min Normal 60-69 yrs >45 mL/min Normal 70-79 yrs >39 mL/min Normal 80 and above >32 mL/min Normal 4 {A1] {HB] 5 COMPLETE BLOOD COUNT [address] METABOLIC PANE L 7 Male GFR Interprentation 20-49 yrs >60 mL/min Normal 50-59 yrs >56 mL/min Normal 60-69 yrs >49 mL/min Normal 70-79yrs >42 mL/min Normal 80 and above >35 mL/min Normal Female GFR Interpretation 20-39 yrs >60 mL/min Normal 40-49 yrs >58 mL/min Normal 50-59 yrs >51 mL/min Normal 60-69 yrs >45 mL/min Normal 70-79 yrs >39 mL/min Normal 80 and above >32 mL/min Normal 8 VITAMIN-D(25HYDROXY) Deficiency: <=20 ng/ml Insufficiency: 21-29 ng/ml Preferred level: => 30 ng/ml 9 {A1] {HB] 10 _CULTURE MRSA SCREENING_ SEE SEPARATE REFERENCE LAB REPORT Procedures Date Code Description Status 04/14/2020 91135 Admin Patient Focused Health Ris k Assessment Instrument Completed 04/14/2020 73395 Brief Emotional/Beha v Assessment W/ Scoring Doc Per Standard Inst Completed 04/14/2020 73420 Electrocardiogram Complete Compl eted Medical Devices Description No Information Available Encounters Type Date Location Provider Dx Diagnosis Office Visit 05/15/2020 1:00p [facility] Samaria Oleary MD M79.10 Myalgia, unspecified site R55 Syncope and collapse R25.2 Cramp and spasm F32.89 Other specified depressive e pisodes Assessments Date Code Description Provider 05/15/2020 M79.10 [...] 1:00 pm - Samaria Oleary MD at [facility] 05/15/2020 - Samaria Oleary MD* M79.10 Myalgia, unspecified site * R55 Syncope and collapse * R25.2 Cramp and spasm * F32.89 Other specified depressive episodes * All * New Medication:* Magnesium 500 mg - 1 by mouth every day * Vitamin D3 Ultra Potency 1.25 mg (18521 Ut) - 1 tablet once a week by mouth * Follow up:* 3 months Functional Status Description No Information Available Mental Status Description No Information Available Referrals Refer to Reason for Referral Status Appt Date [facility] Physical Therapy 24-year-old female wi th neck and low back pain. Please evaluate and treat. Thank you. Closed [address] [place] [address] [phone] [facility] [[email or web address]] 24-year-old female with hist ory of syncope, but recently symptoms are getting more frequent. In-house EKG is normal. Please evaluate and treat. Thank you. Sent [address] [place], [place] [id number] [phone] [facility] 24-year-old female with h istory of recurrent syncope and dizziness, but recently symptoms are getting more frequent. Please evaluate and treat. Thank you. Patient Notified 05/05/2020 [address] [place] [address] [phone] [facility] Nutrition Services 24 year old with obesity and prediabe ronal A1c 6.4. 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 Please evaluate and treat as needed. Thank you. Patient Notified 04/13/2020 [address] [place] [address] [phone] [facility] Behavioral Health 24-year-old female with hist ory of depression. Please evaluate and treat as needed. Thank you. Closed 04/02/[address] [place] [address] [phone] [facility] ENT 24-year-old female with pers istent ear infection. ?chronic suppurative otitis media with perforation.Please evaluate and treat as needed. Thank you. Closed 03/20/[address] [address] [phone]
[2020-08-09] MEDS ORDERED: PANTOPRAZOLE 40MG VIAL (C9113 PER 1) IV ONE (22:00)
[2020-08-09] MEDS ORDERED: NS 1,000 ML IV ONE (22:00)
[2020-08-09 22:28] LABS: BASO # 0.1 10^3/uL (0.0-0.2); BASO % 0.5 % (0.0-1.0); EOS # 0.5 10^3/uL (0.0-0.5); EOS % 3.9 % (0.0-3.0); HEMATOCRIT 43.6 % (36.0-47.0); HEMOGLOBIN 14.2 g/dl (12.0-15.5); LYMPH # 4.2 10^3/uL (1.5-5.0); LYMPH % 34.7 % (24.0-44.0); MEAN CORPUSCULAR HEMOGLOBIN 28.6 pg (27.0-33.0); MEAN CORPUSCULAR HGB CONC 32.6 g/dl (32.0-36.5); MEAN CORPUSCULAR VOLUME 87.9 fl (80.0-96.0); MONO # 0.5 10^3/uL (0.0-0.8); MONO % 4.3 % (0.0-5.0); NEUTROPHILS # 6.9 10^3/uL (1.5-8.5); NEUTROPHILS % 56.3 % (36.0-66.0); PLATELET COUNT, AUTOMATED 292 10^3/uL (150-450); RED BLOOD COUNT 4.96 10^6/uL (4.00-5.40); WHITE BLOOD COUNT 12.2 10^3/uL (4.0-10.0)
[2020-08-09 22:34] LABS: APPEARANCE, URINE CLOUDY (CLEAR); BACTERIA, URINE AUTO 1+ (NEGATIVE); BILIRUBIN, URINE AUTO NEGATIVE (NEGATIVE); BLOOD, URINE BLOOD 2+ (NEGATIVE); COLOR, URINE YELLOW (YELLOW); GLUCOSE, URINE (UA) AUTO NEGATIVE (NEGATIVE); KETONE, URINE AUTO NEGATIVE (NEGATIVE); LEUKOCYTE ESTERASE, URINE AUTO 3+ (NEGATIVE); MUCUS, URINE SMALL (NEGATIVE); NITRITE, URINE AUTO NEGATIVE (NEGATIVE); PROTEIN, URINE AUTO 1+ mg/dL (NEGATIVE); RBC, URINE AUTO 5 /HPF (0-3); SPECIFIC GRAVITY URINE AUTO 1.023 (1.002-1.035); SQUAMOUS EPITHELIAL CELL UR AU 21 /HPF (0-6); UROBILINOGEN, URINE AUTO 0.2 mg/dL (0.0-2.0); WBC, URINE AUTO 15 /HPF (0-3)
[2020-08-09 22:54] LABS: HCG, SERUM QUALITATIVE NEGATIVE (NEGATIVE)
[2020-08-09 22:58] LABS: ALBUMIN 4.2 GM/DL (3.2-5.2); ALT/SGPT 25 U/L (12-78); BILIRUBIN,DIRECT 0.2 MG/DL (0.0-0.2); BILIRUBIN,TOTAL 0.5 MG/DL (0.2-1.0); BLOOD UREA NITROGEN 14 MG/DL (7-18); CALCIUM LEVEL 9.1 MG/DL (8.5-10.1); CARBON DIOXIDE LEVEL 30 MEQ/L (21-32); CHLORIDE LEVEL 107 MEQ/L (98-107); CK-MB VALUE MASS 1.2 NG/ML (<3.6); CPK CREATINE PHOSPHOKINASE 115 U/L (26-192); GLOMERULAR FILTRATION RATE > 60.0 (>60); GLUCOSE, FASTING 90 MG/DL (70-100); LIPASE 91 U/L (73-393); MB/CK RELATIVE INDEX 1.04 (< OR =4); SODIUM LEVEL 141 MEQ/L (136-145); TOTAL PROTEIN 8.2 GM/DL (6.4-8.2); TROPONIN I < 0.02 NG/ML (< 0.10)
--- NOTE | 2020-08-09 23:33 | REPVR ---
PROCEDURE INFORMATION: Exam: XR Chest, 1 View Exam date and time: 08/09/2020 11:18 PM Age: 24 years old Clinical indication: Chest pain; Type not specified TECHNIQUE: Imaging protocol: XR of the chest Views: 1 view. COMPARISON: CR Chest, 2 view PA, Lat 06/18/2016 5:52 PM FINDINGS: Lungs: Unremarkable. No consolidation. Pleural spaces: Unremarkable. No pleural effusion. No pneumothorax. Heart/Mediastinum: Unremarkable. No cardiomegaly. Bones/joints: Unremarkable. IMPRESSION: No acute infiltrates. Electronically signed by: Agustina Zamorano On 08/09/2020 23:32:58 PM
[2020-08-10 00:41] VITALS: BP 134/64
--- NOTE | 2020-08-10 20:34 | ECGEPIP ---
[facility] - ED Test Date: 2020-08-09 Pat Name: KINGSLEY PEREZ Department: Room: - Gender: Female Identity Management Developer: sb : 1995 Requested By: NICKY Broussard Order Number: [id number] Reading MD: Nabor Presley Measurements Intervals [place] Rate: 84 P: -4 NV: 142 QRS: 29 QRSD: 90 T: 30 QT: 377 QTc: 448 Interpretive Statements SINUS RHYTHM POOR R WAVE PROGRESSION SIMILAR TO 03/27/20 Electronically Signed on 08-10-2020 20:34:29 EST by Nabor Presley
== END 2020-08-10 01:12 | disposition home or self-care (01) ==
LOC: M ED 20:07
DX: K21.9 Gastro-esophageal reflux disease without esophagitis (principal); R42 Dizziness and giddiness; E11.9 Type 2 diabetes mellitus without complications; F41.0 Panic disorder [episodic paroxysmal anxiety]; Z79.899 Other long term (current) drug therapy; Z79.3 Long term (current) use of hormonal contraceptives
CPT/HCPCS: 71045; 80048; 80076; 81001; 82550; 82553; 83690; 84703; 85025; 85379; 93005; 96361; 96374; 99284; C9113

== ENCOUNTER 2021-03-05 04:11 | Emergency (ER) | payer OTHER ==
[~2021-03-05] VITALS: Ht 167.6 cm; Wt 95.5 kg
[2021-03-05 04:11] VITALS: BP 121/79
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
--- NOTE | 2021-03-10 11:15 | ED PDOC ---
Post-Departure Follow-Up radiology reports faxed to [facility] Akosua Trivedi MD Mar 10, 2021 11:15
== END 2021-03-05 05:27 | disposition left against medical advice (07) ==
LOC: M ED 04:11
DX: Z53.21 Procedure and treatment not carried out due to patient leaving prior to being seen by health care provider (principal)

== ENCOUNTER → 2021-06-30 | Outpatient (CLI) | payer OTHER ==
[~2021-06-30] MED LIST changes: -CITA10TA5; -CITA10TA5 PO; +CITA10TA7; +CITA10TA7 PO; +EFFE75CA2 PO; +LIDOCAINE 1% MDV 20ML VIAL As Ordered ONE
[2021-06-30 14:12] VITALS: BP 126/59
== END ==
LOC: M IRPRO 12:43
PROVIDERS: ATTEND Otolaryngology
DX: R59.0 Localized enlarged lymph nodes (principal)

== ENCOUNTER → 2021-10-25 | Outpatient (CLI) | payer OTHER ==
[~2021-10-25] MED LIST changes: -LIDOCAINE 1% MDV 20ML VIAL As Ordered ONE
== END ==
LOC: M RAD 14:23
PROVIDERS: ATTEND Otolaryngology
DX: R59.9 Enlarged lymph nodes, unspecified (principal)

== ENCOUNTER → 2021-12-18 | Outpatient (REF) | payer OTHER ==
[~2021-12-18] MED LIST changes: +EXCETAB32 PO; -EXCETAB33 PO
[2021-12-18 15:05] LABS: APPEARANCE, URINE HAZY (CLEAR); BACTERIA, URINE AUTO 1+ (NEGATIVE); BILIRUBIN, URINE AUTO NEGATIVE (NEGATIVE); BLOOD, URINE BLOOD NEGATIVE (NEGATIVE); COLOR, URINE YELLOW (YELLOW); GLUCOSE, URINE (UA) AUTO NEGATIVE (NEGATIVE); KETONE, URINE AUTO TRACE mg/dL (NEGATIVE); LEUKOCYTE ESTERASE, URINE AUTO NEGATIVE (NEGATIVE); MUCUS, URINE SMALL (NEGATIVE); NITRITE, URINE AUTO NEGATIVE (NEGATIVE); PROTEIN, URINE AUTO NEGATIVE (NEGATIVE); RBC, URINE AUTO 0 /HPF (0-3); SPECIFIC GRAVITY URINE AUTO 1.024 (1.002-1.035); SQUAMOUS EPITHELIAL CELL UR AU 4 /HPF (0-6); UROBILINOGEN, URINE AUTO 0.2 mg/dL (0.0-2.0); WBC, URINE AUTO 3 /HPF (0-3)
== END ==
LOC: M LAB REF 14:50
PROVIDERS: ATTEND Physician Assistant
DX: N39.0 Urinary tract infection, site not specified (principal)

== ENCOUNTER 2022-01-01 23:17 | Emergency (ER) | payer OTHER | END 2022-01-01 23:43 | disposition left against medical advice (07) | LOC: M ED 23:17 → EDBD 23:17 → M ED 23:43 | DX: Z53.21 Procedure and treatment not carried out due to patient leaving prior to being seen by health care provider (principal) ==

== ENCOUNTER → 2022-05-16 | Outpatient (CLI) | payer OTHER | LOC: M RAD 16:56 | PROVIDERS: ATTEND Otolaryngology | DX: R59.9 Enlarged lymph nodes, unspecified (principal) ==

== ENCOUNTER 2022-09-27 11:23 | Emergency (ER) | payer OTHER ==
[2022-09-27 12:18] LABS: HEMOGLOBIN 13.8 g/dl (12.0-15.5); MEAN CORPUSCULAR HEMOGLOBIN 29.6 pg (27.0-33.0); MEAN CORPUSCULAR HGB CONC 33.7 g/dl (32.0-36.5); MEAN CORPUSCULAR VOLUME 87.8 fl (80.0-96.0); PLATELET COUNT, AUTOMATED 270 10^3/uL (150-450); RED BLOOD COUNT 4.67 10^6/uL (4.00-5.40); WHITE BLOOD COUNT 11.3 10^3/uL (4.0-10.0)
[2022-09-27 12:58] LABS: ETHYL ALCOHOL (ETHANOL) < 0.003 % (0.000-0.010)
[2022-09-27 12:59] LABS: ACETAMINOPHEN LEVEL < 2.0 UG/ML (10.0-20.0)
[2022-09-27 13:00] LABS: SALICYLATE LEVEL < 3.0 MG/DL (<30)
[2022-09-27 13:02] LABS: ALBUMIN 4.2 G/DL (3.2-5.2); ALKALINE PHOSPHATASE 68 U/L (46-116); ALT/SGPT 20 U/L (7.0-40); AST/SGOT 25 U/L (<34); BILIRUBIN,DIRECT 0.3 MG/DL (<0.4); BILIRUBIN,TOTAL 1.1 MG/DL (0.3-1.2); BLOOD UREA NITROGEN 14 MG/DL (9-23); CALCIUM LEVEL 9.5 MG/DL (8.5-10.1); CARBON DIOXIDE LEVEL 24 MMOL/L (20-31); CHLORIDE LEVEL 106 MMOL/L (98-107); CREATININE FOR GFR 0.72 MG/DL (0.55-1.30); GLOMERULAR FILTRATION RATE > 60.0 (>60); GLUCOSE, FASTING 89 MG/DL (60-100); POTASSIUM SERUM 4.4 MMOL/L (3.5-5.1); SODIUM LEVEL 138 MMOL/L (136-145); THYROID STIMULATING HORMONE 1.339 uIU/ML (0.55-4.78); TOTAL PROTEIN 7.3 G/DL (5.7-8.2)
[2022-09-27 13:03] LABS: HCG, SERUM QUALITATIVE NEGATIVE (NEGATIVE)
[2022-09-27 13:39] VITALS: BP 125/85
[2022-09-27 14:50] LABS: BARBITURATES URINE NEGATIVE (NEGATIVE); BENZODIAZEPINES URINE NEGATIVE (NEGATIVE); COCAINE METABOLITE URINE NEGATIVE (NEGATIVE); METHADONE URINE NEGATIVE (NEGATIVE)
[2022-09-27 14:51] LABS: AMPHETAMINES LEVEL URINE POSITIVE (NEGATIVE); CANNABINOIDS URINE NEGATIVE (NEGATIVE); OPIATES URINE NEGATIVE (NEGATIVE); PHENCYCLIDINE URINE NEGATIVE (NEGATIVE)
== END 2022-09-27 17:32 | disposition home or self-care (01) ==
LOC: M ED 11:23
DX: F43.21 Adjustment disorder with depressed mood (principal); F15.10 Other stimulant abuse, uncomplicated; S50.811A Abrasion of right forearm, initial encounter; S50.812A Abrasion of left forearm, initial encounter; R45.851 Suicidal ideations; F10.10 Alcohol abuse, uncomplicated; Z79.82 Long term (current) use of aspirin

== ENCOUNTER → 2023-03-23 | Outpatient (CLI) | payer OTHER | LOC: M WHC 15:02 | PROVIDERS: ATTEND Specialist | DX: Z34.81 Encounter for supervision of other normal pregnancy, first trimester (principal); Z53.9 Procedure and treatment not carried out, unspecified reason ==

== ENCOUNTER → 2023-03-23 | Outpatient (CLI) | payer OTHER ==
[2023-03-23 18:16] LABS: HEMATOCRIT 37.2 % (36.0-47.0); HEMOGLOBIN 12.5 g/dl (12.0-15.5); MEAN CORPUSCULAR HEMOGLOBIN 29.5 pg (27.0-33.0); MEAN CORPUSCULAR HGB CONC 33.6 g/dl (32.0-36.5); MEAN CORPUSCULAR VOLUME 87.7 fl (80.0-96.0); PLATELET COUNT, AUTOMATED 243 10^3/uL (150-450); RED BLOOD COUNT 4.24 10^6/uL (4.00-5.40); WHITE BLOOD COUNT 9.6 10^3/uL (4.0-10.0)
[2023-03-23 19:16] LABS: HIV 1&2 SCREEN NEGATIVE (NEGATIVE)
[2023-03-23 19:25] LABS: HEPATITIS C VIRUS ABY INDEX 0.13 INDEX (<0.8)
[2023-03-23 21:03] LABS: GC DNA AMPLIFICATION NEGATIVE (NEGATIVE)
== END ==
LOC: M PLALAB 15:23
PROVIDERS: ATTEND Specialist
DX: Z34.81 Encounter for supervision of other normal pregnancy, first trimester (principal)

== ENCOUNTER → 2023-04-17 | Outpatient (CLI) | payer OTHER | LOC: M WHC 08:46 | PROVIDERS: ATTEND Specialist | DX: Z34.81 Encounter for supervision of other normal pregnancy, first trimester (principal) ==

== ENCOUNTER → 2023-04-24 | Outpatient (REF) | payer OTHER, MEDICAID | LOC: M SFHCWAGY 15:27 | PROVIDERS: ATTEND Obstetrics & Gynecology | DX: R82.90 Unspecified abnormal findings in urine (principal) ==

== ENCOUNTER → 2023-04-25 | Outpatient (CLI) | payer OTHER | LOC: M PLALAB 09:04 | PROVIDERS: ATTEND Obstetrics & Gynecology | DX: R82.90 Unspecified abnormal findings in urine (principal); Z87.898 Personal history of other specified conditions ==

== ENCOUNTER → 2023-05-01 | Outpatient (CLI) | payer OTHER | LOC: M WHC 08:14 | PROVIDERS: ATTEND Obstetrics & Gynecology | DX: Z36.2 Encounter for other antenatal screening follow-up (principal) ==

== ENCOUNTER → 2023-07-14 | Outpatient (REF) | payer OTHER ==
[2023-07-14 16:57] LABS: APPEARANCE, URINE CLOUDY (CLEAR); BACTERIA, URINE AUTO NEGATIVE (NEGATIVE); BILIRUBIN, URINE AUTO NEGATIVE (NEGATIVE); BLOOD, URINE BLOOD NEGATIVE (NEGATIVE); CALCIUM OXALATE CRYSTALS MODERATE; COLOR, URINE YELLOW (YELLOW); GLUCOSE, URINE (UA) AUTO NEGATIVE (NEGATIVE); KETONE, URINE AUTO TRACE mg/dL (NEGATIVE); LEUKOCYTE ESTERASE, URINE AUTO 3+ (NEGATIVE); MUCUS, URINE SMALL (NEGATIVE); NITRITE, URINE AUTO NEGATIVE (NEGATIVE); PROTEIN, URINE AUTO 1+ mg/dL (NEGATIVE); RBC, URINE AUTO 0 /HPF (0-3); SPECIFIC GRAVITY URINE AUTO 1.017 (1.002-1.035); SQUAMOUS EPITHELIAL CELL UR AU 15 /HPF (0-6); WBC, URINE AUTO 11 /HPF (0-3)
== END ==
LOC: M LAB REF 16:06
PROVIDERS: ATTEND Physician Assistant
DX: B34.9 Viral infection, unspecified (principal); N39.0 Urinary tract infection, site not specified

== ENCOUNTER 2023-07-29 18:06 | Outpatient (CLI) | payer OTHER ==
[~2023-07-29] VITALS: Ht 167.6 cm; Wt 106.8 kg
[2023-07-29 18:24] VITALS: BP 123/67
[2023-07-29] MEDS ORDERED: HOME MED LIST COMPLETE! XX SCH (18:30)
== END 2023-07-29 20:00 | disposition home or self-care (01) ==
LOC: M LDO 18:06
PROVIDERS: ATTEND Obstetrics & Gynecology
DX: O36.8130 Decreased fetal movements, third trimester, not applicable or unspecified (principal); Z3A.34 34 weeks gestation of pregnancy; O99.333 Smoking (tobacco) complicating pregnancy, third trimester; F17.210 Nicotine dependence, cigarettes, uncomplicated
CPT/HCPCS: 59025; G0463

== ENCOUNTER → 2023-08-02 | Outpatient (REF) | payer OTHER | LOC: M SFHCWAGY 10:01 | PROVIDERS: ATTEND Specialist | DX: R30.0 Dysuria (principal) ==

== ENCOUNTER → 2023-08-16 | Outpatient (REF) | payer OTHER ==
[~2023-08-16] MED LIST changes: +ACET-683 PO; +IBUP80TA PO
== END ==
LOC: M SFHCWAGY 17:23
PROVIDERS: ATTEND Obstetrics & Gynecology
DX: Z34.93 Encounter for supervision of normal pregnancy, unspecified, third trimester (principal)

== ENCOUNTER 2023-08-22 14:05 | Inpatient (IN) | payer OTHER ==
[2023-08-22] VITALS (32 sets, daily range): BP systolic 108–167; BP diastolic 55–106
[~2023-08-22] VITALS: Ht 167.6 cm; Wt 110.0 kg
[~2023-08-22 14:05] MED LIST changes: -ACET-683 PO; -IBUP80TA PO
[2023-08-22] MEDS ORDERED: HOME MED LIST COMPLETE! XX SCH (14:35)
[2023-08-22] MEDS ORDERED: OXYTOCIN DRIP 30 UNITS in IV 1 EA IV PRN (16:25)
[2023-08-22] MEDS ORDERED: CARBOPROST TROMETHAMINE 250 MCG/ML AMP IM PRN (16:25)
[2023-08-22] MEDS ORDERED: TRANEXAMIC ACID INJection 1,000 MG in NS 100 ML IV PRN (16:25)
[2023-08-22] MEDS ORDERED: LIDOCAINE 1% MDV 20ML VIAL INFIL PRN (16:25)
[2023-08-22 17:13] LABS: HEMATOCRIT 36.3 % (36.0-47.0); HEMOGLOBIN 12.2 g/dl (12.0-15.5); MEAN CORPUSCULAR HEMOGLOBIN 28.1 pg (27.0-33.0); MEAN CORPUSCULAR HGB CONC 33.6 g/dl (32.0-36.5); MEAN CORPUSCULAR VOLUME 83.6 fl (80.0-96.0); PLATELET COUNT, AUTOMATED 250 10^3/uL (150-450); RED BLOOD COUNT 4.34 10^6/uL (4.00-5.40)
[2023-08-22] MEDS: LACTATED RINGER'S 1000 ML IV STA (17:34)
[2023-08-22] MEDS: LR 1,000 ML IV SCH (17:34)
[2023-08-22 17:37] LABS: URIC ACID 4.1 MG/DL (3.1-7.8)
[2023-08-22 17:39] LABS: LDH LACTATE DEHYDROGENASE 193 U/L (120-246)
[2023-08-22 17:41] LABS: ALT/SGPT 14 U/L (7.0-40); AST/SGOT 15 U/L (<34); BILIRUBIN,TOTAL 0.5 MG/DL (0.3-1.2); CREATININE FOR GFR 0.59 MG/DL (0.55-1.30); GLOMERULAR FILTRATION RATE > 60.0 (>60)
[2023-08-22 17:49] LABS: TOTAL PROTEIN,RANDOM URINE 18.4 MG/DL (0.0-14.0)
[2023-08-22] MEDS ORDERED: FENTANYL 2MCG/ML ROPIVACAINE 0.2% IN 0.9% NACL 100ML IVBAG As Ordered ONE (17:50)
[2023-08-22 17:54] LABS: CREATININE,RANDOM URINE 70.8 MG/DL
[2023-08-22] MEDS ORDERED: NALOXONE INJ 0.4MG/1ML VIAL IV PRN (17:55)
[2023-08-22] MEDS ORDERED: ONDANSETRON 4MG 2ML VIAL IV PRN ×2 (17:55→23:30)
[2023-08-22] MEDS ORDERED: diphenhydrAMINE 50MG/ML VIAL IV PRN (17:55)
[2023-08-22] MEDS ORDERED: LR 500 ML IV PRN (17:55)
[2023-08-22] MEDS ORDERED: ePHEDrine SULFATE 25 MG/5 ML(5MG/ML) SYRINGE IVP PRN (17:55)
[2023-08-22] MEDS ORDERED: EPIDURAL/PCA KEYS XX PRN (17:55)
[2023-08-22] MEDS: FENTANYL/ROPIVACAINE/NACL BAG 100 ML EPIDURAL SCH (18:36)
[2023-08-22] MEDS ORDERED: ANUSOL HC CREAM 30GM TOP PRN (23:30)
[2023-08-22] MEDS ORDERED: ACETAMINOPHEN TAB 650MG DOSE (2X325MG) PO PRN (23:30)
[2023-08-22] MEDS ORDERED: DIBUCAINE 1% OINTMENT 30GM TOP PRN (23:30)
[2023-08-22] MEDS ORDERED: RHOGAM 300MCG (1500IU) INJ IM SCH (23:30)
[2023-08-22] MEDS ORDERED: DOCUSATE SODIUM 100MG CAPSULE PO PRN (23:30)
[2023-08-23] VITALS (8 sets, daily range): BP systolic 128–139; BP diastolic 72–92; O2SAT 98
[2023-08-23] MEDS: OXYTOCIN DRIP 30 UNITS in IV 1 EA IV SCH (01:51)
[2023-08-23] MEDS: LR 1,000 ML IV SCH (01:51)
[2023-08-23] MEDS: PRENATAL VITAMINS CHEWABLE TABLET PO SCH (09:12)
[2023-08-23] MEDS: IBUPROFEN 800 MG TAB PO PRN (09:12)
[2023-08-23] MEDS: ACETAMINOPHEN 500 MG TAB PO PRN (16:28)
[2023-08-24 05:54] VITALS: BP 139/84; O2SAT 99
[2023-08-24] MEDS: IBUPROFEN 600MG TAB PO PRN (08:19)
[2023-08-24] MEDS ORDERED: IBUP80TA PO (08:48)
[2023-08-24] MEDS ORDERED: ACET-683 PO (08:48)
[2023-08-24] MEDS ORDERED: MEASLES,MUMPS,RUBELLA VACCINE INJ (MMR-II) SC.IMMUN ONE (09:00)
== END 2023-08-24 12:30 | disposition home or self-care (01) | DRG 560 ==
LOC: M LDO 14:05 → M LDI 16:06 → M OBS 08-23 01:20
PROVIDERS: ADMIT Obstetrics & Gynecology; ATTEND Obstetrics & Gynecology
PROC: 10E0XZZ Delivery of Products of Conception, External Approach (ICD-10-PCS; principal; 2023-08-22)
PROC: 0KQM0ZZ Repair Perineum Muscle, Open Approach (ICD-10-PCS; 2023-08-22)
DX: O13.4 Gestational [pregnancy-induced] hypertension without significant proteinuria, complicating childbirth (principal); O70.1 Second degree perineal laceration during delivery; Z37.0 Single live birth; Z3A.37 37 weeks gestation of pregnancy

== ENCOUNTER 2023-10-30 11:46 | Emergency (ER) | payer MEDICAID, OTHER ==
[~2023-10-30] VITALS: Ht 167.6 cm; Wt 104.4 kg
[~2023-10-30 11:46] MED LIST changes: +ACET-683 PO; +IBUP80TA PO
[2023-10-30 11:47] VITALS: BP 133/60; TEMP 98.3; O2SAT 100
== END 2023-10-30 16:34 | disposition left against medical advice (07) ==
LOC: M ED 11:46
DX: Z53.21 Procedure and treatment not carried out due to patient leaving prior to being seen by health care provider (principal)

== ENCOUNTER → 2024-02-14 | Outpatient (REF) | payer OTHER, MEDICAID ==
[2024-02-14 17:42] LABS: APPEARANCE, URINE CLEAR (CLEAR); BACTERIA, URINE AUTO NEGATIVE (NEGATIVE); BILIRUBIN, URINE AUTO NEGATIVE (NEGATIVE); BLOOD, URINE BLOOD 2+ (NEGATIVE); COLOR, URINE STRAW (YELLOW); GLUCOSE, URINE (UA) AUTO 3+ mg/dL (NEGATIVE); KETONE, URINE AUTO NEGATIVE (NEGATIVE); LEUKOCYTE ESTERASE, URINE AUTO TRACE (NEGATIVE); MUCUS, URINE SMALL (NEGATIVE); NITRITE, URINE AUTO NEGATIVE (NEGATIVE); PROTEIN, URINE AUTO NEGATIVE (NEGATIVE); RBC, URINE AUTO 9 /HPF (0-3); SPECIFIC GRAVITY URINE AUTO 1.031 (1.002-1.035); SQUAMOUS EPITHELIAL CELL UR AU 6 /HPF (0-6); UROBILINOGEN, URINE AUTO 0.2 mg/dL (0.0-2.0); WBC, URINE AUTO 6 /HPF (0-3)
[2024-02-14 18:45] LABS: GC DNA AMPLIFICATION NEGATIVE (NEGATIVE)
[2024-02-14 18:54] LABS: Trichomonas vaginalis (AMP) NOT DETECTED (NEGATIVE)
== END ==
LOC: M LAB REF 16:19
PROVIDERS: ATTEND Physician Assistant Medical
DX: Z20.2 Contact with and (suspected) exposure to infections with a predominantly sexual mode of transmission (principal); N39.0 Urinary tract infection, site not specified

== ENCOUNTER → 2024-08-29 | Outpatient (CLI) | payer MEDICAID ==
[~2024-08-29] MED LIST changes: -ELIM5CRE2 TOP; +PERM60CR8 TOP
== END ==
LOC: M OUTALCOH 07:47
PROVIDERS: ATTEND Psychiatry & Neurology Psychiatry
DX: Z03.89 Encounter for observation for other suspected diseases and conditions ruled out (principal); Z72.0 Tobacco use

== ENCOUNTER → 2024-11-25 | Outpatient (CLI) | payer MEDICAID | LOC: M OUTALCOH 07:44 | PROVIDERS: ATTEND Psychiatry & Neurology Psychiatry | DX: F15.20 Other stimulant dependence, uncomplicated (principal); Z72.0 Tobacco use ==

== ENCOUNTER 2025-01-24 13:28 | Outpatient (RCR) | payer MEDICAID | END 2025-02-06 | LOC: M OUTALCOH 13:28 | PROVIDERS: ATTEND Psychiatry & Neurology Psychiatry | DX: F15.20 Other stimulant dependence, uncomplicated (principal); Z72.0 Tobacco use ==

== ENCOUNTER 2025-02-24 14:27 | Outpatient (RCR) | payer MEDICAID ==
[~2025-02-24 14:27] MED LIST changes: -IBUP-1022 PO; +IBUP600T42 PO
== END 2025-03-09 ==
LOC: M OUTALCOH 14:27
PROVIDERS: ATTEND Psychiatry & Neurology Psychiatry
DX: F15.20 Other stimulant dependence, uncomplicated (principal); Z72.0 Tobacco use

== ENCOUNTER 2025-03-31 12:54 | Outpatient (RCR) | payer MEDICAID | END 2025-04-08 | LOC: M OUTALCOH 12:54 | PROVIDERS: ATTEND Psychiatry & Neurology Psychiatry | DX: F15.20 Other stimulant dependence, uncomplicated (principal); Z72.0 Tobacco use ==

== ENCOUNTER 2025-05-05 12:51 | Outpatient (RCR) | payer MEDICAID | END 2025-05-09 | LOC: M OUTALCOH 12:51 | PROVIDERS: ATTEND Psychiatry & Neurology Psychiatry | DX: F15.20 Other stimulant dependence, uncomplicated (principal); Z72.0 Tobacco use ==

== ENCOUNTER 2025-06-02 12:54 | Outpatient (RCR) | payer MEDICAID | END 2025-06-08 | LOC: M OUTALCOH 12:54 | PROVIDERS: ATTEND Psychiatry & Neurology Psychiatry | DX: F15.20 Other stimulant dependence, uncomplicated (principal); Z72.0 Tobacco use ==

== ENCOUNTER 2025-07-07 16:00 | Outpatient (RCR) | payer MEDICAID | END 2025-07-09 | LOC: M OUTALCOH 16:00 | PROVIDERS: ATTEND Psychiatry & Neurology Psychiatry | DX: F15.20 Other stimulant dependence, uncomplicated (principal); Z72.0 Tobacco use ==